=== PATIENT | female | born 1980 ===

== ENCOUNTER 2020-04-23 13:58 | Outpatient (REF) | payer OTHER, SELFPAY ==
--- NOTE | 2020-04-23 13:59 | XR_ITS ---
EXAMINATION: XR SHOULDER, LEFT CLINICAL INFORMATION: Pain in left shoulder COMPARISON: 01/04/2010 TECHNIQUE: Three views of the left shoulder. FINDINGS: There is no fracture or dislocation. The left glenohumeral joint is well aligned. There is mild narrowing of the joint space. The acromioclavicular joint is intact. The visualized ribs are intact. The visualized lung is clear. XR/XR shoulder LT min 2V IMPRESSION: Mild narrowing of the left glenohumeral joint space. Otherwise unremarkable radiographs.
== END 2020-04-23 13:59 | disposition home or self-care (01) ==
LOC: HO.HOSX 13:58
PROVIDERS: Visit Provider Orthopaedic Surgery
DX: M25.512 Pain in left shoulder (principal)
CPT/HCPCS: 20610; 73030; J1100

== ENCOUNTER 2020-05-18 14:22 | Outpatient (REF) | payer OTHER, SELFPAY | END 2020-05-18 14:23 | disposition home or self-care (01) | LOC: HO.LAB 14:22 | PROVIDERS: PCP Internal Medicine; Visit Provider Internal Medicine | DX: Z20.828 Contact with and (suspected) exposure to other viral communicable diseases (principal) | CPT/HCPCS: C9803; U0003 ==

== ENCOUNTER 2020-06-25 12:58 | Outpatient (REF) | payer OTHER, SELFPAY ==
[2020-06-25 13:37] LABS: MANUAL DIFF FLAG NO
[2020-06-25 13:48] LABS: Basophils Absolute Auto 0.1 X10*3/uL (0.0-0.2); Basophils Percent Auto 0.7 % (0-2); Eosinophils Absolute Auto 0.1 X10*3/uL (0.0-0.4); Eosinophils Percent Auto 1.8 % (0-4); Hematocrit 38.2 % (37-47); Imm Gran Abs Auto 0.01 X10*3/uL (0.00-0.03); Imm Gran Pct Auto 0.1 % (0.0-0.4); Lymphocytes Absolute Auto 2.4 X10*3/uL (1.2-4.9); Lymphocytes Percent Auto 31.8 % (20-40); Mean Corpuscular Hemoglobin 32.8 pg (27.0-33.0); Mean Corpuscular Volume 96.5 fL (80-98); Mean Platelet Volume 10.4 fL (9.4-12.3); Monocytes Absolute Auto 0.5 X10*3/uL (0.1-1.2); Monocytes Percent Auto 6.2 % (2-11); Neutrophils Absolute Auto 4.5 X10*3/uL (2.0-8.3); Neutrophils Percent Auto 59.4 % (45-73); Platelet Count 408 X10*3/uL (160-400); Red Blood Count 3.96 X10*6/uL (4.20-5.50); Red Cell Distribution Width 11.6 % (11.0-16.0); White Blood Count 7.6 X10*3/uL (4.8-10.8)
[2020-06-25 14:08] LABS: Alanine Aminotransferase 16 U/L (0-31); Albumin Level 4.1 g/dL (3.5-5.0); Alkaline Phosphatase 79 U/L (39-117); Anion Gap 12 (12-20); Aspartate Amino Transferase 15 U/L (5-31); Bilirubin Total 0.3 mg/dL (0.0-1.0); Blood Urea Nitrogen 24 mg/dL (9-16); Calcium 9.1 mg/dL (8.4-10.2); Carbon Dioxide 23 mmol/L (22-29); Chloride 103 mmol/L (96-108); Cholesterol 145 mg/dL; Estimated Glomerular Filt Rate > 60; Glucose Random 85 mg/dL (60-115); HDL Cholesterol 67 mg/dL; LDL Cholesterol Calculated 62 mg/dl; Potassium 4.7 mmol/l (3.3-5.1); Sodium 133 mmol/L (135-145); Total Protein 7.4 g/dL (6.5-8.0); Triglycerides 84 mg/dL
[2020-06-25 14:28] LABS: Ferritin 35 ng/mL (10-122)
[2020-06-25 14:47] LABS: Vitamin B12 480 pg/mL (200-900)
== END 2020-06-25 12:59 | disposition home or self-care (01) ==
LOC: HO.LAB 12:58
PROVIDERS: Visit Provider Internal Medicine
DX: Z00.00 Encounter for general adult medical examination without abnormal findings (principal); S43.422S Sprain of left rotator cuff capsule, sequela; Z98.84 Bariatric surgery status
CPT/HCPCS: 36415; 80053; 80061; 82607; 82728; 85025

== ENCOUNTER 2020-12-29 14:59 | Outpatient (REF) | payer OTHER, SELFPAY ==
--- NOTE | ~2020-12-29 | XR_ITS ---
EXAMINATION: XR LEFT SHOULDER XR LUMBAR SPINE CLINICAL INFORMATION: Left shoulder pain. Sciatica chronic left side. COMPARISON: 04/23/2020 TECHNIQUE: 4 view left shoulder and 3 view lumbar spine. FINDINGS: Left Shoulder: Views of the left shoulder do not demonstrate any evidence of acute fracture or dislocation. No calcific tendinitis. Acromial spur is present. No significant abnormality of the acromioclavicular joint is seen. Glenohumeral joint appears unremarkable. Lumbar Spine: 3 views of the lumbar spine demonstrate 5 [id number] lumbar vertebra. Pedicles are intact. There is some narrowing of the L5-S1 disc space with bilateral facet arthropathy. No significant abnormality of the sacroiliac joints identified. No acute fracture, spondylolisthesis, or spondylolysis. Patient is status post previous left upper quadrant surgery. XR/XR lumbar spine 2-3V IMPRESSION: No significant bony abnormality of the left shoulder. No evidence of acute fracture, spondylolisthesis, or spondylolysis of the lumbar spine. Degenerative disc disease with facet arthropathy L5-S1.
--- NOTE | ~2020-12-29 | XR_ITS ---
EXAMINATION: XR LEFT SHOULDER XR LUMBAR SPINE CLINICAL INFORMATION: Left shoulder pain. Sciatica chronic left side. COMPARISON: 04/23/2020 TECHNIQUE: 4 view left shoulder and 3 view lumbar spine. FINDINGS: Left Shoulder: Views of the left shoulder do not demonstrate any evidence of acute fracture or dislocation. No calcific tendinitis. Acromial spur is present. No significant abnormality of the acromioclavicular joint is seen. Glenohumeral joint appears unremarkable. Lumbar Spine: 3 views of the lumbar spine demonstrate 5 [id number] lumbar vertebra. Pedicles are intact. There is some narrowing of the L5-S1 disc space with bilateral facet arthropathy. No significant abnormality of the sacroiliac joints identified. No acute fracture, spondylolisthesis, or spondylolysis. Patient is status post previous left upper quadrant surgery. XR/XR shoulder LT min 2V IMPRESSION: No significant bony abnormality of the left shoulder. No evidence of acute fracture, spondylolisthesis, or spondylolysis of the lumbar spine. Degenerative disc disease with facet arthropathy L5-S1.
== END 2020-12-29 15:00 | disposition home or self-care (01) ==
LOC: HO.XRAY 14:59
PROVIDERS: PCP Physician Assistant; Visit Provider Physician Assistant
DX: M53.9 Dorsopathy, unspecified (principal); M54.5 Low back pain
CPT/HCPCS: 72100; 73030

== ENCOUNTER 2021-04-16 10:07 | Emergency (ER) | payer OTHER, SELFPAY ==
[2021-04-16 10:11] VITALS: BP 108/58; PULSE 79; RESP 16; TEMP 36.9; O2SAT 96; BMI 39.4
[2021-04-16] MEDS: Lidocaine HCl 1 % MPF 5 ML VIAL SUBCUT ×2 (11:04)
--- NOTE | 2021-04-16 11:28 | ED.SKABFB ---
HPI - Skin/Abscess/Foreign Bdy General Chief complaint: Skin/Abscess/Foreign Body Stated complaint: abscess Time Seen by Provider: 04/16/21 10:49 Source: patient Mode of arrival: ambulatory Limitations: no limitations History of Present Illness MD complaint: abscess/boil Onset (ago): day(s) (Since last ) Location: RUE (Axillary) Severity: severe Severity scale (1-10): >10 Quality: aching and constant Pain Consistency: constant Relieving factors: none Exacerbating factors: palpation and movement (Of the right arm) Context: none Associated symptoms: denies other symptoms Treatments prior to arrival: attempted to drain pus at home and other (Placed on Augmentin and Bactrim by PCP on Monday and had a I&D by PCP IN OFFICE) Related Data Home Medications Medication Instructions Recorded Confirmed cyclobenzaprine 10 mg tablet 10 mg PO BEDTIME 04/23/20 05/04/20 Previous Rx's Medication Instructions Recorded ibuprofen 600 mg tablet 600 mg PO Q8H PRN #90 tab 04/23/20 oxycodone 5 mg tablet 5 mg PO Q6H PRN #14 tab 04/16/21 Allergies Allergy/AdvReac Type Severity Reaction Status Date / Time SEASONAL ALLERGIES Allergy Intermediate RUNNY NOSE Uncoded 05/04/20 13:28 WATERY ITCHY EYES Review of Systems Review of Systems: Constitutional : No Fever, No Chills, Cardiovascular : No Chest Pain, No SOB Respiratory : No Dyspnea Gastrointestinal : No abdominal pain Musculoskeletal : No Joint Swelling Skin : positive skin abscess with surrounding erythema noted no skin laceration, No Foreign bodies, No rash Neuro : No Weakness, No Numbness/tingling Psych : No SI/HI/thoughts of self injury Yes all other systems are reviewed and are negative [facility] Past Medical History Attestation statement: The following information was validated with the patient. Medical History Asthma Surgical History History of tubal ligation (~2003) Hx of laparoscopic gastric banding (~2005) Family History Family History Mother No problems noted. Father No problems noted. 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 Blood pressure normal Heart rate normal. Respiration rate normal. Temperature normal. Oxygen saturation normal. Appearance: Alert. Oriented X3. No acute distress. Head: Normal external exam. Normocephalic. Atraumatic. Eyes: PERRLA. EOMI. Conjunctiva and sclera normal. Eyelids normal. ENT: Pharynx normal. Uvula midline. Moist mucous membranes. Neck: Normal inspection. Neck supple. FROM. CVS: Normal heart rate and rhythm. Respiratory: No respiratory distress. Painless inspiration. Skin: Skin warm and dry. Normal skin color. Normal skin turgor. To right axillary patient has a moderate-sized fluctuant abscess with mild surrounding erythema no streaking/induration or purulent drainage noted at this time. Otherwise no additional rashes/lesions/lacerations noted. Extremities: Extremities exhibit normal range of motion and nontender. Neuro: Oriented X 3. No motor deficit. No sensory deficit. Reflexes normal. Normal steady gait. No focal neuro deficits noted. Course Course Course Narrative: 40-year-old female presenting to the ED with complaints of worsening abscess to the right axillary since . She reports that she went to an urgent care and they prescribed her an antibiotic then her symptoms worsened therefore she called her PCP and she was seen by her PCP on Monday in the office and the PCP added another antibiotic therefore now she is on Bactrim and Augmentin at the same time and the PCP also performed an incision and drainage although patient reports that she has worsening swelling and came here for further evaluation treatment. On exam patient noted to have an abscess therefore she is now status post I&D of abscess. She tolerated procedure well. No complications. I instructed her to continue taking her antibiotics as previously prescribed and to return if any new or worsening symptoms and to follow up with primary care provider. Patient understands agrees with this plan. MDM - Skin/Abscess/Foreign Bdy Medical Records Attestation: I reviewed the patient's medical records. Procedures Abscess I/D Site: upper extremity (Axillary) Side (if applicable): right Local Anesthetic: lidocaine 1% Amount of anesthesia used (mL): 6 Technique: incised with blade Amount of fluid expressed (mL): 10 Sent for culture/gram staining?: No Irrigation: Yes Packing used?: none Complications: other (no complications ) Discharge Plan Discharge Clinical Impression: Cellulitis, Abscess of skin or subcutaneous tissue Patient Disposition: Home, Self-Care Instructions: Cellulitis (ED), Abscess Incision and Drainage (DC), Warm Compress or Soak (ED) Prescriptions: New oxycodone 5 mg tablet 5 mg PO Q6H PRN (Reason: pain) Qty: 14 RF: 0 No Action cyclobenzaprine 10 mg tablet 10 mg PO BEDTIME RF: 0 ibuprofen 600 mg tablet 600 mg PO Q8H PRN (Reason: pain shoulder) Qty: 90 RF: 0 Referrals: Janis Spears PA-C [Primary Care Provider] - 2 days Stand Alone Forms: Work/School Release Print Language: South African
== END 2021-04-16 11:38 | disposition home or self-care (01) ==
PROVIDERS: Emergency Provider Emergency Medicine; PCP Physician Assistant
DX: L02.411 Cutaneous abscess of right axilla (principal); L03.111 Cellulitis of right axilla
CPT/HCPCS: 10060; 99283; 99284

== ENCOUNTER 2023-03-20 09:47 | Outpatient (AMB) | payer OTHER, SELFPAY ==
[2023-03-20 09:55] VITALS: BP 128/72; PULSE 74; O2SAT 98; BMI 33.3
--- NOTE | 2023-03-20 09:55 | MHC.PC.OV ---
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 PMHx: Obesity SurgHx: Lap Band, Tubal Lig FHx: Mom: Asthma, Schizophrenia. Dad: Asthma SocHx: Smoked 7 years x 1/2 ppd. Quit cigs 2003. EtOH Occasional wine 1-2 drinks. No drugs. PFSH Medical History (Updated 03/20/23 @ 10:39 by Fredo Shelton) Acid reflux Sinusitis Lower back pain Asthma Surgical History (Updated 03/20/23 @ 10:37 by Fredo Shelton) Hx of laparoscopic gastric banding (~2005) History of tubal ligation (~2003) Family History (Updated 03/20/23 @ 10:13 by Chiquis Butler CMA) Mother Schizophrenia Mental health disorder Asthma Father Asthma Sister Substance abuse Social History (Updated 03/20/23 @ 10:12 by Chiquis Butler CMA) Household Members: Family Both parents involved: No Caregiver staying overnight: No Housing: House Are you a primary resident care provider to a significant other at home: No Do you presently have visiting nurse or other home services: No 75 years or older and lives alone: No Alcohol intake: current Patient Tobacco Use Status: Former Tobacco user e-Cigarette/Vaping Use: Never Used Use of substances other than those prescribed or required for medical reasons: No Have you been hit, kicked, punched, or otherwise hurt by someone within the past year? 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 1. Little interest or pleasure in doing things: several days 2. Feeling down, depressed, or hopeless: nearly every day 3. Trouble falling or staying asleep, or sleeping too much: nearly every day 4. Feeling tired or having little energy: more than half the days 5. Poor appetite or overeating: not at all 6. Feeling bad about yourself - or that you are a failure or have let yourself or your family down: more than half the days 7. Trouble concentrating on things, such as reading the newspaper or watching television: not at all 8. Moving or speaking so slowly that other people could have noticed. Or the opposite - being so fidgety or restless that you have been moving around a lot more than usual: nearly every day 9. Thoughts that you would be better off or of hurting yourself in some way: not at all Total score: 14 Source: Developed by Drs. Placido Dietrich, Ольга Galaviz, aKvon Mariee and colleagues, with an educational cristofer from [employer]. Thrive Questionnaire Date Thrive assessed: 03/20/23 I am a: Patient What is your living situation today?: I have a steady place to live Within the past 12 months, did the food you bought not last and you didn't have the money to get more?: Never true Within the past 12 months, did you worry whether your food would run out before you got money to buy more?: Never true Do you have trouble paying for medicines?: No Do you have trouble getting transportation to medical appointments?: No Do you have trouble paying your heating and electricity bill?: No Do you have trouble taking care of your child, family member or friend?: No Do you have trouble with day-to-day activities such as bathing, preparing meals, shopping, managing finances, etc.?: No Are you currently unemployed and looking for a job?: No Are you interested in more education?: No AUDIT C Alcohol Use Questionnaire (AUDIT-C) 1. How often do you have a drink containing alcohol?: 2-4 times a month 2. How many drinks containing alcohol do you have on a typical day when you are drinking?: 1 or 2 3. How often do you have six or more drinks on one occasion?: Never Total Score: 2 LATONYA-7 AMB Questionnaire LATONYA-7 Date LATONYA - 7 assessed: 03/20/23 Feeling nervous, anxious, or on edge: 0 = Not at all Not being able to stop or control worryin = Not at all Worrying too much about different things: 2 = More than half the days Trouble relaxin = Several days Being so restless that it is hard to sit still: 3 = Nearly every day Becoming easily annoyed or irritable: 2 = More than half the days Feeling afraid as if something awful might happen: 0 = Not at all Total LATONYA-7 score (0-4 normal; 5-9 mild; 10-14 moderate; 15-21 severe): 8 Source: Developed by Drs. Placido Dietrich, Ольга Galaviz, Kavon Mariee and colleagues, with an educational cristofer from [employer]. ACT Questionnaire In the past 4 weeks, how much of the time did your asthma keep you from getting as much done at work, school or at home?: Some of the time During the past 4 weeks, how often have you had shortness of breath?: 1-2 times a week During the past 4 weeks, how often did your asthma symptoms wake you up at night or earlier than usual in the morning?: Not at all During the past 4 weeks, how often have you had to use your rescue inhaler or nebulizer medication?: 1-2 times a week How would you rate your asthma control during the past 4 weeks?: Somewhat controlled Score: 17 Review of Systems Const Denies chills, Denies fatigue, Denies fever(s), Denies headache(s) and Denies weakness ENT Denies dizziness and Denies headache(s) Card Denies chest pain, Denies lightheadedness, Denies dyspnea and Denies other (Palpitations) Resp Denies cough, Denies dyspnea, Denies wheezing and Denies other ( shortness of breath) Musc Denies numbness and Denies tingling Neuro Denies dizziness, Denies headache(s), Denies numbness, Denies tingling, Denies paresthesias and Denies weakness Psych Denies anxiety and Denies depression Endo Denies fatigue Aller/Immun Denies wheezing Physical exam (Primary Care) Vital Signs: Last Vital Signs Pulse 74 03/20/23 09:55 BP 128/72 03/20/23 09:55 Pulse Ox 98 03/20/23 09:55 Oxygen Delivery Method Room Air 03/20/23 09:55 BMI result Body Mass Index 33.3 Tobacco/Smoking Status: Tobacco use Status Tobacco use date assessed 03/20/23 03/20/23 10:22 Patient Tobacco Use Status Former Tobacco user 03/20/23 10:22 e-Cigarette/Vaping Use Never Used 03/20/23 10:22 PHQ-9: PHQ-9 Score PHQ-9: Total score 14 03/20/23 10:28 Thrive Assessment: Date of Thrive Assessment Date Thrive assessed 03/20/23 03/20/23 10:22 Const General: no acute distress and well developed Nutritional Appearance: well nourished Orientation/consciousness: patient oriented [facility]3 [facility] Head: Yes normocephalic and Yes atraumatic Eyes General: appearance normal, both eyes and all related structures Pupils: Equal, round and reactive pupils present EOM: EOMs intact bilaterally Resp Effort & Inspection: normal respiratory effort Auscultation: clear to auscultation bilaterally Cardio Rate: regular rate Rhythm: regular rhythm Heart sounds: S1 normal heart sound present, S2 normal heart sound present, no gallops, no murmurs and no rubs Neuro General: patient oriented x3 and gait normal Cranial nerves: Yes Equal, round and reactive pupils present Psych Affect: normal affect Assessment and Plan Assessment & Plan (1) Obesity: Code(s): E66.9 - Obesity, unspecified Plan: S/p?lap?band Patient?wants?to?continue?weight?loss.??She?is?followed?by?Dr. Suh. Encouraged?her?to?follow-up?with?her?weight?management?specialist?as?recommended. She?also?notes?some?chafing?at?her?thighs?though?this?has?resolved?since?summer?has?ended. She?can?let?me?know?if?this?resumes?and?we?can?evaluate. (2) Hx of laparoscopic gastric banding: Onset Date: ~2005 Code(s): Z98.84 - Bariatric surgery status Plan: As?above,?follow-up?with?your?weight?management?specialist (3) History of tubal ligation: Onset Date: ~2003 Code(s): Z98.51 - Tubal ligation status Plan: Stable (4) Laboratory exam ordered as part of routine general medical examination: Code(s): Z00.00 - Encounter for general adult medical examination without abnormal findings Plan: Check?lab Orders: Orders Comprehensive Only. Panel Fast Today Z00.00 - Encounter for general adult medical examination without abnormal findings Complete Blood Count Auto Diff Today Z00.00 - Encounter for general adult medical examination without abnormal findings Microalbumin, Random (w Creat) Today I10 - Essential (primary) hypertension Lipid Panel Today Z00.00 - Encounter for general adult medical examination without abnormal findings Vitamin B12 and Folate Today E53.8 - Deficiency of other specified B group vitamins UA and rflx microscopic Today Z00.00 - Encounter for general adult medical examination without abnormal findings TSH reflex Free T4 Today Z00.00 - Encounter for general adult medical examination without abnormal findings Medications: Discontinued oxycodone Discontinued Reason: Patient Completed Course 5 mg PO Q6H PRN 14 tabs 0RF pain Coding Level of Care Code New Pt Level 3 (93918) Diagnoses Obesity E66.9 Hx of laparoscopic gastric banding Z98.84 History of tubal ligation Z98.51 Laboratory exam ordered as part of routine general medical examination Z00.00
== END 2023-03-20 10:49 | disposition home or self-care (01) ==
PROVIDERS: PCP Family Medicine; Visit Provider Family Medicine
DX: E66.9 Obesity, unspecified (principal); Z98.84 Bariatric surgery status; Z98.51 Tubal ligation status; Z68.33 Body mass index [BMI] 33.0-33.9, adult
CPT/HCPCS: 99203

== ENCOUNTER 2023-07-12 08:40 | Outpatient (AMB) | payer OTHER, SELFPAY ==
[2023-07-12 08:52] VITALS: BP 120/72; PULSE 64; O2SAT 96; BMI 33.9
--- NOTE | 2023-07-12 08:52 | A.OFFPC_ITS ---
Vital Signs 07/12/23 08:52 Height 5 ft 3 in Weight 191 lb 4 oz BMI 33.9 BP 120/72 Blood Pressure Location Lt brachial Position Sitting Pulse 64 Pulse Source Pulse Oximeter Pulse Oximetry (%) 96 Oxygen Delivery Method Room Air Intake Visit Reasons: CPE with f/u labs and health maint/ Pre OP Intake Note: Patient is here for her physical today. She is getting surgery on breasts and tummy tuck done, has a form to fill out. Allergies pineapple Allergy (Intermediate, Verified 07/12/23 08:59) Anaphylaxis SEASONAL ALLERGIES Allergy (Intermediate, Uncoded 07/12/23 08:59) RUNNY NOSE WATERY ITCHY EYES Medication List - Last Reconciled 07/12/23 by Tavares Canseco MD bupropion HCl 150 mg PO QAM diclofenac sodium 75 mg PO BID fluticasone propionate 50 mcg/actuation 1 spray intranasal BID ibuprofen 600 mg PO Q8H PRN omeprazole 20 mg PO DAILY 30 days Tobacco use date assessed: 03/20/23 Dental Screening Dental Screen Date: 07/12/23 HPI CPE with f/u labs and health maint/ Pre OP HPI Details 42 y/o female presents for an extended e xam with f/u labs and health maintenance. Also here for a pre-operative clearance No recent labs to review. Pt reports GERD and has been taking OTC omeprazole every 2 days for relief. Patient presents for preoperative clearance prior to breast reduction & abdominoplasty. Procedure: Breast Reduction & Abdominoplasty Date: 07/28/23 Surgeon: Yessenia Loyola Anesthesia: General Cardiac Hx: None Pulmonary Hx: None Prior Surgical complications: None Prior Anesthesia Complications: None Coag Issues: None Functional [place]: Good functional reserve. HPI Comments History of Present Illness Details Documentation assistance for Tavares Canseco MD, was provided by Fredo Shelton,? Credit Control Administrator on 07/12/2023 9:29 AM SUSAN. Lizett, Dr. Canseco, have read, observed, and verified documentation. [facility] Medical History Acid reflux Sinusitis Lower back pain Asthma Surgical History Hx of laparoscopic gastric banding (~2005) History of tubal ligation (~2003) Family History Mother Schizophrenia Mental health disorder Asthma Father Asthma Sister Substance abuse Social History Household Members: Family Both parents involved: No Caregiver staying overnight: No Housing: House Are you a primary care tech to a significant other at home: No Do you presently have visiting nurse or other home services: No 75 years or older and lives alone: No Alcohol intake: current Patient Tobacco Use Status: Former Tobacco user e-Cigarette/Vaping Use: Never Used service: No Current occupational status: employed 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 1. Little interest or pleasure in doing things: not at all 2. Feeling down, depressed, or hopeless: not at all 3. Trouble falling or staying asleep, or sleeping too much: not at all 4. Feeling tired or having little energy: not at all 5. Poor appetite or overeating: not at all 6. Feeling bad about yourself - or that you are a failure or have let yourself or your family down: not at all 7. Trouble concentrating on things, such as reading the newspaper or watching television: not at all 8. Moving or speaking so slowly that other people could have noticed. Or the opposite - being so fidgety or restless that you have been moving around a lot more than usual: not at all 9. Thoughts that you would be better off or of hurting yourself in some way: not at all Total score: 0 Source: Developed by Drs. Placido Dietrich, Ольга Galaviz, Kavon Mariee and colleagues, with an educational cristofer from [employer]. Thrive Questionnaire Date Thrive assessed: 07/12/23 I am a: Patient What is your living situation today?: I have a steady place to live Within the past 12 months, did the food you bought not last and you didn't have the money to get more?: Never true Within the past 12 months, did you worry whether your food would run out before you got money to buy more?: Never true Do you have trouble paying for medicines?: No Do you have trouble getting transportation to medical appointments?: No Do you have trouble paying your heating and electricity bill?: No Do you have trouble taking care of your child, family member or friend?: No Do you have trouble with day-to-day activities such as bathing, preparing meals, shopping, managing finances, etc.?: No Are you currently unemployed and looking for a job?: No Are you interested in more education?: No THRIVE Score: 0 AUDIT C Alcohol Use Questionnaire (AUDIT-C) 1. How often do you have a drink containing alcohol?: Monthly or less 2. How many drinks containing alcohol do you have on a typical day when you are drinking?: 1 or 2 3. How often do you have six or more drinks on one occasion?: Never Total Score: 1 LATONYA-7 AMB Questionnaire LATONYA-7 Date LATONYA - 7 assessed: 07/12/23 Feeling nervous, anxious, or on edge: 0 = Not at all Not being able to stop or control worryin = Not at all Worrying too much about different things: 0 = Not at all Trouble relaxin = Not at all Being so restless that it is hard to sit still: 0 = Not at all Becoming easily annoyed or irritable: 0 = Not at all Feeling afraid as if something awful might happen: 0 = Not at all Total LATONYA-7 score (0-4 normal; 5-9 mild; 10-14 moderate; 15-21 severe): 0 Source: Developed by Drs. Placido Dietrich, Ольга Galaviz, Kavon Mariee and colleagues, with an educational cristofer from [employer]. Review of Systems Const Denies chills, Denies fatigue, Denies fever(s), Denies headache(s) and Denies weakness Eyes Denies change in vision ENT Denies dizziness, Denies headache(s), Denies hearing loss, Denies nasal congestion, Denies sinus pain, Denies sinus pressure and Denies sore throat Card Denies chest pain, Denies lightheadedness, Denies dyspnea and Denies other (palpitations) Resp Denies cough, Denies dyspnea and Denies wheezing GI Denies abdominal pain, Denies melena, Denies hematochezia, Denies change in bowel habits, Denies dyspepsia and Denies nausea Denies hematuria and Denies dysuria Musc Denies abnormal gait, Denies myalgias, Denies arthralgias, Denies numbness and Denies tingling Skin/Breast Denies rash, Denies unusual bruising and Denies wounds Neuro Denies abnormal gait, Denies dizziness, Denies headache(s), Denies memory loss, Denies numbness, Denies Sensory deficit (Neuro), Denies tingling and Denies weakness Psych Denies anxiety, Denies depression and Denies memory loss Endo Denies cold intolerance, Denies fatigue, Denies heat intolerance, Denies polydip yang and Denies polyuria Joao/Lymph Denies easy bleeding and Denies easy bruising Aller/Immun Denies wheezing Physical exam (Primary Care) Vital Signs: Last Vital Signs Pulse 64 07/12/23 08:52 BP 120/72 07/12/23 08:52 Pulse Ox 96 07/12/23 08:52 Oxygen Delivery Method Room Air 07/12/23 08:52 BMI result Body Mass Index 33.9 Tobacco/Smoking Status: Tobacco use Status Tobacco use date assessed 03/20/23 07/12/23 08:53 Patient Tobacco Use Status Former Tobacco user 07/12/23 08:53 e-Cigarette/Vaping Use Never Used 07/12/23 08:53 PHQ-9: PHQ-9 Score PHQ-9: Total score 0 07/12/23 09:08 Thrive Assessment: Date of Thrive Assessment Date Thrive assessed 07/12/23 07/12/23 09:08 Const General: no acute distress, well developed, alert and awake Nutritional Appearance: well nourished Orientation/consciousness: patient oriented x3 HENMT Head: Yes normocephalic and Yes atraumatic Ears: hearing grossly normal bilaterally and TM's normal bilaterally General nose exam: Normal external nose present and Normal nares present Mouth: Normal oral and palatal mucosa present and moist mucous membranes Teeth and gingiva: dentition normal Throat: Yes posterior oropharynx normal Eyes General: appearance normal, both eyes and all related structures Pupils: Equal, round and reactive pupils present and Pupil accommodation reflex normal EOM: EOMs intact bilaterally Neck Neck: Yes normal visual inspection, Yes no lymphadenopathy and Yes trachea midline Thyroid: Thyroid normal Carotids: no bruits Lymphatic: no lymphadenopathy noted Chest Chest palpation & inspection: normal inspection of the chest Resp Effort & Inspection: normal respiratory effort Auscultation: clear to auscultation bilaterally Cardio Rate: regular rate Rhythm: regular rhythm Heart sounds: S1 normal heart sound present, S2 normal heart sound present, no gallops, no murmurs and no rubs Bruits: no abdominal aortic bruits and no carotid bruits GI Palpation (GI): No Abdominal aortic bruit present, Soft to palpation, nontender, No hepatosplenomegaly present and No Rebound tenderness present Auscultation: normal bowel sounds General: Yes no CVA tenderness Back/Spine/Pelvis Back: no CVA tenderness Cervical Spine: cervical ROM normal and No Cervical spine tenderness Thoracic/Lumbar Spine: thoraco-lumbar ROM normal, No pain with thoraco-lumbar ROM, No thoracic spinal tenderness and No lumbar spinal tenderness Skin Lesions: no lesions Rashes: no rashes Trauma: no lacerations or abrasions Wounds: no wounds Nails: normal Neuro General: patient oriented x3 Cranial nerves: Yes Equal, round and reactive pupils present Cognition (Neuro): normal cognition Gait exam (Neuro): Normal gait present Motor exam (neuro): 5/5 motor strength present throughout Sensory Exam: No Sensory deficit (Neuro) Deep tendon reflexes (DTR's): Right patellar reflex intensity grade: 2+ and Left patellar reflex intensity grade: 2+ Extrem General: Yes normal to inspection and No edema Psych Appearance: grossly normal Affect: normal affect Attitude: cooperative Thought process: Normal thought process present Assessment and Plan Assessment & Plan (1) Adult general medical exam: Code(s): Z00.00 - Encounter for general adult medical examination without abnormal findings Plan: 42-year-old?female?presents?for?co mplete?physical?exam?and?preoperative?clearance Encouraged?healthy?diet?with?active?lifestyle?and?plenty?of?exercise (2) Screening for cervical cancer: Code(s): Z12.4 - Encounter for screening for malignant neoplasm of cervix Plan: Patient?requests?referral?to?[facility]?OBGYN Refer (3) Breast cancer screening by mammogram: Code(s): Z12.31 - Encounter for screening mammogram for malignant neoplasm of breast Plan: Mammogram?in?June?2023?was?negative?for?malignancies?and?recommended?annual?s creening (4) Pre-operative clearance: Code(s): Z01.818 - Encounter for other preprocedural examination Plan: Patient?requires?clearance?prior?to?breast?reduction?surgery?and?abdominoplasty No?history?of?cardiac?or?pulmonary?disease?and?her?pulmonary?and?cardiac?exams?t michael?are?normal. No?history?of?prior?surgical?or?anesthesia?complications. No?bleeding?or?clotting?disorders. Good?functional?reserve Low?risk?patient?for intermediate?risk?procedure ?no?contraindications?to?proceeding?with?proposed?surgery Orders: Referrals IMPORT/EXPORT SPECIALIST Referral Z12.4 - Encounter for screening for malignant neoplasm of cervix Medications: New omeprazole 20 mg PO DAILY 30 days 30 caps 3RF Coding Level of Care Code Est Pt Level 4 (05555) Diagnoses Adult general medical exam Z00.00 Screening for cervical cancer Z12.4 Breast cancer screening by mammogram Z12.31 Pre-operative clearance Z01.818
== END 2023-07-12 10:02 | disposition home or self-care (01) ==
PROVIDERS: PCP Family Medicine; Visit Provider Family Medicine
DX: Z00.00 Encounter for general adult medical examination without abnormal findings (principal); Z12.31 Encounter for screening mammogram for malignant neoplasm of breast
CPT/HCPCS: 99396

== ENCOUNTER 2023-11-03 08:25 | Outpatient (AMB) | payer OTHER, SELFPAY ==
--- NOTE | 2023-11-03 08:32 | AM.OFFWIN_ITS ---
Intake Vital Signs 3 11/03/23 08:36 Height 5 ft 3 in Weight 183 lb 2 oz BMI 32.4 BP 108/64 Blood Pressure Location Lt brachial Position Sitting Pulse 83 Pulse Source Pulse Oximeter Temp 98.1 F Temp Source Oral Pulse Oximetry (%) 99 Oxygen Delivery Method Room Air Intake Visit Reasons: potential infection in stitches Intake Note: Patient had breast implants on 09/13/23 and wants to make sure the area where the stitches are, are not infected. Concern under left breast and left right nipple. Patient Tobacco Use Status: Former Tobacco user Is last menstrual period known: No Allergies pineapple Allergy (Intermediate, Verified 11/03/23 08:51) Anaphylaxis SEASONAL ALLERGIES Allergy (Intermediate, Uncoded 11/03/23 08:34) RUNNY NOSE WATERY ITCHY EYES Medication List - Last Reconciled 11/03/23 by Evelyn Buitrago, CERTIFIED ALCOHOL DRUG COUNSELOR-BC bupropion HCl XL 150 mg PO QAM diclofenac sodium 75 mg PO BID fluticasone propionate 50 mcg/actuation 1 spray intranasal BID ibuprofen 600 mg PO Q8H PRN omeprazole 20 mg PO DAILY 30 days Do you need a note to return to daycare/school/sports/work: No HPI HPI Comments 2 History of Present Illness0 Details Here today with concerns with infection of suture status post breast implants. Had breast implants placed in [place] 09/13/2023. Had follow up with the surgeon 10/17/2023. Has been wearing a sports bar and returned to the gym. She thinks that the friction as well as the sweating has caused this infection. Over the right anterior nipple is a red scabbed area, under the left breast surgical incision are 3 slightly red and scabbed areas where the sutures were. There is no streaking. No fever. Incidental noting of what looks to be an encapsulation in the right breast. [facility] Medical History Acid reflux Sinusitis Lower back pain Asthma Surgical History Hx of laparoscopic gastric banding (~2005) History of tubal ligation (~2003) Family History Mother Schizophrenia Mental health disorder Asthma Father Asthma Sister Substance abuse Social History Household Members: Family Both parents involved: No Caregiver staying overnight: No Housing: House Are you a primary child care worker to a significant other at home: No Do you presently have visiting nurse or other home services: No 75 years or older and lives alone: No Alcohol intake: current Patient Tobacco Use Status: Former Tobacco user e-Cigarette/Vaping Use: Never Used service: No Current occupational status: employed 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 Erythematous, scabbed area 2. Erythematous, scabbed area 3. Erythematous, scabbed area 4. Erythematous, scabbed area 5. Start of encapsulation Assessment & Plan Assessment & Plan (1) Skin infection: Code(s): L08.9 - Local infection of the skin and subcutaneous tissue, unspecified Plan: . Plan . This note is constructed using voice recognition software. While every effort has been made to ensure accuracy in light rail operator, still errors may have been included Sometimes, these errors may affect the content or meaning of the given sentence . Total time spent caring for the patient today was 30 minutes. This includes time spent before the visit reviewing the chart, time spent during the visit, and time spent after the visit on documentation Medications: New 2 cephalexin 500 mg PO QID 7 days 28 caps 0RF Patient Instructions: Call surgeon, mention concern for R breat encapsulation Take AB as prescribed and let surgeon know See if you can get in for an appt Ok to use PAPER tape over these areas to avoid friction Wash daily and keep clean and dry If you develop fever, increasing redness or drainage then you need to seek addl care Get your Td shot today at the pharmacy, you were due in 2020. Coding Level of Care Code Est Pt Level 4 (67404) Diagnoses Skin infection L08.9
[2023-11-03 08:36] VITALS: BP 108/64; PULSE 83; TEMP 36.7; O2SAT 99; BMI 32.4
== END 2023-11-03 09:01 | disposition home or self-care (01) ==
PROVIDERS: PCP Family Medicine; Visit Provider Nurse Practitioner Family
DX: L08.9 Local infection of the skin and subcutaneous tissue, unspecified (principal)
CPT/HCPCS: 99214

== ENCOUNTER 2024-01-24 15:09 | Outpatient (REF) | payer OTHER, SELFPAY ==
[2024-01-25 02:19] LABS: CT PCR NOT DETECTED (Not Detect.); NG PCR NOT DETECTED (Not Detect.)
[2024-01-25 10:52] LABS: Bacterial Vaginosis PCR NEGATIVE (Negative); Candida Group PCR NOT DETECTED (Not Detect); Candida glab krusei PCR NOT DETECTED (Not Detect); Trichomonas vaginalis PCR NOT DETECTED (Not Detect)
[2024-01-26 15:58] LABS: HPV mRNA E6/E7 Not Detected (Not Detected)
== END 2024-01-24 15:10 | disposition home or self-care (01) ==
LOC: HO.LAB 15:09
PROVIDERS: PCP Family Medicine; Visit Provider Advanced Practice Midwife
DX: Z01.419 Encounter for gynecological examination (general) (routine) without abnormal findings (principal); Z11.51 Encounter for screening for human papillomavirus (HPV); N89.8 Other specified noninflammatory disorders of vagina; Z98.51 Tubal ligation status; Z98.84 Bariatric surgery status
CPT/HCPCS: 0352U; 87491; 87591; 87624; 88175; 99386

== ENCOUNTER 2024-01-24 15:09 | Outpatient (AMB) | payer OTHER, SELFPAY ==
[2024-01-24 15:11] VITALS: BP 112/60; BMI 32.4
--- NOTE | 2024-01-24 15:11 | A.OFFVIS_ITS ---
Vital Signs 01/24/24 15:11 Height 5 ft 3 in Weight 183 lb BMI 32.4 BP 112/60 Intake Visit Reasons: New patient Annual Director Of Public Works Required: No Director Of Public Works Services: Director Of Public Works Present Information Interpreted: clinical only Laboratory Technical Specialist: Laboratory Technical Specialist Present Allergies pineapple Allergy (Intermediate, Verified 11/03/23 08:51) Anaphylaxis SEASONAL ALLERGIES Allergy (Intermediate, Uncoded 11/03/23 08:34) RUNNY NOSE WATERY ITCHY EYES Medication List - Last Reconciled 01/24/24 by Keira Huertas CNM bupropion HCl XL 150 mg PO QAM cephalexin 500 mg PO QID 7 days diclofenac sodium 75 mg PO BID fluticasone propionate 50 mcg/actuation 1 spray intranasal BID ibuprofen 600 mg PO Q8H PRN omeprazole 20 mg PO DAILY 30 days Is last menstrual period known: Yes Last menstrual period: 12/26/23 Do you need a note to return to daycare/school/sports/work: No HPI HPI New patient Annual: Details: Patient here is a exam but she was a patient of the midwifery practice in 2003 delivered both of her children at [facility] with or [employer]. She had her tubes tied. She is healthy she had gastric sleeve a few years back and lost weight and then 4 months ago she had abdominal plasty and breast implants and lift she had this cosmetic surgeries done in [place] she said the surgeon ordered a mammogram and has a time so she screened for breast cancer in [facility]. She is going to the gym working on losing her last 20 lb to get to her goal. 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 She has no worries about infection. [facility] Medical History Acid reflux Sinusitis Lower back pain Asthma Surgical History Hx of laparoscopic gastric banding (~2005) History of tubal ligation (~2003) Family History Mother Schizophrenia Mental health disorder Asthma Father Asthma Sister Substance abuse Social History Household Members: Family Both parents involved: No Caregiver staying overnight: No Housing: House Are you a primary managed care specialist to a significant other at home: No Do you presently have visiting nurse or other home services: No 75 years or older and lives alone: No Alcohol intake: current Patient Tobacco Use Status: Former Tobacco user e-Cigarette/Vaping Use: Never Used service: No Current occupational status: employed 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 Current occupational exposures/hazards: No Cognitive needs: No Hearing needs: No Vision needs: No Female Reproductive History Menstrual Age of Menarche: 14 Duration of menses: 3-5 days Date of last menstrual period: 12/26/23 control method: none Total pregnancies: 2 Full term: 2 History of abnormal pap smear: No (2019,negative per patient) Date of last Bone Density Screenin07/04/23 (negative) Physical Exam Vital Signs: Last Vital Signs BP 112/60 01/24/24 15:11 BMI result Body Mass Index 32.4 Const Other: Has scars from recent abdominal plasty and breast implant and lift surgery from September. Patient states she followed up with the breast surgeon after her visit with her primary for the initial antibiotic treatment when there was evidence of infection 1 postop. She had been then put stronger antibiotics and the infection cleared. General: healthy appearing, comfortable, no acute distress, well developed and alert Nutritional Appearance: average body habitus Orientation/consciousness: patient oriented x3 Limitations: no limitations HEENT Head: Yes normocephalic Neck Neck: Yes normal visual inspection Chest Other: Scars are healing from breast miss an implant implants are fairly firm bilaterally. Chest palpation & inspection: normal inspection of the chest Breast/axilla inspection: normal inspection of the breasts and normal inspection of the axillae Breast/axilla palpation: normal palpation of the breasts and normal palpation of the axillae Resp Effort & Inspection: normal respiratory effort GI Inspection: Yes normal to inspection, No Abdominal wall edema and No distended Palpation (GI): Soft to palpation and nontender Other: Normal external exam vagina pink and healthy appearing cervix multiparous pink smooth healthy appearing with clear healthy mucous with some white mucus cervix is long close thick mobile nontender uterus anteverted the challenging to feel completely secondary to firm abdominal muscle and scar tissue status post abdominal plasty. good tone w Kegel General: Yes bladder normal to palpation External Female Exam: normal external appearance and normal appearance of the urethra Speculum Exam - Vagina: normal appearance of the vagina, normal palpation and normal vaginal discharge Speculum Exam - Cervix: normal appearance of the cervix, normal palpation and nontender Bimanual exam- vagina & uterus: normal bimanual exam, normal palpation, uterine size normal, bladder normal to palpation, consistency normal, normal palpation, uterine mobility normal, uterine shape normal, No Cervical tenderness present, non-tender and no cervical motion tenderness Bimanual Exam- Adnexa, other: normal adnexae, no masses, normal and No adnexal tenderness Neuro General: patient oriented x3 Assessment & Plan Assessment & Plan (1) History of tubal ligation: Onset Date: ~2003 Code(s): Z98.51 - Tubal ligation status Category: Surgical (2) Hx of laparoscopic gastric banding: Onset Date: ~2005 Code(s): Z98.84 - Bariatric surgery status Category: Surgical (3) Breast cancer screening by mammogram: Code(s): Z12.31 - Encounter for screening mammogram for malignant neoplasm of breast Category: Medical (4) Well woman exam with routine gynecological exam: Code(s): Z01.419 - Encounter for gynecological examination (general) (routine) without abnormal findings Category: Medical Plan -----Discussed in this visit the following: healthy balanced diet, regular and consistent exercise, getting recommended health screens, doing the best she can for her particular health concerns, kegel exercises, pap smear screening and followup recommendations, mammography screening and SBE, normal changes in cycles in her life stage--- . Reviewed her mammogram screening it will probably be done annually now per the orders from last year from the breast surgeon She is working on eating well and losing last lb and getting in shape and getting tone she drives 12 hours a day 5 days a week so she goes to the gym morning to make up for the sitting. She is following up with her primary care provider Pap smear and testing for STIs with vaginal cultures done vaginal discharge appeared completely within normal limits. Very good tone with Kegel. RTC 1 year Orders: Orders PAP + HPV E6/E7 rfx 18/45 Today Z01.419 - Encounter for gynecological examination (general) (routine) without abnormal findings CT NG by PCR Today N89.8 - Other specified noninflammatory disorders of vagina Bacterial Vaginosis Panel Today N89.8 - Other specified noninflammatory disorders of vagina Coding Level of Care Code New Pt Prev Care 40-64y(51442) Diagnoses History of tubal ligation Z98.51 Hx of laparoscopic gastric banding Z98.84 Breast cancer screening by mammogram Z12.31 Well woman exam with routine gynecological exam Z01.419
== END 2024-01-24 15:53 | disposition home or self-care (01) ==
PROVIDERS: PCP Family Medicine; Visit Provider Advanced Practice Midwife
DX: Z01.419 Encounter for gynecological examination (general) (routine) without abnormal findings (principal)
CPT/HCPCS: 99386

== ENCOUNTER → 2024-02-07 15:12 | Outpatient (BNVA) | payer OTHER, SELFPAY | PROVIDERS: PCP Family Medicine; Visit Provider Physician Assistant Surgical ==

== ENCOUNTER 2024-02-08 09:52 | Outpatient (AMB) | payer OTHER, SELFPAY ==
--- NOTE | 2024-02-08 09:59 | MHC.PC.OV ---
Vital Signs 02/08/24 10:02 Height 5 ft 3 in Weight 182 lb 4 oz BMI 32.3 BP 112/66 Blood Pressure Location Rt brachial Position Sitting Respiration 14 Pulse 62 Pulse Source Pulse Oximeter Pulse Oximetry (%) 98 Oxygen Delivery Method Room Air Intake Visit Reasons: Health issues Intake Note: follow up Allergies pineapple Allergy (Intermediate, Verified 02/08/24 10:35) Anaphylaxis SEASONAL ALLERGIES Allergy (Intermediate, Uncoded 02/08/24 08:08) RUNNY NOSE WATERY ITCHY EYES Medication List - Last Reconciled 02/08/24 by Evelyn Buitrago, [facility]- bupropion HCl XL 150 mg PO QAM fluticasone propionate 50 mcg/actuation 1 inh inhalation Q12H ibuprofen 400 mg PO Q8H multivitamin (Multiple Vitamins tablet) 1 tab PO DAILY omeprazole 20 mg PO DAILY 30 days Tobacco use date assessed: 02/08/24 Dental Screening Dental Screen Date: 07/12/23 HPI HPI Comments History of Present Illness Details 43 y/o F here today w/ c/o anxiety and grief: Unfortunately her mother 1 week ago. Since this time she has not sleeping well. She reports that she is able fall asleep for about 2-3 hours however can not return to sleep. Then she feels sleepy all day like she wants to nap. She has been using melatonin without effect. Overall she feels stressed out. She is currently on Wellbutrin, has been on this for some time as tolerating this well. Has never been on the on medications to help her mood. She is active with a counselor in the past however this was via phone she did not think this was helpful. At this time she is willing to pursue a new referral to in person counselor to help her with anxiety and grief. In addition she also reports poor eating habits with the loss of her mother. Reports either not eating enough or eating too much and has had some weight gain. She denies SI HI. Exam Awake alert oriented, no acute distress Regular rate and rhythm Lung sounds clear to auscultation bilat Tearful when talking about her mom and stressors however appropriate Plan Increase Wellbutrin XL from 150 mg daily to 300 mg daily. Start hydroxyzine 25 mg take 1-2 tablets as needed at bedtime to help with anxiety and insomnia. Referred nurse navigator to help establish care with a counselor. Return to office in 6 weeks to follow up, sooner as needed. This note is constructed using voice recognition software. While every effort has been made to ensure accuracy in licensed occupational therapy assistant, still errors may have been included Sometimes, these errors may affect the content or meaning of the given sentence . Total time spent caring for the patient today was 30 minutes. This includes time spent before the visit reviewing the chart, time spent during the visit, and time spent after the visit on documentation [facility] Medical History (Updated 02/08/24 @ 10:[address] [facility]-) Acid reflux Sinusitis Lower back pain Asthma Surgical History (Updated 02/08/24 @ 08:12 by Ana Laura Gambino [facility]) Hx of abdominoplasty Hx of breast implant Hx of laparoscopic gastric banding (~2005) History of tubal ligation (~2003) Family History Mother Schizophrenia Mental health disorder Asthma Father Asthma Sister Substance abuse Social History Household Members: Family Both parents involved: No Caregiver staying overnight: No Housing: House Are you a primary career coordinator to a significant other at home: No Do you presently have visiting nurse or other home services: No 75 years or older and lives alone: No Alcohol intake: current Patient Tobacco Use Status: Former Tobacco user e-Cigarette/Vaping Use: Never Used service: No Current occupational status: employed 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 Placido Dietrich, Ольга Galaviz, Kavon Mariee and colleagues, with an educational cristofer from [employer]. Physical exam (Primary Care) Vital Signs: Last Vital Signs Pulse 62 02/08/24 10:02 Resp 14 02/08/24 10:02 BP 112/66 02/08/24 10:02 Pulse Ox 98 02/08/24 10:02 Oxygen Delivery Method Room Air 02/08/24 10:02 BMI result Body Mass Index 32.3 Tobacco/Smoking Status: Tobacco use Status Tobacco use date assessed 02/08/24 02/08/24 10:04 Patient Tobacco Use Status Former Tobacco user 02/08/24 10:04 e-Cigarette/Vaping Use Never Used 02/08/24 10:04 Thrive Assessment: Date of Thrive Assessment Date Thrive assessed 07/12/23 02/08/24 10:04 Assessment and Plan Assessment & Plan Orders: Referrals Nurse Navigator Referral F41.1 - Generalized anxiety disorder, F43.21 - Adjustment disorder with depressed mood Medications: New bupropion HCl XL 300 mg PO QAM 30 tabs 1RF hydroxyzine HCl 1-2 tabs as needed at bedtime to help with anxiety and insomnia 25 mg PO BEDTIME PRN 45 tabs 1RF anxiety and insomnia Patient Instructions: Crisis Hotlines Suicide prevention, domestic violence, and other crisis hotlines for youth, young adults, and their friends and families. [facility]: The [facility] helps youth who have run away, are thinking about running away, or who already ran away but are ready to come home. Parents and guardians can also contact the hotline if they are worried about their child running away or if their child has already left home. The hotline is available 24 hours a day, seven days a week. Youth, parents, and guardians can also use the online chat feature on the [facility]s website to ask for help and get support, or [place] [address]. [facility] National Suicide Prevention Lifeline: The National Suicide Prevention Lifeline is a network of local crisis centers that are available 26/12 to provide support for youth and adults who are in any kind of emotional crisis. In addition to the main hotline number listed above, there are several other numbers to call depending on your needs: Central African Language: Deaf and Hard of Hearin1-703.498.1680 Veterans: Disaster Distress: Anyone can also use their online chat feature on their website. National Suicide Prevention Lifeline [facility] Helpline: The [facility] Helpline is available to anyone in [place] who is need of emotional support. Anyone can call or text the helpline to receive help from specially trained volunteers. [place] high school and college students can also get online support through the [employer]_ program. For high school students, volunteers ages 15-18 are available Monday- from 6-9PM. For college students, [employer]_ is available Monday-Monday from 5-9PM. The [employer] - The [employer] Project is a 26/12 crisis intervention and suicide prevention hotline for LGBTQ youth. Youth can also text Jose Juan to for support, or use the online chat feature on the [employer]'s website. [employer] is available Monday-Monday between 3-10PM. [employer] is available seven days a week between 3-10PM. [employer]: SafeLink is for anyone who is being affected by domestic violence or dating violence. Volunteers at [employer] speak Z[place]ian and [place] African, and [employer] also has a service that can provide translation in more than 130 languages. TTY: Coding Level of Care Code Est Pt Level 4 (73812)
[2024-02-08 10:02] VITALS: BP 112/66; PULSE 62; RESP 14; O2SAT 98; BMI 32.3
== END 2024-02-08 10:51 | disposition home or self-care (01) ==
PROVIDERS: PCP Family Medicine; Visit Provider Nurse Practitioner Family
DX: F41.1 Generalized anxiety disorder (principal); F43.21 Adjustment disorder with depressed mood
CPT/HCPCS: 99214

== ENCOUNTER 2024-03-20 12:18 | Outpatient (AMB) | payer OTHER, SELFPAY ==
--- NOTE | 2024-03-20 12:20 | A.OFFPC_ITS ---
Vital Signs 03/20/24 12:25 Height 5 ft 3 in Weight 184 lb 6 oz BMI 32.7 BP 102/66 Blood Pressure Location Lt brachial Position Sitting Respiration 13 Pulse 63 Pulse Source Pulse Oximeter Pulse Oximetry (%) 99 Oxygen Delivery Method Room Air Intake Visit Reasons: fu LATONYA/Insomnia Wellbutrin ^ Hydroxy start Intake Note: follow up on insomnia and anxiety Allergies pineapple Allergy (Intermediate, Verified 03/20/24 12:23) Anaphylaxis SEASONAL ALLERGIES Allergy (Intermediate, Uncoded 02/08/24 08:08) RUNNY NOSE WATERY ITCHY EYES Medication List - Last Reconciled 03/20/24 by Evelyn Buitrago, LEATHER TACKER-BC bupropion HCl XL 300 mg PO QAM hydroxyzine HCl 25 mg PO BEDTIME PRN ibuprofen 400 mg PO Q8H mometasone 100 mcg/actuation (Asmanex HFA) 1 puff inhalation BID 30 days multivitamin (Multiple Vitamins tablet) 1 tab PO DAILY omeprazole 20 mg PO DAILY 30 days Tobacco use date assessed: 02/08/24 Dental Screening Dental Screen Date: 07/12/23 HPI HPI Comments History of Present Illness Details 43 y/o F with asthma, obesity here today to fu on anxiety, grief and insomnia At the last office visit her wellbutrin xl was increased from 150 to 300mg QAM Started on hydroxyzine 25 mg take 1-2 tablets as needed at bedtime to help with anxiety and insomnia Counselor referral placed Since this time, reports Sleeping good. Taking hydroxyzine 25mg at 1900 and sleeping through the night. Happy w/ this. [place] like she had hair loss after increasing the Wellbutrin, so went back to taking 150mg; reports hair loss is resolved. In regards to her anxiety sx, they remain. Hard time focusing mind else where . Seems to be worse at bedtime. Counseling first appt 05/2024 Now w/ marital issues; sleeping in separate beds. Has been exercising, going to the gym. Denies SI/HI. Asthma - Asmanex not available. Needs alternative. Due for flu shot OA/Left knee pain, was active w [facility] in the past; she called them to make appt but was told she needs a referral. Exam Awake alert oriented, no acute distress Regular rate and rhythm Lung sounds clear to auscultation bilat, occasional dry cough w/o distress noted Mood and affect appropriate Plan Flu shot today Start paxil 10 mg QAM start taking on 03/24 when you start the Wellbutrin taper. Taper off wellbutrin xl Take it every day for 1 week while starting the paxil 10mg Then next week take every other day Then Monday and Monday Then Stop Asmanex not available at pharmacy. Start Arnuity 100mcg 1 puff QD. Rinse mouth out after. Referred to [facility] per request Return to office in 6 weeks to follow up on LATONYA, insomnia and Asthma, sooner PRN This note is constructed using voice recognition software. While every effort has been made to ensure accuracy in intelligence officer, still errors may have been included Sometimes, these errors may affect the content or meaning of the given sentence . Total time spent caring for the patient today was 30 minutes. This includes time spent before the visit reviewing the chart, time spent during the visit, and time spent after the visit on documentation [facility] Medical History (Updated 03/20/24 @ 12:56 by NAUN KwonP-) Acid reflux Sinusitis Lower back pain Asthma Surgical History (Updated 02/08/24 @ 08:12 by Ana Laura Gambino [facility]) Hx of abdominoplasty Hx of breast implant Hx of laparoscopic gastric banding (~2005) History of tubal ligation (~2003) Family History Mother Schizophrenia Mental health disorder Asthma Father Asthma Sister Substance abuse Social History Household Members: Family Both parents involved: No Caregiver staying overnight: No Housing: House Are you a primary patient care specialist to a significant other at home: No Do you presently have visiting nurse or other home services: No 75 years or older and lives alone: No Alcohol intake: current Patient Tobacco Use Status: Former Tobacco user e-Cigarette/Vaping Use: Never Used service: No Current occupational status: employed 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 1. Little interest or pleasure in doing things: not at all 2. Feeling down, depressed, or hopeless: not at all 3. Trouble falling or staying asleep, or sleeping too much: not at all 4. Feeling tired or having little energy: not at all 5. Poor appetite or overeating: not at all 6. Feeling bad about yourself - or that you are a failure or have let yourself or your family down: not at all 7. Trouble concentrating on things, such as reading the newspaper or watching television: not at all 8. Moving or speaking so slowly that other people could have noticed. Or the opposite - being so fidgety or restless that you have been moving around a lot more than usual: not at all 9. Thoughts that you would be better off or of hurting yourself in some way: not at all Total score: 0 24913 - PHQ-9 Billing: Yes Source: Developed by Drs. Placido Dietrich, Ольга Galaviz, Kavon Mariee and colleagues, with an educational rcistofer from [employer]. Thrive Questionnaire Date Thrive assessed: 03/20/24 I am a: Patient What is your living situation today?: I choose not to answer this question Within the past 12 months, did the food you bought not last and you didn't have the money to get more?: I choose not to answer this question Within the past 12 months, did you worry whether your food would run out before you got money to buy more?: I choose not to answer this question Do you have trouble paying for medicines?: I choose not to answer this question Do you have trouble getting transportation to medical appointments?: I choose not to answer this question Do you have trouble paying your heating and electricity bill?: I choose not to answer this question Do you have trouble taking care of your child, family member or friend?: I choose not to answer this question Do you have trouble with day-to-day activities such as bathing, preparing meals, shopping, managing finances, etc.?: I choose not to answer this question Are you currently unemployed and looking for a job?: I choose not to answer this question Are you interested in more education?: I choose not to answer this question Please select the resources that you would like help with: None Currently or been in a relationship where the following occur: I choose not to answer THRIVE Score: 0 AUDIT C Alcohol Use Questionnaire (AUDIT-C) 1. How often do you have a drink containing alcohol?: Never Total Score: 0 LATONYA-7 AMB Questionnaire LATONYA-7 Date LATONYA - 7 assessed: 03/20/24 Feeling nervous, anxious, or on edge: 0 = Not at all Not being able to stop or control worryin = Not at all Worrying too much about different things: 0 = Not at all Trouble relaxin = Not at all Being so restless that it is hard to sit still: 0 = Not at all Becoming easily annoyed or irritable: 0 = Not at all Feeling afraid as if something awful might happen: 0 = Not at all Total LATONYA-7 score (0-4 normal; 5-9 mild; 10-14 moderate; 15-21 severe): 0 Source: Developed by Drs. Placido Dietrich, Ольга Galaviz, Kavon Mariee and colleagues, with an educational cristofer from [employer]. LATONYA-7 Assessment Billing LATONYA-7 Assessment Tool: LATONYA-7 Assessment 12731 Physical exam (Primary Care) Vital Signs: Last Vital Signs Pulse 63 03/20/24 12:25 Resp 13 03/20/24 12:25 BP 102/66 03/20/24 12:25 Pulse Ox 99 03/20/24 12:25 Oxygen Delivery Method Room Air 03/20/24 12:25 BMI result Body Mass Index 32.7 BMI Assessment/Plan discussion: High (active w/ bariatrics) Tobacco/Smoking Status: Tobacco use Status Tobacco use date assessed 02/08/24 03/20/24 12:22 Patient Tobacco Use Status Former Tobacco user 03/20/24 12:22 e-Cigarette/Vaping Use Never Used 03/20/24 12:22 PHQ-9: PHQ-9 Score PHQ-9: Total score 0 03/20/24 12:30 Thrive Assessment: Date of Thrive Assessment Date Thrive assessed 03/20/24 03/20/24 12:26 Currently or been in a relationship where the following occur: I choose not to answer Office Procedures Flu Questionnaire Does the patient have a severe egg allergy?: No Does the patient have severe life threatening allergies?: No Does the patient have a fever or illness today?: No Has the patient ever had Guillain-[place] Syndrome?: No Has the patient ever had any past reaction to a flu shot?: No Immunizations Fluarix Triv [id number] (PF) 45 mcg (15 mcg x 3)/0.5 mL IM syringe Performing Provider: GABRIEL Kwon Performing Location: [facility] Administered by: Keira Sultana RN on 03/20/24 12:38 Dose Route Admin Location Dispensed Lot Number Expiration Date [facility] [employer] Maintenance Mechan[employer] 0.5 mL IM Left Deltoid 0.5 mL [id number] 12/02/24 [id number] [employer] VIS Given Date VIS Provided VIS Publication Date 03/20/24 Single Vaccine 21 Eligibility Eligibility Date Funding Source Not [facility] Eligible 03/20/24 Private Coding Level of Care Code Est Pt Level 4 (96312) Complex EM visit Add On G2211 Diagnoses LATONYA (generalized anxiety disorder) F41.1 Grief F43.21 Chronic pain of left knee M25.562; G89.29 Chronicity: chronic Primary osteoarthritis involving multiple joints M15.0 Osteoarthritis location: multiple joints Osteoarthritis type: primary Mild intermittent asthma in adult without complication J45.20 BMI 32.0-32.9,adult Z68.32 Class 1 obesity due to excess calories with serious comorbidity and body mass index (BMI) of 32.0 to 32.9 in adult E66.811; E66.09; Z68.32 Obesity type: due to excess calories Serious obesity comorbidity presence: with serious comorbidity Additional Codes LATONYA-7 Assessment Billing - LATONYA-7 Assessment Tool: LATONYA-7 Assessment 54053 ([id number]) Assessment & Plan Assessment & Plan (1) LATONYA (generalized anxiety disorder): Code(s): F41.1 - Generalized anxiety disorder Category: Medical Plan: . (2) Grief: Code(s): F43.21 - Adjustment disorder with depressed mood Category: Medical Plan: . (3) Left knee pain: Code(s): M25.562 - Pain in left knee Category: Medical Qualifiers: Chronicity: chronic Qualified Code(s): M25.562 - Pain in left knee; G89.29 - Other chronic pain (4) Osteoarthritis: Code(s): M19.90 - Unspecified osteoarthritis, unspecified site Category: Medical Qualifiers: Osteoarthritis location: multiple joints Osteoarthritis type: primary Qualified Code(s): M15.0 - Primary generalized (osteo)arthritis Plan: . (5) Mild intermittent asthma in adult without complication: Code(s): J45.20 - Mild intermittent asthma, uncomplicated Category: Medical Plan: . (6) BMI 32.0-32.9,adult: Code(s): Z68.32 - Body mass index [BMI] 32.0-32.9, adult Category: Medical Plan: . (7) Class 1 obesity with body mass index (BMI) of 32.0 to 32.9 in adult: Code(s): E66.811 - Obesity, class 1; Z68.32 - Body mass index [BMI] 32.0-32.9, adult Category: Medical Qualifiers: Obesity type: due to excess calories Serious obesity comorbidity presence: with serious comorbidity Qualified Code(s): E66.811 - Obesity, class 1; E66.09 - Other obesity due to excess calories; Z68.32 - Body mass index [BMI] 32.0-32.9, adult Plan: . Plan . Orders: Orders Influenza [id number] Immunization Today Z23 - Encounter for immunization Referrals Rheumatology Referral M19.90 - Unspecified osteoarthritis, unspecified site, M25.562 - Pain in left knee Medications: New fluticasone furoate 100 mcg/actuation (Arnuity Ellipta) 1 inh inhalation DAILY 30 ea 11RF paroxetine HCl (Paxil) 10 mg PO DAILY 30 tabs 1RF Refilled hydroxyzine HCl 1-2 tabs as needed at bedtime to help with anxiety and insomnia 25 mg PO BEDTIME PRN 45 tabs 1RF anxiety and insomnia Discontinued bupropion HCl XL Discontinued Reason: Doctor's Order 300 mg PO QAM 30 tabs 1RF mometasone 100 mcg/actuation (Asmanex HFA) Discontinued Reason: Insurance Denied 1 puff inhalation BID 30 days 13 grams 4RF Patient Instructions: Start Paxil 10mg on 03/24/24 and take every morning Taper off wellbutrin xl Take it every day for 1 week while starting the paxil 10mg (start 03/24) Then next week take every other day (start 03/31) Then Monday and Monday (start Apr 07) Then Stop (by Apr 14 you should be OFF wellbtrin)
[2024-03-20 12:25] VITALS: BP 102/66; PULSE 63; RESP 13; O2SAT 99; BMI 32.7
== END 2024-03-20 12:53 | disposition home or self-care (01) ==
PROVIDERS: PCP Family Medicine; Visit Provider Nurse Practitioner Family
DX: F41.1 Generalized anxiety disorder (principal); F43.21 Adjustment disorder with depressed mood; M25.562 Pain in left knee; G89.29 Other chronic pain; M15.0 Primary generalized (osteo)arthritis; J45.20 Mild intermittent asthma, uncomplicated; Z68.32 Body mass index [BMI] 32.0-32.9, adult; E66.811 Obesity, class 1; E66.09 Other obesity due to excess calories; Z23 Encounter for immunization

== ENCOUNTER → 2024-03-20 12:18 | Outpatient (BNVA) | payer OTHER, SELFPAY | PROVIDERS: PCP Family Medicine; Visit Provider Nurse Practitioner Family | DX: Z23 Encounter for immunization (principal); F41.1 Generalized anxiety disorder; F43.21 Adjustment disorder with depressed mood; M25.562 Pain in left knee; G89.29 Other chronic pain; M15.0 Primary generalized (osteo)arthritis; J45.20 Mild intermittent asthma, uncomplicated; E66.811 Obesity, class 1; Z68.32 Body mass index [BMI] 32.0-32.9, adult; Z71.3 Dietary counseling and surveillance | CPT/HCPCS: 90471; 90656; 96127; 99212 ==

== ENCOUNTER 2024-05-06 12:33 | Outpatient (AMB) | payer OTHER, SELFPAY ==
--- NOTE | 2024-05-06 12:34 | A.OFFPC_ITS ---
Vital Signs 05/06/24 12:38 Height 5 ft 3 in Weight 180 lb BMI 31.9 BP 118/68 Blood Pressure Location Lt brachial Position Sitting Respiration 13 Pulse 67 Pulse Source Pulse Oximeter Pulse Oximetry (%) 97 Oxygen Delivery Method Room Air Intake Visit Reasons: 6 weeks 30 min fu LATONYA/insomnia/asthma Intake Note: routine follow up, patient also needs pain management referral Body Component Engineer Required: No Allergies pineapple Allergy (Intermediate, Verified 05/06/24 12:47) Anaphylaxis SEASONAL ALLERGIES Allergy (Intermediate, Uncoded 05/06/24 12:47) RUNNY NOSE WATERY ITCHY EYES Medication List - Last Reconciled 05/06/24 by Evelyn Buitrago, SENIOR ANDROID DEVELOPER- fluticasone furoate 100 mcg/actuation (Arnuity Ellipta) 1 inh inhalation DAILY hydroxyzine HCl 25 mg PO BEDTIME PRN ibuprofen 400 mg PO Q8H multivitamin (Multiple Vitamins tablet) 1 tab PO DAILY omeprazole 20 mg PO DAILY 30 days paroxetine HCl (Paxil) 10 mg PO DAILY Tobacco use date assessed: 02/08/24 Dental Screening Dental Screen Date: 07/12/23 HPI HPI Comments History of Present Illness Details 43 y/o F with asthma, obesity here today to fu on anxiety, grief and insomnia Here today for 6 weeks to follow up on LATONYA, insomnia and Asthma She was started on Arnuity 100 mcg 1 puff daily at the last office visit for her asthma. She was taking daily. Rinsing her mouth out after use. However she continues to report that she has a cough. She reports that any time that she laughs she goes into a bronchospasm. She has chronic GERD. Taking omeprazole 20 mg up to 3 tablet daily with no result. Dietary modifications do not seem to help. She complains of chronic low back pain; sciatica affecting bilat lower ext Presents today with x-rays of her lumbar spine and left knee performed 04/11/2024. The lumbar spine x-ray shows no fracture, no spondylosis, no spondylolysis thesis, no focal lesions, mild degenerative changes at L3-L4 and L4-L5 at L5 and S1 there is prominent disc space narrowing the x-ray of the left knee is normal She was referred to physical therapy at [facility]. She has had 1 appointment so far. She was interested in a referral to a pain management center Exam Awake alert oriented, no acute distress Regular rate and rhythm Lung sounds clear to auscultation bilat, occasional dry cough w/o distress noted Mood and affect appropriate Moves all extremities x4, normal tone & strength Plan Continue Paxil 10 mg along with p.r.n. hydroxyzine. Encouraged to engage in counseling as scheduled. Continue Arnuity, add Combivent 1 puff 4 times a day to help control asthma symptoms. Stop omeprazole as this is not working for GERD, start pantoprazole 20 mg p.o. b.i.d.. Continue with dietary modifications Refer to [facility] Return to office in July/August for complete physical exam, sooner as needed This note is constructed using voice recognition software. While every effort has been made to ensure accuracy in licensed investment sales assistant, still errors may have been included Sometimes, these errors may affect the content or meaning of the given sentence . Total time spent caring for the patient today was 30 minutes. This includes time spent before the visit reviewing the chart, time spent during the visit, and time spent after the visit on documentation [facility] Medical History (Updated 05/06/24 @ 13:05 by Evelyn Buitrago [facility]-) Acid reflux Sinusitis Lower back pain Asthma Surgical History (Updated 02/08/24 @ 08:12 by Ana Laura Gambino [facility]) Hx of abdominoplasty Hx of breast implant Hx of laparoscopic gastric banding (~2005) History of tubal ligation (~2003) Family History Mother Schizophrenia Mental health disorder Asthma Father Asthma Sister Substance abuse Social History Household Members: Family Both parents involved: No Caregiver staying overnight: No Housing: House Are you a primary medicare specialist to a significant other at home: No Do you presently have visiting nurse or other home services: No 75 years or older and lives alone: No Alcohol intake: current Patient Tobacco Use Status: Former Tobacco user e-Cigarette/Vaping Use: Never Used service: No Current occupational status: employed 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 09663 - PHQ-9 Billing: Patient declined-do not bill Source: Developed by Drs. Placido Dietrich, Ольга Galaviz, Kavon Mariee and colleagues, with an educational cristofer from [employer]. Thrive Questionnaire Date Thrive assessed: 05/06/24 I am a: Patient What is your living situation today?: I choose not to answer this question Within the past 12 months, did the food you bought not last and you didn't have the money to get more?: I choose not to answer this question Within the past 12 months, did you worry whether your food would run out before you got money to buy more?: I choose not to answer this question Do you have trouble paying for medicines?: I choose not to answer this question Do you have trouble getting transportation to medical appointments?: I choose not to answer this question Do you have trouble paying your heating and electricity bill?: I choose not to answer this question Do you have trouble taking care of your child, family member or friend?: I choose not to answer this question Do you have trouble with day-to-day activities such as bathing, preparing meals, shopping, managing finances, etc.?: I choose not to answer this question Are you currently unemployed and looking for a job?: I choose not to answer this question Are you interested in more education?: I choose not to answer this question Please select the resources that you would like help with: None Currently or been in a relationship where the following occur: I choose not to answer THRIVE Score: 0 LATONYA-7 AMB Questionnaire LATONYA-7 Date LATONYA - 7 assessed: 05/06/24 Source: Developed by Drs. Placido Dietrich, Ольга Galaviz, Kavon Mariee and colleagues, with an educational cristofer from [employer]. ACT Questionnaire In the past 4 weeks, how much of the time did your asthma keep you from getting as much done at work, school or at home?: A little of the time During the past 4 weeks, how often have you had shortness of breath?: 1-2 times a week During the past 4 weeks, how often did your asthma symptoms wake you up at night or earlier than usual in the morning?: Not at all During the past 4 weeks, how often have you had to use your rescue inhaler or nebulizer medication?: 2-3 times a week How would you rate your asthma control during the past 4 weeks?: Somewhat controlled ACT Interpretation: Positive ACT Branch: New medication Score: 19 Physical exam (Primary Care) Vital Signs: Last Vital Signs Pulse 67 05/06/24 12:38 Resp 13 05/06/24 12:38 BP 118/68 05/06/24 12:38 Pulse Ox 97 05/06/24 12:38 Oxygen Delivery Method Room Air 05/06/24 12:38 BMI result Body Mass Index 31.9 Tobacco/Smoking Status: Tobacco use Status Tobacco use date assessed 02/08/24 05/06/24 12:37 Patient Tobacco Use Status Former Tobacco user 05/06/24 12:37 e-Cigarette/Vaping Use Never Used 05/06/24 12:37 Thrive Assessment: Date of Thrive Assessment Date Thrive assessed 05/06/24 05/06/24 12:37 Currently or been in a relationship where the following occur: I choose not to answer Coding Level of Care Code Est Pt Level 4 (57560) Complex EM visit Add On G2211 Diagnoses Osteoarthritis of spine with radiculopathy, lumbar region M47.26 Spinal osteoarthritis complication: with radiculopathy Back pain with sciatica M54.9; M54.30 LATONYA (generalized anxiety disorder) F41.1 Chronic GERD K21.9 Mild intermittent asthma in adult without complication J45.20 Additional Codes Asthma Control Questionnaire - ACT Interpretation: Positive ([id number]) Assessment & Plan Assessment & Plan (1) Degenerative joint disease (DJD) of lumbar spine: Code(s): M47.816 - Spondylosis without myelopathy or radiculopathy, lumbar region Category: Medical Qualifiers: Spinal osteoarthritis complication: with radiculopathy Qualified C ode(s): M47.26 - Other spondylosis with radiculopathy, lumbar region (2) Back pain with sciatica: Code(s): M54.9 - Dorsalgia, unspecified; M54.30 - Sciatica, unspecified side Category: Medical (3) LATONYA (generalized anxiety disorder): Code(s): F41.1 - Generalized anxiety disorder Category: Medical (4) Chronic GERD: Code(s): K21.9 - Gastro-esophageal reflux disease without esophagitis Category: Medical (5) Mild intermittent asthma in adult without complication: Code(s): J45.20 - Mild intermittent asthma, uncomplicated Category: Medical Plan . Orders: Referrals Pain Management Referral M47.816 - Spondylosis without myelopathy or radiculopathy, lumbar region, M54.30 - Sciatica, unspecified side, M54.9 - Dorsalgia, unspecified Medications: New ipratropium-albuterol 20-100 mcg/actuation (Combivent Respimat) space evenly during waking hours 1 puff inhalation QID 30 days 4 grams 12RF pantoprazole 20 mg PO DAILY 60 tabs 3RF Refilled paroxetine HCl (Paxil) 10 mg PO DAILY 30 tabs 6RF Discontinued omeprazole Discontinued Reason: Doctor's Order 20 mg PO DAILY 30 days 30 caps 3RF
[2024-05-06 12:38] VITALS: BP 118/68; PULSE 67; RESP 13; O2SAT 97; BMI 31.9
== END 2024-05-06 13:01 | disposition home or self-care (01) ==
PROVIDERS: PCP Family Medicine; Visit Provider Nurse Practitioner Family
DX: M47.26 Other spondylosis with radiculopathy, lumbar region (principal); M54.9 Dorsalgia, unspecified; M54.30 Sciatica, unspecified side; F41.1 Generalized anxiety disorder; K21.9 Gastro-esophageal reflux disease without esophagitis; J45.20 Mild intermittent asthma, uncomplicated

== ENCOUNTER → 2024-05-06 12:33 | Outpatient (BNVA) | payer OTHER, SELFPAY | PROVIDERS: PCP Family Medicine; Visit Provider Nurse Practitioner Family | DX: M47.26 Other spondylosis with radiculopathy, lumbar region (principal); M54.9 Dorsalgia, unspecified; M54.30 Sciatica, unspecified side; F41.1 Generalized anxiety disorder; K21.9 Gastro-esophageal reflux disease without esophagitis; J45.20 Mild intermittent asthma, uncomplicated | CPT/HCPCS: 96160; 99212 ==

== ENCOUNTER 2024-05-14 14:09 | Outpatient (AMB) | payer OTHER, SELFPAY ==
--- NOTE | 2024-05-14 14:15 | A.OFFVIS_ITS ---
Vital Signs 05/14/24 14:20 Height 5 ft 3 in Weight 188 lb 4 oz BMI 33.3 BP 112/70 Blood Pressure Location Rt brachial Position Sitting Pulse 57 Pulse Source Pulse Oximeter Pulse Oximetry (%) 97 Oxygen Delivery Method Room Air Intake Visit Reasons: Spondylosis without myelopathy or radiculopathy Intake Note: Pain today 12/12 College Professor Required: No Accompanied by: Self / Same As Patient Allergies pineapple Allergy (Intermediate, Verified 05/14/24 14:18) Anaphylaxis SEASONAL ALLERGIES Allergy (Intermediate, Uncoded 05/06/24 12:47) RUNNY NOSE WATERY ITCHY EYES HPI HPI Spondylosis without myelopathy or radiculopathy: Details: Patient is a pleasant 43 years old female with history of lower back pain, left shoulder, bilateral breast reduction with implants and abdominoplasty (07/2023), lumbar degenerative disc disease with facet arthropathy at L5-S1, presents today for initial evaluation of lower back pain with radicular symptoms and left knee pain. Knee pain has been present for 6 months, back pain for over 10 years. Denies any recent trauma, injury or falls. Reports mechanical fall downstairs over 10 years which worsened back pain. She has been seen at [facility] and received injections in 2016 with good relief. Patient also went to [facility] in [place] few months ago and completed lumbar spine and knee xray but had no injections. She is currently in physical therapy at [facility]. Back pain is axial and also significantly increases with flexing or bending forward with reproduction of pain on right side. She also reports anterior left knee pain with walking, climbing stairs or cold weather. 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 Denies any fever or chills, abdominal or groin pain, weakness, bladder or bowel dysfunction or saddle anesthesia. Oswestry Low Back Disability Score=21 (moderate disability) Location: Lower back radiates down bilateral legs; left knee worse Duration: Chronic pain for >10 years ago, h/o mechanical fall downstairs Characteristics of symptom or complaint: Aching, numbness, sharp, shooting, radiating, tingling, burning, sore Aggravating or associated factors: Prolonged standing, ADLs, movements, walking, climbing stairs, cold weather Relieving factors: Ibuprofen, laying flat, heating pad, Tylenol, rest, activity modifications Treatment: PT at [facility], lumbar and knee xrays; h/o injections at [facility] Medical History (Updated 05/16/24 @ 09:42 by MARCELINO Da Silva) Acid reflux Sinusitis Lower back pain Asthma Surgical History (Updated 02/08/24 @ 08:12 by Ana Laura Gambino [facility]) Hx of abdominoplasty Hx of breast implant Hx of laparoscopic gastric banding (~2005) History of tubal ligation (~2003) Family History (Reviewed 01/24/24 @ 15:19 by Gena Courtney [facility]) Mother Schizophrenia Mental health disorder Asthma Father Asthma Sister Substance abuse Social History Household Members: Family Both parents involved: No Caregiver staying overnight: No Housing: House Are you a primary customer care voice consultant to a significant other at home: No Do you presently have visiting nurse or other home services: No 75 years or older and lives alone: No Alcohol intake: current Alcohol type: beer and other Comment: Fridays- 3 drinks or 5 beers Patient Tobacco Use Status: Former Tobacco user e-Cigarette/Vaping Use: Never Used service: No Current occupational status: employed 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 Alert and oriented. Mood and affect appropriate. Follows and participates in conversation appropriately. Respiratory effort is unlabored. No cough. Able to transition from sit to stand unassisted. Ambulates with bilaterally normal heel strike and toe off, increased pain on the left. General: Yes no CVA tenderness Back/Spine/Pelvis Other: Patient is able to walk and stand on heels and tip toes with mild difficulty on the left otherwise demonstrating good motor tone. No limping. Can flex forward to 70-75 degrees and extend to 5-10 degrees before experiencing lumbar pain, worse pain with bending and flexing forward. Demonstrates 5/5 strength of quadriceps bilaterally as well as flexion/dorsiflexion of bilateral feet against resistance. 2+ pedal pulses bilaterally. Straight leg rise with dorsiflexion negative bilaterally. +2 patellar and achilles reflexes bilaterally. Facet loading test positive bilaterally. Maris sign positive bilateraly. David?s, Pelvic compression and Stinchfield tests are negative bilaterally. No groin pain with I/E hip rotations. Valsalva maneuver negative. Back: no CVA tenderness Cervical Spine: cervical ROM normal, cervical muscular tenderness, No Cervical spine tenderness and No step off deformity Thoracic/Lumbar Spine: thoracic and lumbar spine normal to inspection, No Thoracic/lumbar spine scar(s), Lasegue's sign negative, straight leg raise negative bilaterally, pain with thoraco-lumbar ROM, paraspinal muscle tenderness, thoraco-lumbar ROM limited, No thoracic spinal tenderness and lumbar spinal tenderness (L4-S1) Pelvis: no buttock tenderness and no sciatic notch tenderness Sacroiliac joints: bilaterally tender to palpation Neuro General: moves all extremities, Normal light touch and pain sensation, no focal motor deficits and CN's II-XI intact bilaterally Motor exam (neuro): 5/5 motor strength present throughout, no tremor noted and Motor abnormalities not present Extrem General: Yes capillary refill normal, Yes no clubbing, cyanosis or edema and Yes no calf tenderness Results Reviewed Results Reviewed: XR LEFT SHOULDER XR LUMBAR SPINE 12/29/20 CLINICAL INFORMATION: Left shoulder pain. Sciatica chronic left side. COMPARISON: 04/23/2020 TECHNIQUE: 4 view left shoulder and 3 view lumbar spine. FINDINGS: Left Shoulder: Views of the left shoulder do not demonstrate any evidence of acute fracture or dislocation. No calcific tendinitis. Acromial spur is present. No significant abnormality of the acromioclavicular joint is seen. Glenohumeral joint appears unremarkable. Lumbar Spine: 3 views of the lumbar spine demonstrate 5 xyc-nyz-oitvowz lumbar vertebra. Pedicles are intact. There is some narrowing of the L5-S1 disc space with bilateral facet arthropathy. No significant abnormality of the sacroiliac joints identified. No acute fracture, spondylolisthesis, or spondylolysis. Patient is status post previous left upper quadrant surgery. IMPRESSION: No significant bony abnormality of the left shoulder. No evidence of acute fracture, spondylolisthesis, or spondylolysis of the lumbar spine. Degenerative disc disease with facet arthropathy L5-S1. Assessment & Plan Assessment & Plan (1) Degenerative joint disease (DJD) of lumbar spine: Code(s): M47.816 - Spondylosis without myelopathy or radiculopathy, lumbar region Category: Medical Qualifiers: Spinal osteoarthritis complication: with radiculopathy Qualified Code(s): M47.26 - Other spondylosis with radiculopathy, lumbar region (2) Back pain with sciatica: Code(s): M54.9 - Dorsalgia, unspecified; M54.30 - Sciatica, unspecified side Category: Medical (3) Lumbar radiculopathy: Code(s): M54.16 - Radiculopathy, lumbar region Category: Medical (4) Left knee pain: Code(s): M25.562 - Pain in left knee Category: Medical Qualifiers: Chronicity: chronic Qualified Code(s): M25.562 - Pain in left knee; G89.29 - Other chronic pain (5) Vertebrogenic low back pain: Code(s): M54.51 - Vertebrogenic low back pain Category: Medical Plan MRI of the lumbar spine to assess for neural integrity and compression to further evaluate discogenic and radicular symptoms. Back pain has been resistant to conservative treatments, including PT, NSAIDs, oral and topical medications, heat therapy and activity modifications. Medical release sent to [facility] for most recent lumbar and knee x-ray. Briefly discussed interventional treatments for arthritic knee and back pain including diagnostic injections for potential neuromodulation or RFA procedures. Informational pamphlet provided to patient. Scripts provided for lidocaine patch, gabapentin and diclofenac sodium. Patient will stop Ibuprofen. Discussed side effects and precautions with patient. Patient is aware that gabapentin can make her drowsy, she is aware not to drink alcohol or drive after taking it. All questions and concerns have been answered and patient agreed with the treatment plan. Patient will return to the clinic to discuss results of the MRI? findings when it is done and consider interventional therapy as indicated.? Orders: Orders MR lumbar spine wo con 05/14/24 M47.26 - Other spondylosis with radiculopathy, lumbar region, M54.16 - Radiculopathy, lumbar region, M54.30 - Sciatica, unspecified side, M54.51 - Vertebrogenic low back pain, M54.9 - Dorsalgia, unspecified Medications: New lidocaine 5% leave on most painful area for up to 12 hrs topical 30 days 30 ea 0RF pain M54.16 - Radiculopathy, lumbar region, M54.30 - Sciatica, unspecified side, M54.9 - Dorsalgia, unspecified diclofenac sodium 75 mg PO BID 30 days PRN 60 tabs 0RF pain M47.26 - Other spondylosis with radiculopathy, lumbar region, M54.16 - Radiculopathy, lumbar region, M54.30 - Sciatica, unspecified side, M54.9 - Dorsalgia, unspecified gabapentin 300 mg PO BEDTIME 30 days 30 caps 0RF pain M47.26 - Other spondylosis with radiculopathy, lumbar region, M54.16 - Radiculopathy, lumbar region, M54.30 - Sciatica, unspecified side, M54.9 - Dorsalgia, unspecified Coding Level of Care Code New Pt Level 4 (55966) Complex EM visit Add On G2211 Diagnoses Osteoarthritis of spine with radiculopathy, lumbar region M47.26 Spinal osteoarthritis complication: with radiculopathy Back pain with sciatica M54.9; M54.30 Lumbar radiculopathy M54.16 Chronic pain of left knee M25.562; G89.29 Chronicity: chronic Vertebrogenic low back pain M54.51
[2024-05-14 14:20] VITALS: BP 112/70; PULSE 57; O2SAT 97; BMI 33.3
--- OUTSIDE RECORDS SUMMARY | 2024-05-15 22:01 | XMS_ITS | Continuity of Care Document ---
Author Organization [facility] Address [address] [place] [address] Phone Care Team Providers Care Whiskey Filterer Name Role Phone Keon MIRZA, RVT, MARISSA, [...] E&M Established 10 Mins- CT & [place] [facility], [address] [place] [address] [address] [place] Hassan [place], [id number], [place] tel:[phone] CVR - [place] [facility] Pruritus, unspecifiedCh ronic venous hypertension (idiopathic) with other complications of bilateral lower extremityRest less legs syndrome 0 4 Keon MIRZA RVT, RPVI Robert. [address] [place] [address], [place], [id number], [place]. tel:[phone] [facility], [address] [place] [address] [address]ie [place], [id number], [place] tel:[phone] CVR - [place] [facility] Pain in right legPain in left leg 4 Keon MIRZA RVT, RPVI Robert. [address] [place] [address], [place], [id number], [place]. tel:[phone] Referring Provider: Placido Herbert MD, RVT, RPVI, [address] [place] [address], [place], [address] . tel:[phone] Divina [facility], [address] [place] [address] [address] [place] Hassan [place], [id number], [place] tel:[phone] CVR - [place] [facility] Encounter for follow-up examination after completed treatment for conditions other than malignant neoplasmChron ic venous hypertension (idiopathic) with other complications of left lower extremity 0 4 Keon MIRZA RVT, RPVI Robert. [address] [place] [address], [place], [id number], [place]. tel:[phone] Referring Provider: Placido Herbert MD, RVT, MARISSA, [address] [place] [address], [place], [address] . tel:[phone] Divina [facility], [address] [place] [address] [address] [place] Hassan [place], [id number], [place] tel:[phone] CVR - [place] [facility] Chronic venous hypertension (idiopathic) with inflammation of left lower extremity Apr-0 4 Keon MIRZA RVT, RPVI Robert. [address] [place] [address], Suite [facility] [place], [id number], [place]. tel:[phone] Divina [facility], [address] [place] [address] [address] Bennie Hassan MD, [id number], [place] tel:[phone] CVR - [place] [facility] Chronic venous hypertension (idiopathic) with inflammation of left lower extremity Apr-0 4 Keon MIRZA RVT, RPVI Robert. [address] [place] [address], Suite [facility], [place], [id number], [place]. tel:[phone] Referring Provider: Placido Herbert MD, RVT, MARISSA, [address] [place] [address] Suite [facility], [place], [address] . tel:[phone] Divina [facility], [address] [place] [address] [address] [facility] [place], [id number], [place] tel:[phone] CVR - [place] [facility] Encounter for follow-up examination after completed treatment for conditions other than malignant nePain in right leg 4 Keon MIRZA RVT, RPVI Robert. [address] [place] [address], [place], [id number], [place]. tel:[phone] Referring Provider: Placido Herbert MD, RVT, MARISSA, [address] [place] [address], [place], [address] . tel:[phone] Divina [facility], [address] [place] [address] [address] 1000[place]ennie [place], [id number], [place] tel:[phone] CVR - [facility] Varicose veins of right lower extremity with other complications 4 Keon MIRZA RVT, RPVI Robert. [address] [place] [address], [place] [address], [facility], [id number], [place]. tel:[phone] Divina [facility], [address] [place] [address] [address] [place]ie Hassan [place], [id number], [place] tel:[phone] CVR - [facility] Chronic venous hypertension (idiopathic) with inflammation of right lower extremity 4 Keon MIRZA, RVT, VI Placido. [address] [place] [address], [place], [id number], [place]. tel:[phone] Referring Provider: Placido Herbert MD, RVT, [facility], [address] [place] [address], [place], [address] . tel:[phone] Offic/outpt E&m Estab 5 Min Trial - [facility], [address] [place] [address] [address] 1000[place]ie [place], [id number], [place] tel:[phone] CVR - [place] [facility] Localized edemaCramp and spasmRestless legs syndromeVenou s insufficiency (chronic) (peripheral)P ruritus, unspecified 4 Kyaw Dos Santos. [address] [place] [address], [place], [id number], [place]. tel:[phone] Referring Provider: Margie Paz MD [facility], [address] [place] [address], [facility] [address] - [facility] Physician [facility], [place], [address]. tel:[phone] [facility], [address] [place] [address] [address] 1000[place]ennie [place], [id number], [place] tel:[phone] CVR - [facility] Chronic venous hypertension (idiopathic) with other complications of bilateral lower extremity 3 Del MIRZA FACS RVT [facility] Parisi. [address] [place] [address], [place], [id number], [place]. tel:[phone] Referring Provider: Hanny Mathis MD FACS RVT [facility], [address] [place] [address], [place], [address]. tel:[phone] Office/Oupt E&M New Pt 45 Mins [facility], [address] [place] [address] [address] 1000[place]ennie [place], [id number], [place] tel:[phone] CVR - [place] [facility] Localized edemaCramp and spasmRestless legs syndromeChron ic venous hypertension (idiopathic) with other complications of bilateral lower extremityPrur itus, unspecified Del MIRZA FACS T MARISSA Parisi. [address], [address], [place], [address], . tel:[phone] Referring Provider: Hanny ANN, [address], [place], [address]. tel:[phone] Family History Family Member Type Diagnosis Age At Onset No Information Payers Payer name Insurance type Covered libertarian ID Authornovamora keirydalton(s) Medical Assistance [facility] [id number] [facility] [id number] Social History Type Description Quantity Date [...]
== END 2024-05-14 14:51 | disposition home or self-care (01) ==
PROVIDERS: PCP Family Medicine; Visit Provider Nurse Practitioner Family
DX: M47.26 Other spondylosis with radiculopathy, lumbar region (principal); M54.9 Dorsalgia, unspecified; M54.30 Sciatica, unspecified side; M25.562 Pain in left knee; G89.29 Other chronic pain; M54.51 Vertebrogenic low back pain
CPT/HCPCS: 99204; G2211

== ENCOUNTER → 2024-05-14 14:09 | Outpatient (BNVA) | payer OTHER, SELFPAY | PROVIDERS: PCP Family Medicine; Visit Provider Nurse Practitioner Family | DX: M47.26 Other spondylosis with radiculopathy, lumbar region (principal); M54.9 Dorsalgia, unspecified; M54.30 Sciatica, unspecified side; M54.16 Radiculopathy, lumbar region; M25.562 Pain in left knee; M54.51 Vertebrogenic low back pain; G89.29 Other chronic pain | CPT/HCPCS: 99202 ==

== ENCOUNTER → 2024-06-18 16:22 | Outpatient (BNV) | payer OTHER, SELFPAY | PROVIDERS: PCP Family Medicine; Visit Provider Radiology Diagnostic Radiology | DX: M47.26 Other spondylosis with radiculopathy, lumbar region (principal) | CPT/HCPCS: 72148 ==

== ENCOUNTER 2024-06-18 16:29 | Outpatient (REF) | payer OTHER, SELFPAY ==
--- NOTE | ~2024-06-18 | MR_ITS ---
EXAMINATION: MR LUMBAR SPINE WITHOUT CONTRAST CLINICAL INFORMATION: Spondylosis with radiculopathy. COMPARISON: Lumbar spine x-ray 01/02/2016 TECHNIQUE: MRI of the lumbar spine was obtained using routine sequences without contrast. FINDINGS: There is normal lumbar lordosis. The vertebral heights and alignment is normal. The T12-L1, L1-2, L2-3 disc levels are unremarkable. At L3-4 disc level there is minimal disc bulge flattening slightly eccentric to the right with mild flattening of ventral thecal sac without spinal canal stenosis. There is mild narrowing of right lateral recess and proximal neural foramina. The left neural foramina appear patent. At L4-5 disc level there is no significant disc bulge, herniation or spinal canal stenosis. The neural foramina are patent in spite of mild facet joint arthropathy and minimal hypertrophy. At L5-S1 disc level there is no significant disc bulge, herniation or spinal canal stenosis. The neural foramina are patent bilaterally. Incidentally noted is a central disc herniation at T11-T12 disc level with minimal AP canal narrowing. Conus medullaris terminates at T12-L1 disc level and appears normal in morphology. MR/MR lumbar spine wo con IMPRESSION: Mild disc bulge eccentric to the right resulting in moderate right inferolateral recess and neural foraminal narrowing at the L3-4 disc level. Incidental finding of central disc herniation at T11-12 disc level without spinal canal stenosis. Electronically signed by: Abner Driscoll MD 06/19/2024 08:05 AM [facility]
--- OUTSIDE RECORDS SUMMARY | 2024-06-18 18:12 | XMS_ITS | Continuity of Care Document ---
Author Organization [facility] Address [address] [place] [address] Phone Care Team Providers Care Truck Greaser Name Role Phone Keon MIRZA, RVT, MARISSA, [...] Laser, 1st Vein Endovenous Laser, 1st Vein Ultrason Guidan Needle Bx-rad 4 Inj Scleros Solut; Mx Veins 1 4 Offic/outpt E&m Estab 5 Min Trial - Tele medicine Duplex Scan-extrem Veins; Comp 23 Office/Oupt E&M New Pt 45 Mins Advance Directives Directive Yes / No Effective Date File Name No Information Encounters Encounter Description Practice Location Reason(s) For Visit Diagnoses Date Provider Providers Copied on Encounter Office/Outpt E&M Established 10 Mins- CT & [place] [facility], [address] [place] [address] Dr Porter [address] Bennie Hassan [place], [id number], [place] tel:[phone] [place] Pruritus, unspecifiedCh ronic venous hypertension (idiopathic) with other complications of bilateral lower extremityRest less legs syndrome 0 4 Keon MIRZA RVT, RPVI Robert. [address] [place] [address], [place], [id number], [place]. tel:[phone] [place] [facility], [address] [place] [address] Dr [address]ie [place], [id number], [place] tel:[phone] [place] Pain in right legPain in left leg 4 Keon MIRZA RVT, RPVI Robert. [address] [place] [address], [place], [id number], [place]. tel:[phone] Referring Provider: Placido Herbert MD, RVT, RPVI, [address] [place] [address], [place], [address] . tel:[phone] [facility], [address] [place] [address] [address] Bennie Hassan [place], [id number], [place] tel:[phone] [place] Encounter for follow-up examination after completed treatment for conditions other than malignant neoplasmChron ic venous hypertension (idiopathic) with other complications of left lower extremity 0 4 Keon MIRZA RVT, RPVI Robert. [address] [place] [address], [place], [id number], [place]. tel:[phone] Referring Provider: Placido Herbert MD, RVT, MARISSA, [address] [place] [address], [place], [address] . tel:[phone] [facility], [address] [place] [address] Dr [address] Bennie Hassan [place], [id number], [place] tel:[phone] [place] Chronic venous hypertension (idiopathic) with inflammation of left lower extremity Apr-0 4 Keon MIRZA RVT, RPVI Robert. [address] [place] [address], Suite [facility] [place], [id number], [place]. tel:[phone] [facility], [address] [place] [address] Dr [address] Bennie Hassan MD, [id number], [place] tel:[phone] [place] - [place] Chronic venous hypertension (idiopathic) with inflammation of left lower extremity Apr-0 4 Keon MIRZA RVT, RPVI Robert. [address] [place] [address], Suite [facility] [place], [id number], [place]. tel:[phone] Referring Provider: Placido Herbert MD, RVT, MARISSA, [address] [place] [address] Suite [facility], [place], [address] . tel:[phone] [facility], [address] [place] [address] Dr [address] Bennie Hassan [place], [id number], [place] tel:[phone] [place] - [place] Encounter for follow-up examination after completed treatment for conditions other than malignant nePain in right leg 4 Keon MIRZA RVT, RPVI Robert. [address] [place] [address], [facility] [place], [id number], [place]. tel:[phone] Referring Provider: Placido Herbert MD, RVT, MARISSA, [address] [place] [address], [place], [address] . tel:[phone] [facility], [address] [place] [address] Dr [address] 1000[place]ennie [place], [id number], [place] tel:[phone] CVR - [facility] Varicose veins of right lower extremity with other complications 4 Keon MIRZA RVT, RPVI Robert. [address] [place] [address], [place] [address], [facility] [place], [id number], [place]. tel:[phone] [facility], [address] [place] [address] Dr [address] Bennie Hassan [place], [id number], [place] tel:[phone] [place] Chronic venous hypertension (idiopathic) with inflammation of right lower extremity 4 Keon MIRZA, RVT, VI Placido. [address] [place] [address], [place], [id number], [place]. tel:[phone] Referring Provider: Placido Herbert MD, RVT, [facility], [address] [place] [address], [place], [address] . tel:[phone] Offic/outpt E&m Estab 5 Min Trial - Tele[facility]icine [facility], [address] [place] [address] Dr [address] 1000[place]ennie [place], [id number], [place] tel:[phone] [place] Localized edemaCramp and spasmRestless legs syndromeVenou s insufficiency (chronic) (peripheral)P ruritus, unspecified 4 Kyaw Dos Santos. [address] [place] [address], [place], [id number], [place]. tel:[phone] Referring Provider: Margie Paz MD [facility] [address] [place] [address], [facility] [address] - [facility] Physician [facility], [place], [address]. tel:[phone] [facility], [address] [place] [address] [address] 1000[place]ennie [place], [id number], [place] tel:[phone] CVR - [facility] Chronic venous hypertension (idiopathic) with other complications of bilateral lower extremity 3 Dle MIRZA FACS RVT [facility] Parisi. [address] [place] [address], [place], [address], [place]. tel:[phone] Referring Provider: Hanny Mathis MD FACS RVT [facility], [address] [place] [address], [place], [address]. tel:[phone] Office/Oupt E&M New Pt 45 Mins [facility], [address] [place] [address] [address] 1000[place]ennie [place], [id number], [place] tel:[phone] [place] - [place] Localized edemaCramp and spasmRestless legs syndromeChron ic venous hypertension (idiopathic) with other complications of bilateral lower extremityPrur itus, unspecified Del MIRZA FACS T MARISSA Parisi. [address], [address], [place], [address], . tel:[phone] Referring Provider: Hanny ANN, [address], [place], [address]. tel:[phone] Family History Family Member Type Diagnosis Age At Onset No Information Payers Payer name Insurance type Covered green party ID Authornovamora keirydalton(s) Medical Assistance [facility] [id number] [facility] [id number] Social History Type Description Quantity Date [...] Localized edema Assessments Type Assessment Date assessment Restless legs syndrome assessment Chronic venous hyper tension (idiopathic) with other complications of bilateral lower extremity assessment Pruritus, unspecified Patient Care Teams Name Effective Dates (start - stop) Status Members No Information
== END 2024-06-18 16:30 | disposition home or self-care (01) ==
LOC: HO.MRI 16:29
PROVIDERS: PCP Family Medicine; Visit Provider Nurse Practitioner Family
DX: M47.26 Other spondylosis with radiculopathy, lumbar region (principal); M54.9 Dorsalgia, unspecified; M54.30 Sciatica, unspecified side; M54.51 Vertebrogenic low back pain
CPT/HCPCS: 72148

== ENCOUNTER 2024-07-04 08:31 | Outpatient (AMB) | payer OTHER, SELFPAY ==
--- NOTE | 2024-07-04 08:32 | A.OFFVIS_ITS ---
Vital Signs 3 07/04/24 08:34 BP 112/74 Blood Pressure Location Lt brachial Position Sitting Pulse 84 Pulse Oximetry (%) 97 Oxygen Delivery Method Room Air Intake Visit Reasons: MRI Results Geospatial Image Analyst Required: No Allergies pineapple Allergy (Intermediate, Verified 07/04/24 08:36) Anaphylaxis SEASONAL ALLERGIES Allergy (Intermediate, Uncoded 07/04/24 08:36) RUNNY NOSE WATERY ITCHY EYES Medication List - Last Reconciled 07/04/24 by Guerda Hernandez LPN diclofenac sodium 75 mg PO BID PRN fluticasone furoate 100 mcg/actuation (Arnuity Ellipta) 1 inh inhalation DAILY gabapentin 300 mg PO BEDTIME 30 days hydroxyzine HCl 25 mg PO BEDTIME PRN ipratropium-albuterol 20-100 mcg/actuation (Combivent Respimat) 1 puff inhalation QID 30 days lidocaine 5% leave on most painful area for up to 12 hrs topical 30 days multivitamin (Multiple Vitamins tablet) 1 tab PO DAILY pantoprazole 20 mg PO DAILY paroxetine HCl (Paxil) 10 mg PO DAILY HPI Comments Details: Patient presents today for follow up to discuss recent lumbar spine MRI results. She continues to endorse lower back pain with bilateral radiculopathy and numbness and tingling in her toes, worse in big toes bilaterally. Patient also reports she lost her balance last week and fell. Reports increased back and left knee pain and occasional right knee pain. She reports axial low back pain has been worse than radicular pain. She is interested to proceed with diagnostic lumbar medial branch blocks to confirm axial low back pain. Denies any recent cough, cold, infection, fever, foot drop, bladder or bowel dysfunction, saddle anesthesia or any other significant changes in medical history since last office visit. [facility] old records were reviewed and noted for Caudal JAMES injections on 04/08/2015 and 06/17/[address] Foss for CLBP and LE pain with good pain relief. PRIOR: Patient is a pleasant 43 years old female with history of lower back pain, left shoulder, bilateral breast reduction with implants and abdominoplasty (07/2023), lumbar degenerative disc disease with facet arthropathy at L5-S1, presents today for initial evaluation of lower back pain with radicular symptoms and left knee pain. Knee pain has been present for 6 months, back pain for over 10 years. Denies any recent trauma, injury or falls. Reports mechanical fall downstairs over 10 years which worsened back pain. She has been seen at [facility] and received injections in 2016 with good relief. Patient also went to [facility] in [place] few months ago and completed lumbar spine and knee xray but had no injections. She is currently in physical therapy at [facility]. Back pain is axial and also significantly increases with flexing or bending forward with reproduction of pain on right side. She also reports anterior left knee pain with walking, climbing stairs or cold weather. 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 Denies any fever or chills, abdominal or groin pain, weakness, bladder or bowel dysfunction or saddle anesthesia. Oswestry Low Back Disability Score=21 (moderate disability) Location: Lower back radiates down bilateral legs; left knee worse Duration: Chronic pain for >10 years ago, h/o mechanical fall downstairs Characteristics of symptom or complaint: Aching, numbness, sharp, shooting, radiating, tingling, burning, sore Aggravating or associated factors: Prolonged standing, ADLs, movements, walking, climbing stairs, cold weather Relieving factors: Ibuprofen, laying flat, heating pad, Tylenol, rest, activity modifications Treatment: PT at [facility], lumbar and knee xrays; h/o injections at [facility] Medical History Acid reflux Sinusitis Lower back pain Asthma Surgical History Hx of abdominoplasty Hx of breast implant Hx of laparoscopic gastric banding (~2005) History of tubal ligation (~2003) Family History Mother Schizophrenia Mental health disorder Asthma Father Asthma Sister Substance abuse Social History Household Members: Family Both parents involved: No Caregiver staying overnight: No Housing: House Are you a primary care coordination manager to a significant other at home: No Do you presently have visiting nurse or other home services: No 75 years or older and lives alone: No Alcohol intake: current Alcohol type: beer and other Comment: Fridays- 3 drinks or 5 beers Patient Tobacco Use Status: Former Tobacco user e-Cigarette/Vaping Use: Never Used service: No Current occupational status: employed 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 Alert and oriented. Mood and affect appropriate. Follows and participates in conversation appropriately. Respiratory effort is unlabored. No cough. Able to transition from sit to stand unassisted. Ambulates with bilaterally normal heel strike and toe off, increased pain on the left. General: Yes no CVA tenderness Back/Spine/Pelvis Other: Patient is able to walk and stand on heels and tip toes with mild difficulty on the left otherwise demonstrating good motor tone. No limping. Lumbar flexion reproduces moderate-severe pain, flexion reproduces mild to moderate pain. Demonstrates 5/5 strength of quadriceps bilaterally as well as flexion/dorsiflexion of bilateral feet against resistance. 2+ pedal pulses bilaterally. Straight leg rise with dorsiflexion negative bilaterally. +2 patellar and achilles reflexes bilaterally. Facet loading test positive bilaterally. Maris sign positive bilateraly. David?s, Pelvic compression and Stinchfield tests are negative bilaterally. No groin pain with I/E hip rotations. Valsalva maneuver negative. Back: no CVA tenderness Cervical Spine: cervical ROM normal, cervical muscular tenderness, No Cervical spine tenderness and No step off deformity Thoracic/Lumbar Spine: thoracic and lumbar spine normal to inspection, No Thoracic/lumbar spine scar(s), Lasegue's sign negative, straight leg raise negative bilaterally, pain with thoraco-lumbar ROM, paraspinal muscle tenderness, thoraco-lumbar ROM limited, No thoracic spinal tenderness and lumbar spinal tenderness (L4-S1) Pelvis: no buttock tenderness and no sciatic notch tenderness Sacroiliac joints: bilaterally tender to palpation Extrem General: Yes capillary refill normal, Yes no clubbing, cyanosis or edema and Yes no calf tenderness Left lower extremity: knee (Limited ROM due to pain) Details: tenderness Location: of the patella, of the medial joint line and of the lateral joint line and crepitus; no swelling, no abrasions and no unusual warmth Results Reviewed Results Reviewed: MR LUMBAR SPINE WITHOUT CONTRAST 06/18/24 CLINICAL INFORMATION: Spondylosis with radiculopathy. COMPARISON: Lumbar spine x-ray 01/02/2016 FINDINGS: There is normal lumbar lordosis. The vertebral heights and alignment is normal. The T12-L1, L1-2, L2-3 disc levels are unremarkable. At L3-4 disc level there is minimal disc bulge flattening slightly eccentric to the right with mild flattening of ventral thecal sac without spinal canal stenosis. There is mild narrowing of right lateral recess and proximal neural foramina. The left neural foramina appear patent. At L4-5 disc level there is no significant disc bulge, herniation or spinal canal stenosis. The neural foramina are patent in spite of mild facet joint arthropathy and minimal hypertrophy. At L5-S1 disc level there is no significant disc bulge, herniation or spinal canal stenosis. The neural foramina are patent bilaterally. Incidentally noted is a central disc herniation at T11-T12 disc level with minimal AP canal narrowing. Conus medullaris terminates at T12-L1 disc level and appears normal in morphology. IMPRESSION: Mild disc bulge eccentric to the right resulting in moderate right inferolateral recess and neural foraminal narrowing at the L3-4 disc level. Incidental finding of central disc herniation at T11-12 disc level without spinal canal stenosis. Assessment & Plan Assessment & Plan (1) Degenerative joint disease (DJD) of lumbar spine: Code(s): M47.816 - Spondylosis without myelopathy or radiculopathy, lumbar region Category: Medical Qualifiers: Spinal osteoarthritis complication: with radiculopathy Qualified Code(s): M47.26 - Other spondylosis with radiculopathy, lumbar region (2) Back pain with sciatica: Code(s): M54.9 - Dorsalgia, unspecified; M54.30 - Sciatica, unspecified side Category: Medical (3) Lumbar radiculopathy: Code(s): M54.16 - Radiculopathy, lumbar region Category: Medical (4) Left knee pain: Code(s): M25.562 - Pain in left knee Category: Medical Qualifiers: Chronicity: chronic Qualified Code(s): M25.562 - Pain in left knee; G89.29 - Other chronic pain (5) Lumbar spondylosis: Code(s): M47.816 - Spondylosis without myelopathy or radiculopathy, lumbar region Category: Medical Plan MRI of the lumbar spine and old records from [facility] were reviewed with patient today. Back pain has been resistant to conservative treatments, including PT, NSAIDs, oral and topical medications, heat therapy and activity modifications. Schedule Bilateral Diagnostic L3-L4-DR L5 MBB with local and fluoroscopy for axial low back pain. Expectations, risks and benefits were reviewed. Patient is aware she will be contacted to schedule this procedure. If she has significant relief from the diagnostic blocks for his axial low back pain, will consider either therapeutic injections, Sprint PNS or RFA depending on her preference. For ongoing left knee pain, will proceed with MRI. Most recent left knee xray in April 2024 is noted above. All questions and concerns have been answered and patient agreed with the treatment plan. Follow up after injections/MRI review and sooner as needed. Orders: Orders 2 XR knee LT 3V Today G89.29 - Other chronic pain, M25.562 - Pain in left knee, Z91.81 - History of falling Coding Level of Care Code Est Pt Level 4 (81090) Complex EM visit Add On G2211 Diagnoses Osteoarthritis of spine with radiculopathy, lumbar region M47.26 Spinal osteoarthritis complication: with radiculopathy Back pain with sciatica M54.9; M54.30 Lumbar radiculopathy M54.16 Chronic pain of left knee M25.562; G89.29 Chronicity: chronic Lumbar spondylosis M47.816
[2024-07-04 08:34] VITALS: BP 112/74; PULSE 84; O2SAT 97
== END 2024-07-04 09:07 | disposition home or self-care (01) ==
PROVIDERS: PCP Family Medicine; Visit Provider Nurse Practitioner Family
DX: M47.26 Other spondylosis with radiculopathy, lumbar region (principal); M54.9 Dorsalgia, unspecified; M54.30 Sciatica, unspecified side; M25.562 Pain in left knee; G89.29 Other chronic pain; M47.816 Spondylosis without myelopathy or radiculopathy, lumbar region
CPT/HCPCS: 99214; G2211

== ENCOUNTER → 2024-07-04 08:31 | Outpatient (BNVA) | payer OTHER, SELFPAY | PROVIDERS: PCP Family Medicine; Visit Provider Nurse Practitioner Family | DX: M47.26 Other spondylosis with radiculopathy, lumbar region (principal); M54.30 Sciatica, unspecified side; M25.562 Pain in left knee; G89.29 Other chronic pain; Z71.2 Person consulting for explanation of examination or test findings | CPT/HCPCS: 99212 ==

== ENCOUNTER → 2024-07-09 18:17 | Outpatient (BNV) | payer OTHER, SELFPAY | PROVIDERS: PCP Family Medicine; Visit Provider Radiology Diagnostic Radiology | DX: M23.92 Unspecified internal derangement of left knee (principal); M17.12 Unilateral primary osteoarthritis, left knee | CPT/HCPCS: 73721 ==

== ENCOUNTER 2024-08-22 13:03 | Outpatient (AMB) | payer OTHER, SELFPAY ==
--- NOTE | 2024-08-22 13:12 | MHC.PC.OV ---
Vital Signs 08/22/24 13:15 Height 5 ft 3 in Weight 179 lb 2 oz BMI 31.7 BP 102/66 Blood Pressure Location Rt brachial Position Sitting Respiration 12 Pulse 69 Pulse Source Pulse Oximeter Temp 98.2 F Temp Source Oral Pulse Oximetry (%) 97 Oxygen Delivery Method Room Air Intake Visit Reasons: Back pain Intake Note: follow up on meds Inside Outside Sales Representative Required: No Allergies pineapple Allergy (Intermediate, Verified 08/22/24 13:31) Anaphylaxis diclofenac Adverse Reaction (Mild, Verified 08/22/24 13:33) Swelling SEASONAL ALLERGIES Allergy (Intermediate, Uncoded 08/22/24 13:31) RUNNY NOSE WATERY ITCHY EYES Medication List - Last Reconciled 08/22/24 by MARCELINO Kwon- diclofenac sodium 75 mg PO BID PRN fluticasone furoate 100 mcg/actuation (Arnuity Ellipta) 1 inh inhalation DAILY gabapentin 300 mg PO BEDTIME 30 days hydroxyzine HCl 25 mg PO BEDTIME PRN ipratropium-albuterol 20-100 mcg/actuation (Combivent Respimat) 1 puff inhalation QID 30 days lidocaine 5% leave on most painful area for up to 12 hrs topical 30 days multivitamin (Multiple Vitamins tablet) 1 tab PO DAILY pantoprazole 20 mg PO DAILY paroxetine HCl (Paxil) 10 mg PO DAILY Tobacco use date assessed: 08/22/24 Dental Screening Dental Screen Date: 08/22/24 Did you have a dental visit in the last 12 months?: Yes Did you have a dental problem in the last 6 months where you did not have access to dental care?: No Was dental information given to patient?: Patient has dentist HPI HPI Comments History of Present Illness Details History of Present Illness - The patient is a 43-year-old female presenting with complaints of chronic low back pain and associated symptoms. - The back pain follows a severe pattern, becoming debilitating during colder weather and the premenstrual period. - Initial onset and progression have witnessed significant interference in her daily routine, exacerbating symptoms of fatigue and irritability. - Self-managed with ibuprofen 800mg for relief in both back and knee pain, having tried diclofenac previously, which led to edema and was subsequently discontinued. - There is fatigue attributed gabapentin, limiting functional capacity during daytime. Stopped taking. This was RX by [facility] Pain mgmt. Consult note and denial reviewed. - The patient had undergone physical therapy, which did not help; Injections were recommended but denied by insurance. She has knee pain and was referred to orthopedics. Ibu helps w/ this pain. - Continued functional limitations due to numbness in legs, pain, and irritation affecting quality of life and daily activities. Physical Exam General: Well developed, well nourished, in no acute distress. Appears stated age. Head: Normocephalic, atraumatic. Eyes: Pupils are equal, round and reactive to light and accommodation. Neck: FROM Pain over lumbar spine, + lordosis, no parapsinal tenderness, SLR + bilat L>R, neurovasc intact Extremities: No clubbing, cyanosis noted. Discussion Notes I discussed with the patient the challenges surrounding her chronic low back pain and reviewed her current medication strategy. We talked about the adverse effects she experienced with diclofenac, leading to a categorization of it as an allergy due to edema. The use of gabapentin was also reviewed, acknowledging her sedation concerns, and we explored a reduction in dosage - declined, would not like to restart it.. We addressed the insurance complications influencing treatment decisions, emphasizing the importance of filing an appeal within the designated timeframe of 60 days post-denial. I provided her with the necessary documentation and contact information for appealing the decision. I encouraged lifestyle measures to maintain her health and prevent aggravation of her symptoms. Follow-up is scheduled to review progress and adjust treatment plans accordingly. Assessment and Plan 1. Chronic Low Back Pain: Managed with ibuprofen, noting allergic reaction to diclofenac and reduced gabapentin dosage to manage fatigue. Encouraged appeal for denied injection and adherence to physical therapy. Ibu 800mg new RX today 2. Knee Pain: Symptomatic relief is ongoing with ibuprofen, and orthopedic follow-up planned to address continuing issues. 3. Adverse Reaction to Diclofenac: Documented as an allergy and discontinued use due to associated edema. 4. Fatigue: d/t gabapentin - d/c 5. Peripheral Edema: Resolved on cessation of diclofenac with no further treatment indicated. Patient Instructions - start ibuprofen 800mg as needed for pain relief. - Avoid use of diclofenac; treat as an allergy. - Contact insurance to file an appeal regarding the denied injection; note the 60-day limit. - Utilize the provided contact details for the appeal process. - Follow up with orthopedics as scheduled for further knee assessment. - Monitor for symptoms of excessive fatigue and adjust medication intake as discussed.. - Be aware of symptom changes and report any concerning developments. Consent Patient was informed and verbally consented to the use of an ambient scribe for clinic note documentation during this visit. Total time spent caring for the patient today was 30 minutes. This includes time spent before the visit reviewing the chart, time spent during the visit, and time spent after the visit on documentation, reviewing laboratory results, diagnostic imaging, medications, performing a medically necessary evaluation, counseling on diagnoses, care coordination, ordering appropriate tests, ordering appropriate medications, review of tests performed by other providers, reporting test results with the patient, communication with other healthcare providers. [facility] Medical History (Updated 08/22/24 @ 07:47 by MARCELINO Kwon-NICKIE) Acid reflux Asthma Lower back pain Sinusitis Surgical History (Updated 08/22/24 @ 07:47 by GABRIEL Kwon) History of Papanicolaou smear of cervix (~2023) History of tubal ligation (~2003) Hx of abdominoplasty Hx of breast implant Hx of laparoscopic gastric banding (~2005) Family History Mother Schizophrenia Mental health disorder Asthma Father Asthma Sister Substance abuse Social History Household Members: Family Both parents involved: No Caregiver staying overnight: No Housing: House Are you a primary career technical education teacher to a significant other at home: No Do you presently have visiting nurse or other home services: No 75 years or older and lives alone: No Alcohol intake: current Alcohol type: beer and other Comment: Fridays- 3 drinks or 5 beers Patient Tobacco Use Status: Former Tobacco user e-Cigarette/Vaping Use: Never Used service: No Current occupational status: employed 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 1. Little interest or pleasure in doing things: not at all 2. Feeling down, depressed, or hopeless: not at all 3. Trouble falling or staying asleep, or sleeping too much: not at all 4. Feeling tired or having little energy: not at all 5. Poor appetite or overeating: not at all 6. Feeling bad about yourself - or that you are a failure or have let yourself or your family down: not at all 7. Trouble concentrating on things, such as reading the newspaper or watching television: not at all 8. Moving or speaking so slowly that other people could have noticed. Or the opposite - being so fidgety or restless that you have been moving around a lot more than usual: not at all 9. Thoughts that you would be better off or of hurting yourself in some way: not at all Total score: 0 78685 - PHQ-9 Billing: Yes Source: Developed by Drs. Placido Dietrich, Ольга Galaviz, Kavon Mariee and colleagues, with an educational cristofer from [employer]. Thrive Questionnaire Date Thrive assessed: 08/22/24 I am a: Patient What is your living situation today?: I have a steady place to live Within the past 12 months, did the food you bought not last and you didn't have the money to get more?: Never true Within the past 12 months, did you worry whether your food would run out before you got money to buy more?: Never true Do you have trouble paying for medicines?: No Do you have trouble getting transportation to medical appointments?: No Do you have trouble paying your heating and electricity bill?: No Do you have trouble taking care of your child, family member or friend?: No Do you have trouble with day-to-day activities such as bathing, preparing meals, shopping, managing finances, etc.?: No Are you currently unemployed and looking for a job?: Yes Are you interested in more education?: No Please select the resources that you would like help with: None Currently or been in a relationship where the following occur: No concerns reported THRIVE Score: 0 LATONYA-7 AMB Questionnaire LATONYA-7 Date LATONYA - 7 assessed: 08/22/24 Feeling nervous, anxious, or on edge: 0 = Not at all Not being able to stop or control worryin = Not at all Worrying too much about different things: 0 = Not at all Trouble relaxin = Not at all Being so restless that it is hard to sit still: 0 = Not at all Becoming easily annoyed or irritable: 0 = Not at all Feeling afraid as if something awful might happen: 0 = Not at all Total LATONYA-7 score (0-4 normal; 5-9 mild; 10-14 moderate; 15-21 severe): 0 Source: Developed by Drs. Placido Dietrich, Ольга Galaviz, Kavon Mariee and colleagues, with an educational cristofer from [employer]. LATONYA-7 Assessment Billing LATONYA-7 Assessment Tool: LATONYA-7 Assessment 96099 Physical exam (Primary Care) Vital Signs: Last Vital Signs Temp 98.2 F 08/22/24 13:15 Pulse 69 08/22/24 13:15 Resp 12 08/22/24 13:15 BP 102/66 08/22/24 13:15 Pulse Ox 97 08/22/24 13:15 Oxygen Delivery Method Room Air 08/22/24 13:15 BMI result Body Mass Index 31.7 Tobacco/Smoking Status: Tobacco use Status Tobacco use date assessed 08/22/24 08/22/24 13:16 Patient Tobacco Use Status Former Tobacco user 08/22/24 13:16 e-Cigarette/Vaping Use Never Used 08/22/24 13:16 PHQ-9: PHQ-9 Score PHQ-9: Total score 0 08/22/24 15:05 Thrive Assessment: Date of Thrive Assessment Date Thrive assessed 08/22/24 08/22/24 13:16 Currently or been in a relationship where the following occur: No concerns reported Coding Level of Care Code Est Pt Level 4 (17994) Complex EM visit Add On G2211 Diagnoses Back pain with sciatica M54.9; M54.30 Chondromalacia of left knee M94.262 Osteoarthritis of spine with radiculopathy, lumbar region M47.26 Spinal osteoarthritis complication: with radiculopathy Lumbar radiculopathy M54.16 Lumbar spondylosis M47.816 Additional Codes LATONYA-7 Assessment Billing - LATONYA-7 Assessment Tool: LATONYA-7 Assessment 13604 ([id number]) PHQ-9 - 83303 - PHQ-9 Billing: Yes ([id number]) Assessment & Plan Assessment & Plan (1) Back pain with sciatica: Code(s): M54.9 - Dorsalgia, unspecified; M54.30 - Sciatica, unspecified side Category: Medical (2) Chondromalacia of left knee: Code(s): M94.262 - Chondromalacia, left knee Category: Medical (3) Degenerative joint disease (DJD) of lumbar spine: Code(s): M47.816 - Spondylosis without myelopathy or radiculopathy, lumbar region Category: Medical Qualifiers: Spinal osteoarthritis complication: with radiculopathy Qualified Code(s): M47.26 - Other spondylosis with radiculopathy, lumbar region (4) Lumbar radiculopathy: Code(s): M54.16 - Radiculopathy, lumbar region Category: Medical (5) Lumbar spondylosis: Code(s): M47.816 - Spondylosis without myelopathy or radiculopathy, lumbar region Category: Medical Plan . Medications: New ibuprofen 800 mg PO Q8H PRN 90 tabs 2RF pain Discontinued gabapentin Discontinued Reason: Patient no longer taking 300 mg PO BEDTIME 30 days 30 caps 0RF pain M47.26 - Other spondylosis with radiculopathy, lumbar region, M54.16 - Radiculopathy, lumbar region, M54.30 - Sciatica, unspecified side, M54.9 - Dorsalgia, unspecified diclofenac sodium Discontinued Reason: Patient Completed Course 75 mg PO BID PRN 60 tabs 0RF for pain M47.26 - Other spondylosis with radiculopathy, lumbar region, M54.16 - Radiculopathy, lumbar region, M54.30 - Sciatica, unspecified side, M54.9 - Dorsalgia, unspecified
[2024-08-22 13:15] VITALS: BP 102/66; PULSE 69; RESP 12; TEMP 36.8; O2SAT 97; BMI 31.7
== END 2024-08-22 13:44 | disposition home or self-care (01) ==
LOC: HO.HMCFM 13:04
PROVIDERS: PCP Nurse Practitioner Family; Visit Provider Nurse Practitioner Family
DX: M54.9 Dorsalgia, unspecified (principal); M54.30 Sciatica, unspecified side; M94.262 Chondromalacia, left knee; M47.26 Other spondylosis with radiculopathy, lumbar region; M54.16 Radiculopathy, lumbar region

== ENCOUNTER → 2024-08-22 13:03 | Outpatient (BNVA) | payer OTHER, SELFPAY | PROVIDERS: PCP Nurse Practitioner Family; Visit Provider Nurse Practitioner Family | DX: M54.9 Dorsalgia, unspecified (principal); M54.30 Sciatica, unspecified side; M94.262 Chondromalacia, left knee; M47.26 Other spondylosis with radiculopathy, lumbar region; M47.816 Spondylosis without myelopathy or radiculopathy, lumbar region | CPT/HCPCS: 96127; 99212 ==

== ENCOUNTER 2024-09-25 08:11 | Outpatient (REF) | payer OTHER, SELFPAY ==
--- NOTE | ~2024-09-25 | XR_ITS ---
EXAMINATION: XR KNEE, LEFT CLINICAL INFORMATION: M25.569 - Pain in unspecified knee COMPARISON: MRI left knee 07/09/2024. TECHNIQUE: AP view bilateral knees standing, lateral and patellofemoral views left knee. FINDINGS: Right Knee: No fracture or dislocation. Minimal medial compartment joint space narrowing. Normal soft tissues. Left Knee: No fracture, dislocation, or suspicious bone lesion. Minimal medial greater than lateral compartment joint space narrowing. Normal knee and patellar alignment. No definite joint effusion. Normal soft tissues. XR/XR knee LT 3V IMPRESSION: 1. Minimal osteoarthritis left knee. Electronically signed by: Levon Galeas MD 09/27/2024 10:19 AM EDT
--- OUTSIDE RECORDS SUMMARY | 2024-09-26 08:25 | XMS_ITS | Clinical Summary ---
Author Organization [facility] Address [address] [place] [address] Care Team Providers Care Flooring Professional Name Role Phone Eimly Syed MD Primary Care Provider Social History Tobacco Use Types Packs/Day Years [...] age to complete this topic Care Teams Flooring Professional Relationship Specialty Start Date End Date Emily Syed MD [address] [address] PCP - General Internal Medicine 05/09/19
--- OUTSIDE RECORDS SUMMARY | 2024-09-26 08:25 | XMS_ITS | Continuity of Care Document ---
Author Organization [facility] Address [address] MD [place] [address] Phone Care Team Providers Care Clinical Support Nurse Name Role Phone Keon MIRZA, RVT, MARISSA, [...] E&M Established 10 Mins- CT & [place] [facility], [address] [place] [address] Dr [address] Bennie Hassan MD, [id number], [place] tel:[phone] CVR - [place] Pruritus, unspecifiedCh ronic venous hypertension (idiopathic) with other complications of bilateral lower extremityRest less legs syndrome 0 4 Keon MIRZA RVT, RPVI Robert. [address] [place] [address], [place], [id number], [place]. tel:[phone] [place] [facility], [address] [place] [address] Dr [address] 1000Bennie [place], [id number], [place] tel:[phone] CVR - [place] Pain in right legPain in left leg 4 Keon MIRZA RVT, RPVI Robert. [address] [place] [address], [place], [id number], [place]. tel:[phone] Referring Provider: Placido Herbert MD, RVT, RPVI, [address] [place] [address], [place], [address] . tel:[phone] [facility], [address] [place] [address] Dr [address] Bennie Hassan MD, [id number], [place] tel:[phone] [place] - [place] Encounter for follow-up examination after completed treatment for conditions other than malignant neoplasmChron ic venous hypertension (idiopathic) with other complications of left lower extremity 0 4 Keon MIRZA RVT, RPVI Robert. [address] [place] [address], [place], [id number], [place]. tel:[phone] Referring Provider: Placido Herbert MD, RVT, MARISSA, [address] [place] [address], [place], [address] . tel:[phone] [facility], [address] [place] [address] Dr [address] Bennie Hassan MD, [id number], [place] tel:[phone] CVR - [place] Chronic venous hypertension (idiopathic) with inflammation of left lower extremity Apr-0 4 Keon MIRZA RVT, RPVI Robert. [address] [place] [address], Suite [facility] [place], [id number], [place]. tel:[phone] [facility], [address] [place] [address] Dr [address] Bennie Hassan MD, [id number], [place] tel:[phone] CVR - [place] Chronic venous hypertension (idiopathic) with inflammation of left lower extremity Apr-0 4 Keon MIRZA RVT, RPVI Robert. [address] [place] [address], Suite [facility] [place], [id number], [place]. tel:[phone] Referring Provider: Placido Herbert MD, RVT, MARISSA, [address] [place] [address] Suite [facility] [place], [address] . tel:[phone] [facility], [address] [place] [address] Dr Porter [address] Bennie Hassan MD, [id number], [place] tel:[phone] CVR - [place] Encounter for follow-up examination after completed treatment for conditions other than malignant nePain in right leg 4 Keon MIRZA RVT, RPVI Robert. [address] [place] [address], [facility] [place], [id number], [place]. tel:[phone] Referring Provider: Placido Herbert MD, RVT, MARISSA, [address] [place] [address], [place], [address] . tel:[phone] [facility], [address] [place] [address] Dr [address] 1000Bennie [place], [id number], [place] tel:[phone] CVR - [facility] Varicose veins of right lower extremity with other complications 4 Keon MIRZA RVT, RPVI Robert. [address] [place] [address], [place] [address], [facility] [place], [id number], [place]. tel:[phone] [facility], [address] [place] [address] Dr [address]Suite Bennie Hassan MD, [id number], [place] tel:[phone] CVR - [place] Chronic venous hypertension (idiopathic) with inflammation of right lower extremity 4 Keon MIRZA, RVT, VI Placido. [address] [place] [address], [place], [id number], [place]. tel:[phone] Referring Provider: Placido Herbert MD, RVT, [facility], [address] [place] [address], [place], [address] . tel:[phone] Offic/outpt E&m Estab 5 Min Trial - [facility]icine [facility], [address] [place] [address] Dr [address] 1000Bennie MD, [id number], [place] tel:[phone] CVR - [place] Localized edemaCramp and spasmRestless legs syndromeVenou s insufficiency (chronic) (peripheral)P ruritus, unspecified 4 Kyaw Dos Santos. [address] [place] [address], [place], [id number], [place]. tel:[phone] Referring Provider: Margie Paz MD [facility], [address] [place] [address], [facility] 202 - [facility] Physician [facility] [place], [place], [address]. tel:[phone] [facility], [address] [place] [address] Dr [address] 1000Bennie MD, [id number], [place] tel:[phone] CVR - [facility] Chronic venous hypertension (idiopathic) with other complications of bilateral lower extremity 3 Del MIRZA FACS RVT [facility] Parisi. [address] [place] [address], [place], [address], [place]. tel:[phone] Referring Provider: Hnany Mathis MD FACS RVT [facility], [address] [place] [address], [place], [address]. tel:[phone] Office/Oupt E&M New Pt 45 Mins [facility], [address] [place] [address] Dr [address] 1000Bennie [place], [id number], [place] tel:[phone] CVR - [place] Localized edemaCramp and spasmRestless legs syndromeChron ic venous hypertension (idiopathic) with other complications of bilateral lower extremityPrur itus, unspecified Del MIRZA FACS T MARISSA Parisi. [address] [facility], [address], [place], [address], . tel:[phone] Referring Provider: Hanny ANN, [address] [facility] [address], [place], [address]. tel:[phone] Family History Family Member Type Diagnosis Age At Onset No Information Payers Payer name Insurance type Covered constitution party ID Authornovamora keirydalton(s) Medical Assistance [facility] [id number] [facility] [id number] Social History Type Description Quantity Date [...]
== END 2024-09-25 08:12 | disposition home or self-care (01) ==
LOC: HO.HOSX 08:11
PROVIDERS: Visit Provider Physician Assistant
DX: M17.12 Unilateral primary osteoarthritis, left knee (principal); M25.562 Pain in left knee
CPT/HCPCS: 20610; 73562; 99202; J1010; J2003

== ENCOUNTER 2024-09-25 13:53 | Outpatient (AMB) | payer OTHER, SELFPAY ==
--- NOTE | 2024-09-25 14:14 | A.OFFVIS_ITS ---
Vital Signs 09/25/24 14:30 Height 5 ft 3 in Weight 179 lb BMI 31.7 Intake Visit Reasons: New Pt - left knee pain Intake Note: Minnie is a 43 year old female who presents today as a new patient for evaluation of left knee pain. States pain stated about 1 year after falling down. States her knee was fine until recently. She is having pain, knee gives out when walking and swelling. 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 She has tried P.T in July with no improvement. Hx of O.A in lower back. referred by Pain Management. MRI ordered by them, done 07/09/24. Allergies pineapple Allergy (Intermediate, Verified 09/25/24 14:35) Anaphylaxis diclofenac Adverse Reaction (Mild, Verified 09/25/24 14:35) Swelling SEASONAL ALLERGIES Allergy (Intermediate, Uncoded 09/25/24 14:35) RUNNY NOSE WATERY ITCHY EYES HPI HPI New Pt - left knee pain: Details: Ms. Quintero is a 43-year-old female who presents to the office today for evaluation of chronic left knee pain. She reports that she fell roughly 1 year ago and at that time did not seek treatment. Over the course of the year her pain has gradually increased. 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 She has noticed that with using the clutch this has caused an increase in pain. She is a patient with pain management where they had ordered an MRI of the left knee. MRI imaging was consistent with arthritis. Therefore she was recommended orthopedic follow-up. [facility] Medical History (Updated 09/25/24 @ 14:47 by Jenny Vyas PA-C) Acid reflux Sinusitis Lower back pain Asthma Surgical History History of Papanicolaou smear of cervix (~2023) Hx of abdominoplasty Hx of breast implant Hx of laparoscopic gastric banding (~2005) History of tubal ligation (~2003) Family History Mother Schizophrenia Mental health disorder Asthma Father Asthma Sister Substance abuse Social History Household Members: Family Both parents involved: No Caregiver staying overnight: No Housing: House Are you a primary care transition manager to a significant other at home: No Do you presently have visiting nurse or other home services: No 75 years or older and lives alone: No Alcohol intake: current Alcohol type: beer and other Comment: Fridays- 3 drinks or 5 beers Patient Tobacco Use Status: Former Tobacco user e-Cigarette/Vaping Use: Never Used service: No Current occupational status: employed 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 Range of motion 0-120. Crepitus with range of motion. NVI. Office Procedures AMB Joint Injection/Aspiration Joint Injection/Aspiration Primary Site: right knee Prep: site was prepped using aseptic technique, ethochloride spray was applied and injection warnings given Injected: 80 mg of, DepoMedrol, with 8 mL of (2% plain lidocaine) and in the joint Approach Used: anterolateral Procedure: The patient tolerated the procedure well, but had some pain with the injection and there was some relief with the local anesthesia Coding 26323 - Large joint Procedure code (CPT) selection complete Assessment & Plan Assessment & Plan (1) Osteoarthritis of left knee: Code(s): M17.12 - Unilateral primary osteoarthritis, left knee Category: Medical Plan Ms. Quintero is a 43-year-old female who presents to the office today for evaluation of chronic left knee pain. She reports that she fell roughly 1 year ago and at that time did not seek treatment. Over the course of the year her pain has gradually increased. 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 She has noticed that with using the clutch this has caused an increase in pain. She is a patient with pain management where they had ordered an MRI of the left knee. MRI imaging was consistent with arthritis. Therefore she was recommended orthopedic follow-up. The patient was offered a cortisone injection in the left knee with 80 mg of DepoMedrol. The patient was explained the risks, benefits, and alternatives to receiving this injection. After receiving consent for the injection, the patient had the procedure done while in the office today. The patient tolerated the procedure well with no complications. MRI obtained on 07/09/2024: IMPRESSION: 1. Minimal/early degenerative arthritis medial and lateral compartments with subtle chondrocalcinosis. 2. Mild osteoarthrosis in the patellofemoral joint with patellar cartilaginous abnormalities as described. 3. No meniscal tear or ligamentous injury identified. X-rays of the left knee which were obtained while in the office today and were reviewed by me, Jenny Vyas PA-C, revealed arthritic changes. Follow-up will be p.r.n., or sooner if needed Orders: Orders XR knee LT 3V Today M25.569 - Pain in unspecified knee Coding Level of Care Code New Pt Level 3 (06610) Diagnoses Osteoarthritis of left knee M17.12 CPT Codes Coding - 15841 Large joint: 42762 - Large joint ([id number])
[2024-09-25 14:30] VITALS: BMI 31.7
--- OUTSIDE RECORDS SUMMARY | 2024-09-25 16:40 | XMS_ITS | Continuity of Care Document ---
Author Organization [facility] Address [address] [place] [address] Phone Care Team Providers Care Monomer Purification Operator Name Role Phone Keon MIRZA, RVT, MARISSA, [...] & [place] A Duplex Scan-extrem Veins; Uni/ Endovenous Laser, 1st Vein Endovenous Laser, 1st [...] E&M Established 10 Mins- CT & [place] [facility], [address] [place] [address] Dr Porter [address] Bennie Hassan MD, [id number], [place] tel:[phone] CVR - [place] Pruritus, unspecifiedCh ronic venous hypertension (idiopathic) with other complications of bilateral lower extremityRest less legs syndrome 0 4 Keon MIRZA RVT, RPVI Robert. [address] [place] [address], [place], [id number], [place]. tel:[phone] [place] [facility], [address] [place] [address] Dr [address] 1000Bennie [place], [id number], [place] tel:[phone] CVR - [place] Pain in right legPain in left leg 4 Keon MIRZA RVT, RPVI Robert. [address] [place] [address], [place], [id number], [place]. tel:[phone] Referring Provider: Placido Herbert MD, RVT, RPVI, [address] [place] [address], [place], [address] . tel:[phone] [facility], [address] [place] [address] Dr [address] Bennie Hassan MD, [id number], [place] tel:[phone] CVR - [place] Encounter for follow-up examination after completed treatment for conditions other than malignant neoplasmChron ic venous hypertension (idiopathic) with other complications of left lower extremity 0 4 Keon MIRZA RVT, RPVI Robert. [address] [place] [address], [place], [id number], [place]. tel:[phone] Referring Provider: Placido Herbert MD, RVT, MARISSA, [address] [place] [address], [place], [address] . tel:[phone] [facility], [address] [place] [address] Dr [address] Bennie Hassan MD, [id number], [place] tel:[phone] CVR [place] Chronic venous hypertension (idiopathic) with inflammation of left lower extremity Apr-0 4 Keon MIRZA RVT, RPVI Robert. [address] [place] [address], Suite [facility] [place], [id number], [place]. tel:[phone] Div[facility], [address] [place] [address] Dr [address] Bennie Hassan MD, [id number], [place] tel:[phone] CVR - [place] Chronic venous hypertension (idiopathic) with inflammation of left lower extremity Apr-0 4 Keon MIRZA RVT, RPVI Robert. [address] [place] [address], Suite [facility] [place], [id number], [place]. tel:[phone] Referring Provider: Placido Herbert MD, RVT, MARISSA, [address] [place] [address] Suite [facility] [place], [address] . tel:[phone] Divina [facility], [address] [place] [address] Dr Porter [facility] [place] Hassan MD, [id number], [place] tel:[phone] CVR - [place] Encounter for follow-up examination after completed treatment for conditions other than malignant nePain in right leg 4 Keon MIRZA RVT, RPVI Robert. [address] [place] [address], [facility] [place], [id number], [place]. tel:[phone] Referring Provider: Placido Herbert MD, RVT, MARISSA, [address] [place] [address], [facility], [address] . tel:[phone] Divina [facility], [address] [place] [address] Dr [address] 1000Bennie [place], [id number], [place] tel:[phone] CVR - [facility] Varicose veins of right lower extremity with other complications 4 Keon MIRZA RVT, RPVI Robert. [address] [place] [address], [place] [address], [facility] [place], [id number], [place]. tel:[phone] Div[facility], [address] [place] [address] Dr [address] Bennie Hassan MD, [id number], [place] tel:[phone] CV[place] - [place] Chronic venous hypertension (idiopathic) with inflammation of right lower extremity 4 Keon MIRZA, RVT, VI Placido. [address] [place] [address], [place], [id number], [place]. tel:[phone] Referring Provider: Placido Herbert MD, RVT, [facility], [address] [place] [address], [place], [address] . tel:[phone] Offic/outpt E&m Estab 5 Min Trial - [facility]medicine [facility], [address] [place] [address] Dr [address] 1000Bennie [place], [id number], [place] tel:[phone] [place] - [place] Localized edemaCramp and spasmRestless legs syndromeVenou s insufficiency (chronic) (peripheral)P ruritus, unspecified 4 Kyaw Dos Santos. [address] [place] [address], [place], [id number], [place]. tel:[phone] Referring Provider: Margie Paz MD [facility], [address] [place] [address], [facility] 202 - [facility] Physician [facility] [place], [place], [address]. tel:[phone] [facility], [address] [place] [address] Dr [address] 1000Bennie [place], [id number], [place] tel:[phone] CVR - [facility] Chronic venous hypertension (idiopathic) with other complications of bilateral lower extremity 3 Del MIRZA FACS RVT EH Parisi. [address] [place] [address], [place], [address], [place]. tel:[phone] Referring Provider: Hanny Mathis MD FACS RVT [facility], [address] [place] [address], [place], [address]. tel:[phone] Office/Oupt E&M New Pt 45 Mins [facility], [address] [place] [address] Dr [address] 1000Bennie [place], [id number], [place] tel:[phone] [place] - [place] Localized edemaCramp and spasmRestless legs syndromeChron ic venous hypertension (idiopathic) with other complications of bilateral lower extremityPrur itus, unspecified Del MIRZA FACS T MARISSA Parisi. [address] [facility], [address], [place], [address], . tel:[phone] Referring Provider: Hanny ANN, [address] [facility] [address], [place], [address]. tel:[phone] Family History Family Member Type Diagnosis Age At Onset No Information Payers Payer name Insurance type Covered libertarian ID Authornovamora keirydalton(s) Medical Assistance [facility] [id number] [facility] [id number] Social History Type Description Quantity Date [...]
--- OUTSIDE RECORDS SUMMARY | 2024-09-25 16:40 | XMS_ITS | Clinical Summary ---
Author Organization [facility] Address [address] [place] [address] Care Team Providers Care It Application Support Analyst Name Role Phone Emily Syed MD Primary Care Provider [phone] Social History Tobacco Use Types Packs/Day Years Used Date Smoking Tobacco: Never Assessed Sex and Gender Information Value Date Recorded Sex Assigned at Not on file Gender Identity Not on file Sexual Orientation Not on file Plan of Treatment Health Maintenance Due Date Last Done Comments Hepatitis B Vaccines (1 of 3 - 3-dose series) 1982 Hepatitis C Screening 1982 COVID-19 Vaccine (#1) 04/24/1983 Depression Screening 1994 Preventative Health Evaluation 2000 DTap / Tdap / Td (1 - Tdap) 2001 Cervical Cancer Screening (P ap Smear) 10/23/2003 Influenza Vaccine (#1) 2024 Pneumococcal Vaccine Aged Out No long er eligible based on patient's age to complete this topic RSV Ped < 20 months Aged Out No longe r eligible based on patient's age to complete this topic Care Teams It Application Support Analyst Relationship Specialty Start Date End Date Emily Syed MD [address] [address] PCP - General Internal Medicine 05/09/19
== END 2024-09-25 14:54 | disposition home or self-care (01) ==
LOC: HO.HOS 13:54
PROVIDERS: PCP Nurse Practitioner Family; Visit Provider Physician Assistant
DX: M17.12 Unilateral primary osteoarthritis, left knee (principal)
CPT/HCPCS: 20610; 99203

== ENCOUNTER → 2024-09-25 14:11 | Outpatient (BNV) | payer OTHER, SELFPAY | PROVIDERS: Visit Provider Radiology Diagnostic Radiology | DX: M25.562 Pain in left knee (principal) | CPT/HCPCS: 73562 ==

== ENCOUNTER 2024-10-01 10:21 | Outpatient (REF) | payer OTHER, SELFPAY ==
--- OUTSIDE RECORDS SUMMARY | 2024-10-02 11:41 | XMS_ITS | Clinical Summary ---
Author Organization [facility] Address [address] [place] [address] Care Team Providers Care Earth Sciences Professor Name Role Phone Eimly Syed MD Primary Care Provider [phone] Social History Tobacco Use Types Packs/Day Years [...] age to complete this topic Care Teams Earth Sciences Professor Relationship Specialty Start Date End Date Emily Syed MD [address] [address] PCP - General Internal Medicine 05/09/19
== END 2024-10-01 10:22 | disposition home or self-care (01) ==
LOC: HO.HOSX 10:21
PROVIDERS: Visit Provider Physician Assistant
DX: Z13.89 Encounter for screening for other disorder (principal)

== ENCOUNTER 2024-10-03 07:06 | Outpatient (REF) | payer OTHER, SELFPAY ==
--- NOTE | ~2024-10-03 | FL_ITS ---
EXAMINATION: FL GUIDANCE ONLY HISTORY: M47.816 - Spondylosis without myelopathy or radiculopathy, lumbar region COMPARISON: None available. TECHNIQUE: Fluoroscopy time: 0.1 minutes. Cumulative Dose: 2.80 mGy. DAP: 0.0371 mGym2 Images: 2. FINDINGS: Images demonstrate needles and contrast material in the regions of the bilateral L3-4, L4-5, and L5-S1 facet joints. FL/FL guidance in treatment room IMPRESSION: Fluoroscopy during procedure. Please see procedure report for additional information. Electronically signed by: Placido Diego MD 10/03/2024 02:49 PM EDT
--- OUTSIDE RECORDS SUMMARY | 2024-10-03 07:10 | XMS_ITS | Clinical Summary ---
Author Organization [facility] Address [address] [place] [address] Care Team Providers Care Recyclable Materials Distributor Name Role Phone Emily Syed MD Primary Care Provider Social History [...] age to complete this topic Care Teams Recyclable Materials Distributor Relationship Specialty Start Date End Date Emily Syed MD [address] [address] PCP - General Internal Medicine 05/09/19
== END 2024-10-03 07:07 | disposition home or self-care (01) ==
LOC: CF 07:06
PROVIDERS: Visit Provider Internal Medicine
DX: M47.816 Spondylosis without myelopathy or radiculopathy, lumbar region (principal)
CPT/HCPCS: 64494; 64493; J2003; J2795; Q9967

== ENCOUNTER 2024-10-03 11:12 | Outpatient (AMB) | payer OTHER, SELFPAY ==
--- NOTE | 2024-10-03 11:17 | A.OFFVIS_ITS ---
Vital Signs 10/03/24 11:18 BP 102/66 Blood Pressure Location Lt brachial Position Sitting Respiration 16 Pulse 57 Pulse Source Pulse Oximeter Pulse Oximetry (%) 98 Oxygen Delivery Method Room Air Intake Visit Reasons: Hector Dx L3-L4-DR-L5 MBB Presales Engineer Required: No Allergies pineapple Allergy (Intermediate, Verified 10/03/24 11:18) Anaphylaxis diclofenac Adverse Reaction (Mild, Verified 10/03/24 11:18) Swelling SEASONAL ALLERGIES Allergy (Intermediate, Uncoded 10/03/24 11:18) RUNNY NOSE WATERY ITCHY EYES Medication List - Last Reconciled 10/03/24 by Milvia Michele LPN fluticasone furoate 100 mcg/actuation (Arnuity Ellipta) 1 inh inhalation DAILY hydroxyzine HCl 25 mg PO BEDTIME PRN ibuprofen 800 mg PO Q8H PRN ipratropium-albuterol 20-100 mcg/actuation (Combivent Respimat) 1 puff inhalation QID 30 days lidocaine 5% leave on most painful area for up to 12 hrs topical 30 days multivitamin (Multiple Vitamins tablet) 1 tab PO DAILY pantoprazole 20 mg PO DAILY paroxetine HCl (Paxil) 10 mg PO DAILY HPI HPI Hector Dx L3-L4-DR-L5 MBB: Details: Patient presents for scheduled procedure. Denies any recent cough, cold, infection, fever or other significant changes in medical history since last office visit. [facility] Medical History (Updated 09/25/24 @ 14:47 by Jenny Vyas PA-C) Acid reflux Sinusitis Lower back pain Asthma Surgical History History of Papanicolaou smear of cervix (~2023) Hx of abdominoplasty Hx of breast implant Hx of laparoscopic gastric banding (~2005) History of tubal ligation (~2003) Family History Mother Schizophrenia Mental health disorder Asthma Father Asthma Sister Substance abuse Social History Household Members: Family Both parents involved: No Caregiver staying overnight: No Housing: House Are you a primary career consultant to a significant other at home: No Do you presently have visiting nurse or other home services: No 75 years or older and lives alone: No Alcohol intake: current Alcohol type: beer and other Comment: Fridays- 3 drinks or 5 beers Patient Tobacco Use Status: Former Tobacco user e-Cigarette/Vaping Use: Never Used service: No Current occupational status: employed 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 Current occupational exposures/hazards: No Cognitive needs: No Hearing needs: No Vision needs: No Female Reproductive History Menstrual Age of Menarche: 14 Physical Exam Vital Signs: Last Vital Signs Pulse 57 10/03/24 11:18 Resp 16 10/03/24 11:18 BP 102/66 10/03/24 11:18 Pulse Ox 98 10/03/24 11:18 Oxygen Delivery Method Room Air 10/03/24 11:18 Office Procedures Details: Lumbar Medial Branch Block, Bilateral L3, L4 medial branches and L5 Dorsal Ramus (2 levels, 3 nerves) After obtaining written consent, pre-procedure blood pressure and pulse were recorded and are in the nursing record for review. The patient was placed in a prone position. The respective lumbosacral area was prepped with chloraprep and draped in sterile fashion. The skin over the target medial branch nerves was anesthetized with 0.5% lidocaine. A 22 gauge 3.5 inch needle was inserted into the target medial branch nerve under fluoroscopic guidance. No paresthesias were elicited with needle placement and aspiration was negative for blood and CSF. Next, 0.2cc of omnipaque 180 was injected to verify positioning. Next 0.5 ml 0.5% ropivicaine was injected (0.5cc total per level). The identical procedure was performed at the remaining levels. The skin was cleansed and a sterile bandage was applied. Following the procedure the patient's vital signs were stable. The patient tolerated the procedure well and no complications were encountered. Following the procedure the patient's vital signs were stable. The patient was discharged home in good condition with post-procedural instructions. Time Out: Immediately prior to the procedure, the following was verbally confirmed that there is a signed consent form and that the correct patient, planned procedure, site and side are consistent with documentation and that necessary equipment and/or blood products are available prior to the start of the case. Complications: none EBL: <5 cc 88756 - with Fluoroscopy (L3-L4) (bilateral) 73311 - second level with Fluoroscopy (L3-L4-L5) Procedure code (CPT) selection complete Assessment & Plan Assessment & Plan (1) Lumbar spondylosis: Code(s): M47.816 - Spondylosis without myelopathy or radiculopathy, lumbar region Category: Medical Plan Patient is status post bilateral diagnostic L3, L4, L5 medial branch blocks. Patient tolerated procedure well and was discharged home in stable condition with discharge instructions. All questions were answered. We will follow-up via telephone or in clinic to assess response to therapy. A follow-up appointment was made during today's visit. Orders: Orders FL guidance in treatment room Today Kavita Madrigal APRN, MANAGER [employer] M47.816 - Spondylosis without myelopathy or radiculopathy, lumbar region AMB Medial Branch Block - Lumbar/Sacral Today Gustavo Nguyen MD M47.816 - Spondylosis without myelopathy or radiculopathy, lumbar region Coding Level of Care Code Procedure Only Diagnoses Lumbar spondylosis M47.816 CPT Codes Medial Branch Block Lumbar/Sacral1 - Branch Block Lumb/Sac 1: 96512 - with Fluoroscopy (L3-L4) ([id number]) Medial Branch Block Lumbar/Sacral1 - Branch Block Lumb/Sac 2: 75203 - second level with Fluoroscopy (L3-L4-L5) ([id number])
[2024-10-03 11:18] VITALS: BP 102/66; PULSE 57; RESP 16; O2SAT 98
--- OUTSIDE RECORDS SUMMARY | 2024-10-03 13:03 | XMS_ITS | Clinical Summary ---
Author Organization [facility] Address [address] [place] [address] Care Team Providers Care Diesel Plant Operator Name Role Phone Emily Syed MD Primary [...] age to complete this topic Care Teams Diesel Plant Operator Relationship Specialty Start Date End Date Emily Syed MD [address] [address] PCP - General Internal Medicine 05/09/19
== END 2024-10-03 11:50 | disposition home or self-care (01) ==
LOC: HO.PMCPRC 11:12
PROVIDERS: PCP Family Medicine; Visit Provider Internal Medicine
DX: M47.816 Spondylosis without myelopathy or radiculopathy, lumbar region (principal)
CPT/HCPCS: 64493; 64494

== ENCOUNTER 2024-10-31 09:33 | Outpatient (AMB) | payer OTHER, SELFPAY ==
--- NOTE | 2024-10-31 09:34 | A.OFFVIS_ITS ---
Vital Signs 3 10/31/24 09:37 Height 5 ft 3 in Weight 175 lb BMI 31.0 BP 110/57 L Blood Pressure Location Rt brachial Position Sitting Pulse 57 Pulse Source Pulse Oximeter Pulse Oximetry (%) 99 Oxygen Delivery Method Room Air Intake Visit Reasons: s/p mateus Dx L3-L4-DR-L5 MBB Intake Note: Pain today 2/10 Security Project Manager Required: No Accompanied by: Self / Same As Patient Allergies pineapple Allergy (Intermediate, Verified 10/31/24 09:37) Anaphylaxis diclofenac Adverse Reaction (Mild, Verified 10/31/24 09:37) Swelling SEASONAL ALLERGIES Allergy (Intermediate, Uncoded 10/03/24 11:18) RUNNY NOSE WATERY ITCHY EYES HPI Comments Details: The patient is a 44-year-old female presenting with chronic low back pain. The pain was initially severe at 9/10 and has persisted over time. Following bilateral diagnostic L3-L4-L5 medial branch blocks conducted on 10/03/[address] Nguyen, the pain intensity decreased to 2/10 with sustained 80% relief since procedure. The intervention has also reduced the burning sensation previously associated with the low back pain. The patient's ability to stand, perform daily chores and activities, and sleep has improved, indicating enhanced functionality. No specific exacerbating factors were noted, and the pain occasionally radiates to the mid-back. The patient has experienced a positive impact on mood and daily activities following the procedure. Past Procedures: 10/03/24: Bilateral Diagnostic L3-L4 DR L5 MBB-80% pain relief for >3 weeks PRIOR: Patient presents today for follow up to discuss recent lumbar spine MRI results. She continues to endorse lower back pain with bilateral radiculopathy and numbness and tingling in her toes, worse in big toes bilaterally. Patient also reports she lost her balance last week and fell. Reports increased back and left knee pain and occasional right knee pain. She reports axial low back pain has been worse than radicular pain. She is interested to proceed with diagnostic lumbar medial branch blocks to confirm axial low back pain. Denies any recent cough, cold, infection, fever, foot drop, bladder or bowel dysfunction, saddle anesthesia or any other significant changes in medical history since last office visit. [facility] old records were reviewed and noted for Caudal JAMES injections on 04/08/2015 and 06/17/[address] Foss for CLBP and LE pain with good pain relief. PRIOR: Patient is a pleasant 43 years old female with history of lower back pain, left shoulder, bilateral breast reduction with implants and abdominoplasty (07/2023), lumbar degenerative disc disease with facet arthropathy at L5-S1, presents today for initial evaluation of lower back pain with radicular symptoms and left knee pain. Knee pain has been present for 6 months, back pain for over 10 years. Denies any recent trauma, injury or falls. Reports mechanical fall downstairs over 10 years which worsened back pain. She has been seen at [facility] and received injections in 2016 with good relief. Patient also went to [facility] [place] few months ago and completed lumbar spine and knee xray but had no injections. She is currently in physical therapy at [facility]. Back pain is axial and also significantly increases with flexing or bending forward with reproduction of pain on right side. She also reports anterior left knee pain with walking, climbing stairs or cold weather. 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 Denies any fever or chills, abdominal or groin pain, weakness, bladder or bowel dysfunction or saddle anesthesia. Oswestry Low Back Disability Score=21 (moderate disability) Location: Lower back radiates down bilateral legs; left knee worse Duration: Chronic pain for >10 years ago, h/o mechanical fall downstairs Characteristics of symptom or complaint: Aching, numbness, sharp, shooting, radiating, tingling, burning, sore Aggravating or associated factors: Prolonged standing, ADLs, movements, walking, climbing stairs, cold weather Relieving factors: Ibuprofen, laying flat, heating pad, Tylenol, rest, activity modifications Treatment: PT at [facility], lumbar and knee xrays; h/o injections at [facility] Medical History Acid reflux Sinusitis Lower back pain Asthma Surgical History History of Papanicolaou smear of cervix (~2023) Hx of abdominoplasty Hx of breast implant Hx of laparoscopic gastric banding (~2005) History of tubal ligation (~2003) Family History Mother Schizophrenia Mental health disorder Asthma Father Asthma Sister Substance abuse Social History Household Members: Family Both parents involved: No Caregiver staying overnight: No Housing: House Are you a primary lawn care technician to a significant other at home: No Do you presently have visiting nurse or other home services: No 75 years or older and lives alone: No Alcohol intake: current Alcohol type: beer and other Comment: Fridays- 3 drinks or 5 beers Patient Tobacco Use Status: Former Tobacco user e-Cigarette/Vaping Use: Never Used service: No Current occupational status: employed 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 Alert and oriented. Mood and affect appropriate. Follows and participates in conversation appropriately. Respiratory effort is unlabored. No cough. Able to transition from sit to stand unassisted. Ambulates with bilaterally normal heel strike and toe off. Back/Spine/Pelvis Other: Patient is able to walk and stand on heels and tip toes demonstrating good motor tone. No limping. Lumbar flexion reproduces mild pain, extension is intact and reproduces minimal pain since recent diagnostic lumbar MBBs. Demonstrates 5/5 strength of quadriceps bilaterally as well as flexion/dorsiflexion of bilateral feet against resistance. 2+ pedal pulses bilaterally. Straight leg rise with dorsiflexion negative bilaterally. +2 patellar and achilles reflexes bilaterally. Facet loading test positive bilaterally. Maris sign positive bilateraly. David?s and Stinchfield tests are negative bilaterally. No groin pain with I/E hip rotations. Valsalva maneuver negative. Cervical Spine: cervical ROM normal and No Cervical spine tenderness Thoracic/Lumbar Spine: thoracic and lumbar spine normal to inspection, No Thoracic/lumbar spine scar(s), Lasegue's sign negative, straight leg raise negative bilaterally, pain with thoraco-lumbar ROM, paraspinal muscle tenderness, thoraco-lumbar ROM limited, No thoracic spinal tenderness and No lumbar spinal tenderness Sacroiliac joints: bilaterally tender to palpation (minimal) Results Reviewed Results Reviewed: MR LUMBAR SPINE WITHOUT CONTRAST 06/18/24 CLINICAL INFORMATION: Spondylosis with radiculopathy. COMPARISON: Lumbar spine x-ray 01/02/2016 FINDINGS: There is normal lumbar lordosis. The vertebral heights and alignment is normal. The T12-L1, L1-2, L2-3 disc levels are unremarkable. At L3-4 disc level there is minimal disc bulge flattening slightly eccentric to the right with mild flattening of ventral thecal sac without spinal canal stenosis. There is mild narrowing of right lateral recess and proximal neural foramina. The left neural foramina appear patent. At L4-5 disc level there is no significant disc bulge, herniation or spinal canal stenosis. The neural foramina are patent in spite of mild facet joint arthropathy and minimal hypertrophy. At L5-S1 disc level there is no significant disc bulge, herniation or spinal canal stenosis. The neural foramina are patent bilaterally. Incidentally noted is a central disc herniation at T11-T12 disc level with minimal AP canal narrowing. Conus medullaris terminates at T12-L1 disc level and appears normal in morphology. IMPRESSION: Mild disc bulge eccentric to the right resulting in moderate right inferolateral recess and neural foraminal narrowing at the L3-4 disc level. Incidental finding of central disc herniation at T11-12 disc level without spinal canal stenosis. Assessment & Plan Assessment & Plan (1) Lumbar spondylosis: Code(s): M47.816 - Spondylosis without myelopathy or radiculopathy, lumbar region Category: Medical (2) Chronic low back pain: Code(s): M54.50 - Low back pain, unspecified; G89.29 - Other chronic pain Category: Medical (3) Lumbar degenerative disc disease: Code(s): M51.369 - Other intervertebral disc degeneration, lumbar region without mention of lumbar back pain or lower extremity pain Category: Medical Plan Patient is over 3 weeks status post successful bilateral diagnostic lumbar medial branch blocks with ongoing 80% pain relief, with significant improvement in her daily functioning, movements and sleep. We discussed therapeutic injections, RFA and SPRINT peripheral nerve stimulator for the patient's chronic low back pain. Patient is interested to proceed with therapeutic injections as next steps and consider Sprint PNS trial in the fall as she plans swimming during summer months. Schedule Bilateral Therapeutic L3-L4-DR L5 MBB with local and fluoroscopy for axial low back pain. Expectations, risks and benefits were reviewed. Patient is aware she will be contacted to schedule this procedure. All questions and concerns have been answered and patient agreed with the treatment plan. Follow up after injections/MRI review and sooner as needed. Patient was informed and verbally consented to the use of an ambient scribe for clinic note documentation during this visit. Coding Level of Care Code Est Pt Level 3 (25337) Complex EM visit Add On G2211 Diagnoses Lumbar spondylosis M47.816 Chronic low back pain M54.50; G89.29 Lumbar degenerative disc disease M51.369
[2024-10-31 09:37] VITALS: BP 110/57; PULSE 57; O2SAT 99; BMI 31.0
--- OUTSIDE RECORDS SUMMARY | 2024-10-31 09:51 | XMS_ITS | Continuity of Care Document ---
Author Organization [facility] Address [address] [place] [address] Phone Care Team Providers Care Local Company Flatbed Truck Driver Name Role Phone Keon MIRZA, RVT, MARISSA, [...] E&M Established 10 Mins- CT & [place] [facility], [address] [place] [address] Dr [address] [place] Hassan [place], [id number], [place] tel:[phone] CVR - [place] Pruritus, unspecifiedCh ronic venous hypertension (idiopathic) with other complications of bilateral lower extremityRest less legs syndrome 0 4 Keon MIRZA RVT, RPVI Robert. [address] [place] [address], [place], [id number], [place]. tel:[phone] [place] [facility], [address] [place] [address] Dr [address]ennie [place], [id number], [place] tel:[phone] CVR - [place] Pain in right legPain in left leg 4 Keon MIRZA RVT, RPVI Robert. [address] [place] [address], [place], [id number], [place]. tel:[phone] Referring Provider: Placido Herbert MD, RVT, RPVI, [address] [place] [address], [place], [address] . tel:[phone] [facility], [address] [place] [address] [address] Bennie Hassan [place], [id number], [place] tel:[phone] CVR - [place] Encounter for follow-up examination after completed treatment for conditions other than malignant neoplasmChron ic venous hypertension (idiopathic) with other complications of left lower extremity 0 4 Keon MIRZA RVT, RPVI Robert. [address] [place] [address], [place], [id number], [place]. tel:[phone] Referring Provider: Placido Herbert MD, RVT, MARISSA, [address] [place] [address], [place], [address] . tel:[phone] [facility], [address] [place] [address] [address] Bennie Hassan MD, [id number], [place] tel:[phone] CVR - [place] Chronic venous hypertension (idiopathic) with inflammation of left lower extremity Apr-0 4 Keon MIRZA RVT, RPVI Robert. [address] [place] [address], Suite [facility] [place] [facility] [facility], [id number], [place]. tel:[phone] [facility], [address] [place] [address] [address] Bennie Hassan [place], [id number], [place] tel:[phone] CVR - [place] Chronic venous hypertension (idiopathic) with inflammation of left lower extremity Apr-0 4 Keon MIRZA RVT, RPVI Robert. [address] [place] [address], Suite [facility], [place] [facility], [id number], [place]. tel:[phone] Referring Provider: Placido Herbert MD, RVT, MARISSA, [address] [place] [address] Suite [facility], [place], [address] . tel:[phone] [facility], [address] [place] [address] Dr [address] [place], [id number], [place] tel:[phone] CVR - [place] Encounter for follow-up examination after completed treatment for conditions other than malignant nePain in right leg 4 Keon MIRZA RVT, RPVI Robert. [address] [place] [address], [facility] [place], [id number], [place]. tel:[phone] Referring Provider: Placido Herbert MD, RVT, MARISSA, [address] [place] [address], [place], [address] . tel:[phone] [facility], [address] [place] [address] [address] 1000[place]ennie [place], [id number], [place] tel:[phone] CVR - [facility] Varicose veins of right lower extremity with other complications 4 Keon MIRZA RVT, RPVI Robert. [address] [place] [address], [place] [address], [facility] [place], [id number], [place]. tel:[phone] [facility], [address] [place] [address] [address] Bennie Hassan MD, [id number], [place] tel:[phone] CVR - [place] Chronic venous hypertension (idiopathic) with inflammation of right lower extremity 4 Keon MIRZA, RVT, VI Placido. [address] [place] [address], [place], [id number], [place]. tel:[phone] Referring Provider: Placido Herbert MD, RVT, [facility], [address] [place] [address], [place], [address] . tel:[phone] Offic/outpt E&m Estab 5 Min Trial - [facility], [address] [place] [address] [address] 1000[place]ennie [place], [id number], [place] tel:[phone] CV[place] - [place] Localized edemaCramp and spasmRestless legs syndromeVenou s insufficiency (chronic) (peripheral)P ruritus, unspecified 4 Kyaw Dos Santos. [address] [place] [address], [place], [id number], [place]. tel:[phone] Referring Provider: Margie Paz MD [facility], [address] [place] [address], [facility] 202 - [facility] Physician [facility] [place], [address]. tel:[phone] [facility], [address] [place] [address] [address] 1000[place]ennie [place], [id number], [place] tel:[phone] CVR - [facility] Chronic venous hypertension (idiopathic) with other complications of bilateral lower extremity 3 Del MIRZA FACS RVT [facility] Parisi. [address] [place] [address], [place], [address], [place]. tel:[phone] Referring Provider: Hanny Mathis MD FACS RVT [facility], [address] [place] [address], [place], [address]. tel:[phone] Office/Oupt E&M New Pt 45 Mins [facility], [address] [place] [address] [address] 1000[place]ie [place], [id number], [place] tel:[phone] CVR - [place] Localized edemaCramp and spasmRestless legs syndromeChron ic venous hypertension (idiopathic) with other complications of bilateral lower extremityPrur itus, unspecified Del MIRZA FACS T MARISSA Parisi. [address], [address], [place], [address], . tel:[phone] Referring Provider: Hanny ANN, [address], [place], [address]. tel:[phone] Family History Family Member Type Diagnosis Age At Onset No Information Payers Payer name Insurance type Covered alliance party ID Authornovamora keirydalton(s) Medical Assistance [facility] [id number] [facility] [id number] Social History Type Description Quantity Date [...]
== END 2024-10-31 10:16 | disposition home or self-care (01) ==
LOC: HO.PMC 09:33
PROVIDERS: PCP Nurse Practitioner Family; Visit Provider Nurse Practitioner Family
DX: M47.816 Spondylosis without myelopathy or radiculopathy, lumbar region (principal); M54.50 Low back pain, unspecified; G89.29 Other chronic pain; M51.369 Other intervertebral disc degeneration, lumbar region without mention of lumbar back pain or lower extremity pain
CPT/HCPCS: 99213; G2211

== ENCOUNTER → 2024-10-31 09:33 | Outpatient (BNVA) | payer OTHER, SELFPAY | PROVIDERS: PCP Nurse Practitioner Family; Visit Provider Nurse Practitioner Family | DX: M47.816 Spondylosis without myelopathy or radiculopathy, lumbar region (principal); M54.50 Low back pain, unspecified; M51.369 Other intervertebral disc degeneration, lumbar region without mention of lumbar back pain or lower extremity pain; G89.29 Other chronic pain | CPT/HCPCS: 99212 ==

== ENCOUNTER 2024-11-28 06:20 | Outpatient (REF) | payer OTHER, SELFPAY ==
--- NOTE | ~2024-11-28 | FL_ITS ---
EXAMINATION: FL GUIDANCE ONLY HISTORY: M47.816 - Spondylosis without myelopathy or radiculopathy, lumbar region COMPARISON: None available. TECHNIQUE: Fluoroscopy time: 0.2 minutes. Cumulative Dose: 2.03 mGy. DAP: 0.0195 mGym2 Images: 3. FINDINGS: Fluoroscopic spot films of the lumbar spine demonstrate needles and contrast material in the regions of the bilateral L3-4, L4-5, and L5-S1 facet joints. FL/FL guidance in treatment room IMPRESSION: Fluoroscopy during procedure. Please see procedure report for additional information. Electronically signed by: Placido Diego MD 11/28/2024 01:42 PM EDT
--- OUTSIDE RECORDS SUMMARY | 2024-11-28 06:21 | XMS_ITS | Clinical Summary ---
Author Organization [facility] Address [address] [place] [address] Care Team Providers Care Under Presser Name Role Phone Emily Syed MD Primary [...] Screening (P ap Smear) 10/23/2003 Influenza Vaccine (Season Ended) 2025 Pneumococcal Vaccine Aged Out No long er eligible based on patient's age to complete this topic RSV Ped < 20 months Aged Out No longe r eligible based on patient's age to complete this topic Care Teams Under Presser Relationship Specialty Start Date End Date Emily Syed MD [address] [address] PCP - General Internal Medicine 05/09/19
== END 2024-11-28 06:21 | disposition home or self-care (01) ==
LOC: CF 06:20
PROVIDERS: Visit Provider Internal Medicine
DX: M47.816 Spondylosis without myelopathy or radiculopathy, lumbar region (principal)
CPT/HCPCS: 64493; 64494; J2003; J2795; J3301; Q9967

== ENCOUNTER 2024-11-28 10:54 | Outpatient (AMB) | payer OTHER, SELFPAY ==
[2024-11-28 11:14] VITALS: BP 101/67; PULSE 57; RESP 16; O2SAT 98; BMI 31.0
--- NOTE | 2024-11-28 11:14 | A.OFFVIS_ITS ---
Vital Signs 11/28/24 11:14 11/28/24 11:18 Height 5 ft 3 in 5 ft 3 in Weight 175 lb 175 lb BMI 31.0 31.0 BP 101/67 118/81 Blood Pressure Location Lt brachial Lt brachial Position Sitting Sitting Respiration 16 16 Pulse 57 70 Pulse Source Pulse Oximeter Pulse Oximeter Pulse Oximetry (%) 98 100 Oxygen Delivery Method Room Air Room Air Intake Visit Reasons: Hector theraputic L3-L4-DR-L5 MBB Allergies pineapple Allergy (Intermediate, Verified 10/31/24 09:37) Anaphylaxis diclofenac Adverse Reaction (Mild, Verified 10/31/24 09:37) Swelling SEASONAL ALLERGIES Allergy (Intermediate, Uncoded 10/03/24 11:18) RUNNY NOSE WATERY ITCHY EYES HPI HPI Hector theraputic L3-L4-DR-L5 MBB: Details: Patient presents for scheduled procedure. Denies any recent cough, cold, infection, fever or other significant changes in medical history since last office visit. [facility] Medical History Acid reflux Sinusitis Lower back pain Asthma Surgical History History of Papanicolaou smear of cervix (~2023) Hx of abdominoplasty Hx of breast implant Hx of laparoscopic gastric banding (~2005) History of tubal ligation (~2003) Family History Mother Schizophrenia Mental health disorder Asthma Father Asthma Sister Substance abuse Social History Household Members: Family Both parents involved: No Caregiver staying overnight: No Housing: House Are you a primary transitional care manager to a significant other at home: No Do you presently have visiting nurse or other home services: No 75 years or older and lives alone: No Alcohol intake: current Alcohol type: beer and other Comment: Fridays- 3 drinks or 5 beers Patient Tobacco Use Status: Former Tobacco user e-Cigarette/Vaping Use: Never Used service: No Current occupational status: employed 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 Current occupational exposures/hazards: No Cognitive needs: No Hearing needs: No Vision needs: No Female Reproductive History Menstrual Age of Menarche: 14 Physical Exam Vital Signs: Last Vital Signs Pulse 70 11/28/24 11:18 Resp 16 11/28/24 11:18 BP 118/81 11/28/24 11:18 Pulse Ox 100 11/28/24 11:18 Oxygen Delivery Method Room Air 11/28/24 11:18 BMI result Body Mass Index 31.0 Office Procedures Lumbar/Sacral Facet Inj Details: Lumbar Medial Branch Block, bilateral L3, L4 medial branches and L5 Dorsal Ramus (2 levels, 3 nerves) After obtaining written consent, pre-procedure blood pressure and pulse were recorded and are in the nursing record for review. The patient was placed in a prone position. The respective lumbosacral area was prepped with chloraprep and draped in sterile fashion. The skin over the target medial branch nerves was anesthetized with 0.5% lidocaine. A 22 gauge 3.5 inch needle was inserted into the target medial branch nerve under fluoroscopic guidance. No paresthesias were elicited with needle placement and aspiration was negative for blood and CSF. Next, 0.2cc of omnipaque 180 was injected to verify positioning. Next 0.5 ml 0.5% ropivicaine was injected (0.5cc total per level). The identical procedure was performed at the remaining levels. The skin was cleansed and a sterile bandage was applied. Following the procedure the patient's vital signs were stable. The patient tolerated the procedure well and no complications were encountered. Following the procedure the patient's vital signs were stable. The patient was discharged home in good condition with post-procedural instructions. Time Out: Immediately prior to the procedure, the following was verbally confirmed that there is a signed consent form and that the correct patient, planned procedure, site and side are consistent with documentation and that necessary equipment and/or blood products are available prior to the start of the case. Complications: none EBL: <5 cc 61330 - with Fluoroscopy 10394 - second level, with Fluoroscopy Procedure code (CPT) selection complete Assessment & Plan Assessment & Plan (1) Lumbar spondylosis: Code(s): M47.816 - Spondylosis without myelopathy or radiculopathy, lumbar region Category: Medical Plan Patient is status post bilateral L3, L4, L5 medial branch diagnostic nerve blocks. Patient tolerated procedure well and was discharged home in stable condition with discharge instructions. All questions were answered. We will follow-up via telephone or in clinic to assess response to therapy. A follow-up appointment was made during today's visit. Orders: Orders FL guidance in treatment room 11/28/24 M47.816 - Spondylosis without myelopathy or radiculopathy, lumbar region Coding Level of Care Code Procedure Only Diagnoses Lumbar spondylosis M47.816 CPT Codes Facet Injection-Lumbar/Sacral - CPT: 76333 - with Fluoroscopy ([id number]) Facet Injection-Lumbar/Sacral - CPT: 93778 - second level, with Fluoroscopy ([id number])
[2024-11-28 11:18] VITALS: BP 118/81; PULSE 70; RESP 16; O2SAT 100; BMI 31.0
== END 2024-11-28 12:16 | disposition home or self-care (01) ==
LOC: HO.PMCPRC 10:54
PROVIDERS: PCP Nurse Practitioner Family; Visit Provider Internal Medicine
DX: M47.816 Spondylosis without myelopathy or radiculopathy, lumbar region (principal)
CPT/HCPCS: 64493; 64494

== ENCOUNTER 2024-12-24 15:32 | Outpatient (AMB) | payer OTHER, SELFPAY ==
--- OUTSIDE RECORDS SUMMARY | 2023-10-10 09:30 | XMS_ITS | Continuity of Care Document ---
Author Organization [facility] Address [address] [place] [address] Phone Care Team Providers Care Processing Lead Name Role Phone Keon MIRZA, RVT, MARISSA, [...] - Tele medicine Duplex Scan-extrem Veins; Comp 23 Office/Oupt E&M New Pt 45 Mins Advance Directives Directive Yes / No Effective Date File Name No Information Encounters Encounter Description Practice Location Reason(s) For Visit Diagnoses Date Provider Providers Copied on Encounter Office/Outpt E&M Established 10 Mins- CT & [place] [facility], [address] [place] [address] Dr Porter 1000Suite Bennie Hassan MD, [id number], [place] tel:[phone] [place] Pruritus, unspecifiedCh ronic venous hypertension (idiopathic) with other complications of bilateral lower extremityRest less legs syndrome 0 4 Keon MIRZA RVT, RPVI Robert. [address] [place] [address], [place], [id number], [place]. tel:[phone] [place] [facility], [address] [place] [address] Dr Porter 1000Suite 1000Bennie [place], [id number], [place] tel:[phone] [place] Pain in right legPain in left leg 4 Keon MIRZA RVT, RPVI Robert. [address] [place] [address], [place], [id number], [place]. tel:[phone] Referring Provider: Placido Herbert MD, RVT, RPVI, [address] [place] [address], [place], [address] . tel:[phone] [facility], [address] [place] [address] Dr Porter [address]Suite Bennie Hassan MD, [id number], [place] tel:[phone] [place] Encounter for follow-up examination after completed treatment for conditions other than malignant neoplasmChron ic venous hypertension (idiopathic) with other complications of left lower extremity 0 4 Keon MIRZA RVT, RPVI Robert. [address] [place] [address], [place], [id number], [place]. tel:[phone] Referring Provider: Placido Herbert MD, RVT, MARISSA, [address] [place] [address], [place], [address] . tel:[phone] [facility], [address] [place] [address] Dr Porter [address]Suite Bennie Hassan MD, [id number], [place] tel:[phone] [place] Chronic venous hypertension (idiopathic) with inflammation of left lower extremity Apr-0 4 Keon MIRZA RVT, RPVI Robert. [address] [place] [address], Suite [facility], [facility] [place], [id number], [place]. tel:[phone] [facility], [address] [place] [address] Dr Porter [address]Suite Bennie Hassan MD, [id number], [place] tel:[phone] [place] Chronic venous hypertension (idiopathic) with inflammation of left lower extremity Apr-0 4 Keon MIRZA RVT, RPVI Robert. [address] [place] [address], Suite [facility], [facility] [place], [id number], [place]. tel:[phone] Referring Provider: Placido Herbert MD, RVT, MARISSA, [address] [place] [address] Suite [facility], [facility] [place], [address] . tel:[phone] [facility], [address] [place] [address] Dr [address] [facility] Bennie Hassan MD, [id number], [place] tel:[phone] [place] Encounter for follow-up examination after completed treatment for conditions other than malignant nePain in right leg 4 Keon MIRZA RVT, RPVI Robert. [address] [place] [address], [facility] [place], [id number], [place]. tel:[phone] Referring Provider: Placido Herbert MD, RVT, MARISSA, [address] [place] [address], [facility] [place], [address] . tel:[phone] [facility], [address] [place] [address] Dr Porter 1000[address] 1000Bennie MD, [id number], [place] tel:[phone] CVR - [facility] Varicose veins of right lower extremity with other complications 4 Keon MIRZA RVT, RPVI Robert. [address] [place] [address], [place] [address], [facility] [place], [id number], [place]. tel:[phone] [facility], [address] [place] [address] Dr Porter [address]Suite Bennie Hassan MD, [id number], [place] tel:[phone] [place] Chronic venous hypertension (idiopathic) with inflammation of right lower extremity 4 Keon MIRZA, RVT, VI Placido. [address] [place] [address], [place], [id number], [place]. tel:[phone] Referring Provider: Placido Herbert MD, RVT, [facility], [address] [place] [address], [place], [address] . tel:[phone] Offic/outpt E&m Estab 5 Min Trial - [facility], [address] [place] [address] Dr Porter [address] 1000Bennie MD, [id number], [place] tel:[phone] [place] Localized edemaCramp and spasmRestless legs syndromeVenou s insufficiency (chronic) (peripheral)P ruritus, unspecified 4 Kyaw Dos Santos. [address] [place] [address], [place], [id number], [place]. tel:[phone] Referring Provider: Margie Paz MD [facility], [address] [place] [address], [facility] 202 - [facility] Physician [facility], [place], [address]. tel:[phone] [facility], [address] [place] [address] Dr [address] 1000Bennie MD, [id number], [place] tel:[phone] CVR - [facility] Chronic venous hypertension (idiopathic) with other complications of bilateral lower extremity 3 Del MIRZA FACS RVT [facility]. [address] [place] [address], [place], [address], [place]. tel:[phone] Referring Provider: Hanny Mathis MD FACS RVT [facility], [address] [place] [address], [facility] [place], [address]. tel:[phone] Office/Oupt E&M New Pt 45 Mins [facility], [address] [place] [address] Dr Porter 1000Suite 1000Bennie MD, [id number], [place] tel:[phone] [place] Localized edemaCramp and spasmRestless legs syndromeChron ic venous hypertension (idiopathic) with other complications of bilateral lower extremityPrur itus, unspecified Del MIRZA FACS T MARISSA Parisi. [address], [address], [place], [address], . tel:[phone] Referring Provider: Hanny ANN, [address], [place], [address]. tel:[phone] Family History Family Member Type Diagnosis Age At Onset No Information Payers Payer name Insurance type Covered republican ID Authornovamora keirydalton(s) Medical Assistance [facility] [id number] [facility] [id number] Social History Type Description Quantity Date [...]
[2024-12-24 15:34] VITALS: BP 102/60; BMI 29.0
--- NOTE | 2024-12-24 15:34 | A.OFFVIS_ITS ---
Vital Signs 12/24/24 15:34 12/24/24 15:40 Height 5 ft 3 in 5 ft 3 in Weight 164 lb 164 lb BMI 29.0 29.0 BP 102/60 110/60 Blood Pressure Location Lt brachial Position Sitting Intake Visit Reasons: AUB Intake Note: 11 day cycle. Allergies pineapple Allergy (Intermediate, Verified 10/31/24 09:37) Anaphylaxis diclofenac Adverse Reaction (Mild, Verified 10/31/24 09:37) Swelling SEASONAL ALLERGIES Allergy (Intermediate, Uncoded 10/03/24 11:18) RUNNY NOSE WATERY ITCHY EYES HPI Comments Details: Patient is here today with abnormal uterine bleeding she reports a recent menstrual cycle lasting up to 11 days. Normally x 3d, now reports it's becoming heavier. She reports cramping at times. History of tubal ligation. UPT is negative. PFS Medical History Acid reflux Sinusitis Lower back pain Asthma Surgical History History of Papanicolaou smear of cervix (~2023) Hx of abdominoplasty Hx of breast implant Hx of laparoscopic gastric banding (~2005) History of tubal ligation (~2003) Family History Mother Schizophrenia Mental health disorder Asthma Father Asthma Sister Substance abuse Social History Household Members: Family Both parents involved: No Caregiver staying overnight: No Housing: House Are you a primary healthcare administrator to a significant other at home: No Do you presently have visiting nurse or other home services: No 75 years or older and lives alone: No Alcohol intake: current Alcohol type: beer and other Comment: Fridays- 3 drinks or 5 beers Patient Tobacco Use Status: Former Tobacco user e-Cigarette/Vaping Use: Never Used service: No Current occupational status: employed 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 Current occupational exposures/hazards: No Cognitive needs: No Hearing needs: No Vision needs: No Female Reproductive History Menstrual Age of Menarche: 14 Duration of menses: >10 days Date of last menstrual period: 12/08/24 control method: permanent sterilization Total pregnancies: 3 Full term: 2 Number of Living Children: 2 Ab spontaneous: 1 History of abnormal pap smear: No History of STI: Yes Date of Mammogram: 07/05/23 History of abnormal mammogram: Yes Review of Systems Const All systems reviewed & are unremarkable except as noted in HPI and below Physical Exam Vital Signs: Last Vital Signs BP 110/60 12/24/24 15:40 BMI result Body Mass Index 29.0 Const General: cooperative, healthy appearing and no acute distress Orientation/consciousness: patient oriented x3 GI Inspection: Yes normal to inspection Palpation (GI): Soft to palpation and Other GI palpation findings present (Nontender) Rectal Exam - Female: visual inspection normal General: Yes bladder normal to palpation External Female Exam: normal appearance of the urethra Speculum Exam - Vagina: normal appearance of the vagina, normal palpation and normal vaginal discharge Speculum Exam - Cervix: normal appearance of the cervix and normal palpation Bimanual exam- vagina & uterus: normal bimanual exam, normal palpation, uterine size normal, bladder normal to palpation, normal palpation, uterine shape normal and non-tender Bimanual Exam- Adnexa, other: normal adnexae and Adnexal mass present (Fullness on the right,? Loop of bowel) on the right Neuro General: patient oriented x3 Results AMB Test Urine AMB Test Urine Negative Last Edit by Nathaly Adams LPN on 12/24/24 15:49 Assessment & Plan Assessment & Plan (1) Pelvic fullness: Code(s): R19.00 - Intra-abdominal and pelvic swelling, mass and lump, unspecified site Category: Medical Plan: Discuss possibilities of pelvic fullness including loop of bowel, ovarian cysts, hydrosalpinx, other. Reviewed pelvic warnings and when to call for any increase in pain or sudden severe pain to report to the emergency room immediately. [id number] medications per manufacture's recommendation if indicated. Follow up pending pelvic ultrasound. The patient expressed understanding and agreement with the plan of care. All of her questions and concerns were addressed to the best of my ability. (2) Abnormal uterine bleeding (AUB): Code(s): N93.9 - Abnormal uterine and vaginal bleeding, unspecified Category: Medical Plan Discussed: Workup for abnormal uterine bleeding to include pelvic ultrasound, GC chlamydia, BV panel, TSH, CBC. Follow up pending test results. Monitor menstrual cycles, report any unscheduled bleeding, bleeding episodes <24 days apart or heavy/prolonged menstrual bleeding. Call the office for a follow up for any concerns. The patient expressed understanding and agreement with the plan of care. All of her questions and concerns were addressed to the best of my ability. This note is constructed using voice recognition software. While every effort has been made to ensure accuracy, stocking and box shop supervisor errors may have been included. Orders: Orders US pelvic and transvaginal Today N93.9 - Abnormal uterine and vaginal bleeding, unspecified, R19.00 - Intra-abdominal and pelvic swelling, mass and lump, unspecified site CT NG by PCR Vag/Cerv Today N93.9 - Abnormal uterine and vaginal bleeding, unspecified Bacterial Vaginosis Panel Today N93.9 - Abnormal uterine and vaginal bleeding, unspecified Complete Blood Count Auto Diff Today N93.9 - Abnormal uterine and vaginal bleeding, unspecified Thyroid Stimulating Hormone Today N92.1 - Excessive and frequent menstruation with irregular cycle, N93.9 - Abnormal uterine and vaginal bleeding, unspecified Coding Level of Care Code Est Pt Level 3 (11654) Diagnoses Pelvic fullness R19.00 Abnormal uterine bleeding (AUB) N93.9
[2024-12-24 15:40] VITALS: BP 110/60; BMI 29.0
--- OUTSIDE RECORDS SUMMARY | 2024-12-24 16:21 | XMS_ITS | Clinical Summary ---
Author Organization [facility] Address [address] [place] [address] Care Team Providers Care Director Of Casework Name Role Phone Emily Syed MD Primary Care Provider [phone] Social History Tobacco Use Types Packs/Day Years [...] (P ap Smear) 10/23/2003 Influenza Vaccine (#1) 2025 Pneumococcal Vaccine Aged Out No long er eligible based on patient's age to complete this topic RSV Ped < 20 months Aged Out No longe r eligible based on patient's age to complete this topic Care Teams Director Of Casework Relationship Specialty Start Date End Date Emily Syed MD [address] [phone] PCP - General Internal Medicine 05/09/19
== END 2024-12-24 17:47 | disposition home or self-care (01) ==
LOC: HO.HWS 15:32
PROVIDERS: PCP Nurse Practitioner Family; Visit Provider Advanced Practice Midwife
DX: R19.00 Intra-abdominal and pelvic swelling, mass and lump, unspecified site (principal); N93.9 Abnormal uterine and vaginal bleeding, unspecified
CPT/HCPCS: 99213

== ENCOUNTER 2024-12-24 15:32 | Outpatient (REF) | payer OTHER, SELFPAY ==
[2024-12-24 16:14] LABS: MANUAL DIFF FLAG NO
[2024-12-24 17:11] LABS: Hematocrit 36.1 % (37.0-47.0); Hemoglobin 11.8 g/dl (12.0-16.0); Imm Gran Abs Auto 0.02 X10*3/uL (0.00-0.03); Imm Gran Pct Auto 0.3 % (0.0-0.4); Lymphocytes Absolute Auto 2.1 X10*3/uL (1.2-4.9); Mean Corpuscular HGB Conc 32.7 g/dl (31.0-35.0); Mean Corpuscular Hemoglobin 30.9 pg (27.0-33.0); Mean Corpuscular Volume 94.5 fL (80.0-98.0); NRBC Abs Auto 0.000 X10*3/uL (0.0-0.012); NRBC Pct Auto 0.0 /100WBC (0.0-0.2); Platelet Count 412 X10*3/uL (160-400); Red Blood Count 3.82 X10*6/uL (4.20-5.50); White Blood Count 6.6 X10*3/uL (4.8-10.8)
[2024-12-24 17:54] LABS: Thyroid Stimulating Hormone 2.93 uIU/mL (0.32-4.0)
[2024-12-24 18:31] LABS: Bacterial Vaginosis PCR NEGATIVE (Negative); Candida Group PCR NOT DETECTED (Not Detect); Candida glab krusei PCR NOT DETECTED (Not Detect); Trichomonas vaginalis PCR NOT DETECTED (Not Detect)
[2024-12-24 19:02] LABS: CT PCR NOT DETECTED (Not Detect.); NG PCR NOT DETECTED (Not Detect.)
== END 2024-12-24 15:33 | disposition home or self-care (01) ==
LOC: HO.LAB 15:32
PROVIDERS: PCP Nurse Practitioner Family; Visit Provider Advanced Practice Midwife
DX: N93.9 Abnormal uterine and vaginal bleeding, unspecified (principal); N92.1 Excessive and frequent menstruation with irregular cycle; R19.00 Intra-abdominal and pelvic swelling, mass and lump, unspecified site
CPT/HCPCS: 36415; 81515; 84443; 85025; 87491; 87591; 99212

== ENCOUNTER 2024-12-26 10:40 | Outpatient (AMB) | payer OTHER, SELFPAY ==
--- OUTSIDE RECORDS SUMMARY | 2023-10-10 09:30 | XMS_ITS | Continuity of Care Document ---
Author Organization [facility] Address [address] [place] [address] Phone Care Team Providers Care Student Finance Advisor Name Role Phone Keon MIRZA, RVT, MARISSA, Placido Unavailable U navailable Procedures Procedure Date Office/Outpt E&M Established 10 Mins- CT & [place] Duplex Scan-extrem Veins; Comp- CT & [place] Duplex Scan-extrem Veins; Uni/ CT & [place] A Endovenous Laser, 1st Vein- CT & [place] Endovenous Laser, 1st Vein- CT & [place] Inj Scleros Solut; Mx Veins 1- CT & [place] A Ultrason Guidan Needle Bx-rad- CT & MA A Duplex Scan-extrem Veins; Uni/ 24 Endovenous Laser, 1st Vein Endovenous Laser, 1st Vein Inj Scleros Solut; Mx Veins 1 4 Ultrason Guidan Needle Bx-rad 4 Offic/outpt E&m Estab 5 Min Trial - Tele medicine Duplex Scan-extrem Veins; Comp Office/Oupt E&M New Pt 45 Mins Advance Directives Directive Yes / No Effective Date File Name No Information Encounters Encounter Description Practice Location Reason(s) For Visit Diagnoses Date Provider Providers Copied on Encounter Office/Outpt E&M Established 10 Mins- CT & [place] [facility] [facility], [address] [place] [address] Dr Porter [address] [place]ie Hassan [place], [id number], [place] tel:[phone] CV[place] Pruritus, unspecifiedCh ronic venous hypertension (idiopathic) with other complications of bilateral lower extremityRest less legs syndrome 0 4 Keon MIRZA RVT, RPVI Robert. [address] [place] [address], [place], [id number], [place]. tel:[phone] [place] [facility], [address] [place] [address] Dr Porter [address]ie [place], [id number], [place] tel:[phone] CV[place] Pain in right legPain in left leg 4 Keon MIRZA RVT, RPVI Robert. [address] [place] [address], [place], [id number], [place]. tel:[phone] Referring Provider: Placido Herbert MD, RVT, RPVI, [address] [place] [address], [place], [address] . tel:[phone] [facility], [address] [place] [address] Dr [address] Bennie Hassan [place], [id number], [place] tel:[phone] [place] Encounter for follow-up examination after completed treatment for conditions other than malignant neoplasmChron ic venous hypertension (idiopathic) with other complications of left lower extremity 0 4 Keon MIRZA RVT, RPVI Robert. [address] [place] [address], [place], [id number], [place]. tel:[phone] Referring Provider: Placido Herbert MD, RVT, MARISSA, [address] [place] [address], [place], [address] . tel:[phone] [facility], [address] [place] [address] Dr [address] Bennie Hassan [place], [id number], [place] tel:[phone] [place] Chronic venous hypertension (idiopathic) with inflammation of left lower extremity Apr-0 4 Keon MIRZA RVT, RPVI Robert. [address] [place] [address], Suite [facility] [place], [id number], [place]. tel:[phone] [facility], [address] [place] [address] Dr [address] Bennie Hassan [place], [id number], [place] tel:[phone] [place] Chronic venous hypertension (idiopathic) with inflammation of left lower extremity Apr-0 4 Keon MIRZA RVT, RPVI Robert. [address] [place] [address], Suite [facility], [facility] [place], [id number], [place]. tel:[phone] Referring Provider: Placido Herbert MD, RVT, MARISSA, [address] [place] [address] Suite [facility], [facility] [place], [address] . tel:[phone] [facility], [address] [place] [address] Dr [address] [facility] [place], [id number], [place] tel:[phone] [place] Encounter for follow-up examination after completed treatment for conditions other than malignant nePain in right leg 4 Keon MIRZA RVT, RPVI Robert. [address] [place] [address], [facility] [place], [id number], [place]. tel:[phone] Referring Provider: Placido Herbert MD, RVT, MARISSA, [address] [place] [address], [facility] [place], [address] . tel:[phone] [facility], [address] [place] [address] Dr [address] 1000[place]ie [place], [id number], [place] tel:[phone] CVR - [facility] Varicose veins of right lower extremity with other complications 4 Keon MIRZA RVT, RPVI Robert. [address] [place] [address], [place] [address], [facility] [place], [id number], [place]. tel:[phone] [facility], [address] [place] [address] Dr [address] Bennie Hassan [place], [id number], [place] tel:[phone] [place] Chronic venous hypertension (idiopathic) with inflammation of right lower extremity 4 Keon MIRZA, RVT, VI Placido. [address] [place] [address], [place], [id number], [place]. tel:[phone] Referring Provider: Placido Herbert MD, RVT, [facility], [address] [place] [address], [place], [address] . tel:[phone] Offic/outpt E&m Estab 5 Min Trial - [facility]icine [facility], [address] [place] [address] Dr [address]ie [place], [id number], [place] tel:[phone] [place] Localized edemaCramp and spasmRestless legs syndromeVenou s insufficiency (chronic) (peripheral)P ruritus, unspecified 4 Kyaw Dos Santos. [address] [place] [address], [place], [id number], [place]. tel:[phone] Referring Provider: Margie Paz MD [facility], [address] [place] [address], [facility] 202 - [facility] Physician [facility] [place], [place], [address]. tel:[phone] [facility], [address] [place] [address] Dr [address] 1000[place]ie [place], [id number], [place] tel:[phone] CVR - [facility] Chronic venous hypertension (idiopathic) with other complications of bilateral lower extremity 3 Del MIRZA FACS RVT [facility] Parisi. [address] [place] [address], [place], [address], [place]. tel:[phone] Referring Provider: Hanny Mathis MD FACS RVT [facility], [address] [place] [address], [facility] [place], [address]. tel:[phone] Office/Oupt E&M New Pt 45 Mins [facility], [address] [place] [address] Dr [address] 1000[place]ie [place], [id number], [place] tel:[phone] [place] Localized edemaCramp and spasmRestless legs syndromeChron ic venous hypertension (idiopathic) with other complications of bilateral lower extremityPrur itus, unspecified Del MIRZA FACS T MARISSA Parisi. [address], [address], [place], [address], . tel:[phone] Referring Provider: Hanny ANN, [address], [place], [address]. tel:[phone] Family History Family Member Type Diagnosis Age At Onset No Information Payers Payer name Insurance type Covered libertarian ID Authornovamora keirydalton(s) Medical Assistance [facility] [id number] [facility] [id number] Social History Type Description Quantity Date Captured Comments Alcohol Use Details Unknown Caffeine Use Details Unknown Tobacco Use Status Current non-smoker Smoking Status Never Smoker Non-Smoking Tobacco Use Details : No Details Available : No Details Available Sex Female Vital Signs Date / Time: Height Weight BMI Pulse Rate Blood Pressure Temperature Respiratory Rate Body Surface Area Head Circumference Head Circ. Percentile Wt./Edson. Percentile BMI percentile Pulse Ox Inhaled Ox 81.650 kg (180.00 lbs) 31.9 3 kg/m eter (2) 110/70 mm[Hg] Chief Complaint And Reason For Visit No Information Reason For Referral Reason For Referral No Information Plan Of Treatment Date Type Action Status Goal Diet education completed Goal Diet education completed Referral Ordered: Weight management: Referral to physician timeframe: 3 Months (related to Body mass index (BMI) 31.0-31.9, adult) ordered Referral Ordered: Weight management: Referral to physician timeframe: 3 Months (related to Body mass index (BMI) 31.0-31.9, adult) ordered History Of Present Illness Encounter Date Complaint History Of Prese nt Illness No Information Functional Status Date Functional Assessmen t No Information Instructions Date Instruction Additional Infor mation Diet education Related to Body mass index (BMI) 31.0-31.9, adult Giving Encouragement to exercise Related to Body mass index (BMI) 31.0-31.9, adult Lifestyle education Related to B debra mass index (BMI) 31.0-31.9, adult Patient education booklet given Related to Chronic venous hypertension (idiopathic) with other complications of bilateral lower extremity Patient education booklet given Related to Localized edema Diet education Related to Body mass index (BMI) 31.0-31.9, adult Giving Encouragement to exercise Related to Body mass index (BMI) 31.0-31.9, adult Lifestyle education Related to B debra mass index (BMI) 31.0-31.9, adult Patient education booklet given Related to Localized edema Pre and post instruc tions reviewed and provided Related to Localized edema Assessments Type Assessment Date assessment Pruritus, unspecified assessment Chronic venous hyper tension (idiopathic) with other complications of bilateral lower extremity assessment Restless legs syndrome Patient Care Teams Name Effective Dates (start - stop) Status Members No Information
--- NOTE | 2024-12-26 10:44 | A.OFFVIS_ITS ---
Vital Signs 3 12/26/24 10:47 Height 5 ft 3 in Weight 173 lb BMI 30.6 BP 111/64 Blood Pressure Location Rt brachial Position Sitting Pulse 68 Pulse Source Pulse Oximeter Pulse Oximetry (%) 100 Oxygen Delivery Method Room Air Intake Visit Reasons: s/p mateus Theraputic L3-L4-DR-L5 MBB Intake Note: Pain today 5/10 Salesperson Used Cars Required: No Accompanied by: Self / Same As Patient Allergies pineapple Allergy (Intermediate, Verified 12/26/24 10:48) Anaphylaxis diclofenac Adverse Reaction (Mild, Verified 12/26/24 10:48) Swelling SEASONAL ALLERGIES Allergy (Intermediate, Uncoded 10/03/24 11:18) RUNNY NOSE WATERY ITCHY EYES HPI Comments Details: The patient is a 44-year-old female presenting for evaluation of response to therapeutic bilateral L3-L4-L5 medial branch blocks. She reports chronic low back pain with a baseline pain level of 9 out of 10 prior to the procedure. Following the procedure, her pain level decreased to 5 out of 10, indicating approximately 40-50% pain relief. She denies significant radiation of pain to her legs. 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 Due to pain, she finds it difficult to engage in regular home exercise program and finds no improvement with recent PT at [facility]. Denies any fever, chills, abdominal or groin pain, weakness, bladder or bowel dysfunction or saddle anesthesia. The patient has been using Ibuprofen daily to manage her symptoms. She has not noticed any improvement in sleep, walking, or range of motion since the procedure. Patient is interested to proceed with Sprint PNS trial for axial low back pain. Past Procedures: 11/28/24: Bilateral Therapeutic L3-L4 DR L5 MBB- 40-50% ongoing pain relief 10/03/24: Bilateral Diagnostic L3-L4 DR L5 MBB- 80% pain relief for >3 weeks PRIOR: Patient presents today for follow up to discuss recent lumbar spine MRI results. She continues to endorse lower back pain with bilateral radiculopathy and numbness and tingling in her toes, worse in big toes bilaterally. Patient also reports she lost her balance last week and fell. Reports increased back and left knee pain and occasional right knee pain. She reports axial low back pain has been worse than radicular pain. She is interested to proceed with diagnostic lumbar medial branch blocks to confirm axial low back pain. Denies any recent cough, cold, infection, fever, foot drop, bladder or bowel dysfunction, saddle anesthesia or any other significant changes in medical history since last office visit. [facility] old records were reviewed and noted for Caudal JAMES injections on 04/08/2015 and 06/17/[address] Foss for CLBP and LE pain with good pain relief. PRIOR: Patient is a pleasant 43 years old female with history of lower back pain, left shoulder, bilateral breast reduction with implants and abdominoplasty (07/2023), lumbar degenerative disc disease with facet arthropathy at L5-S1, presents today for initial evaluation of lower back pain with radicular symptoms and left knee pain. Knee pain has been present for 6 months, back pain for over 10 years. Denies any recent trauma, injury or falls. Reports mechanical fall downstairs over 10 years which worsened back pain. She has been seen at [facility] and received injections in 2016 with good relief. Patient also went to [facility] [place] few months ago and completed lumbar spine and knee xray but had no injections. She is currently in physical therapy at [facility]. Back pain is axial and also significantly increases with flexing or bending forward with reproduction of pain on right side. She also reports anterior left knee pain with walking, climbing stairs or cold weather. 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 Denies any fever or chills, abdominal or groin pain, weakness, bladder or bowel dysfunction or saddle anesthesia. Oswestry Low Back Disability Score=21 (moderate disability) Location: Lower back radiates down bilateral legs; left knee worse Duration: Chronic pain for >10 years ago, h/o mechanical fall downstairs Characteristics of symptom or complaint: Aching, numbness, sharp, shooting, radiating, tingling, burning, sore Aggravating or associated factors: Prolonged standing, ADLs, movements, walking, climbing stairs, cold weather Relieving factors: Ibuprofen, laying flat, heating pad, Tylenol, rest, activity modifications Treatment: PT at [facility], lumbar and knee xrays; h/o injections at [facility] Medical History Abnormal uterine bleeding (AUB) Pelvic fullness Acid reflux Sinusitis Lower back pain Asthma Surgical History History of Papanicolaou smear of cervix (~2023) Hx of abdominoplasty Hx of breast implant Hx of laparoscopic gastric banding (~2005) History of tubal ligation (~2003) Family History Mother Schizophrenia Mental health disorder Asthma Father Asthma Sister Substance abuse Social History Household Members: Family Both parents involved: No Caregiver staying overnight: No Housing: House Are you a primary rn acute care to a significant other at home: No Do you presently have visiting nurse or other home services: No 75 years or older and lives alone: No Alcohol intake: current Alcohol type: beer and other Comment: Fridays- 3 drinks or 5 beers Patient Tobacco Use Status: Former Tobacco user e-Cigarette/Vaping Use: Never Used service: No Current occupational status: employed 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 Alert and oriented. Mood and affect appropriate. Follows and participates in conversation appropriately. Respiratory effort is unlabored. No cough. Able to transition from sit to stand unassisted. Ambulates with bilaterally normal heel strike and toe off. General: Yes no CVA tenderness Back/Spine/Pelvis Other: Lumbar flexion reproduces mild pain, extension and axial rotations reproduces mild to moderate pain. Demonstrates 5/5 strength of quadriceps bilaterally as well as flexion/dorsiflexion of bilateral feet against resistance. 2+ pedal pulses bilaterally. Straight leg rise with dorsiflexion negative bilaterally. +2 patellar and achilles reflexes bilaterally. Facet loading test positive bilaterally. Maris sign positive bilateraly. David?s and Stinchfield tests are negative bilaterally. No groin pain with I/E hip rotations. Valsalva maneuver negative. Back: no CVA tenderness Cervical Spine: cervical ROM normal and No Cervical spine tenderness Thoracic/Lumbar Spine: thoracic and lumbar spine normal to inspection, No Thoracic/lumbar spine scar(s), Lasegue's sign negative, straight leg raise negative bilaterally, pain with thoraco-lumbar ROM, paraspinal muscle tenderness, thoraco-lumbar ROM limited, No thoracic spinal tenderness and No lumbar spinal tenderness Sacroiliac joints: bilaterally (+David's) tender to palpation (minimal) Results Reviewed Results Reviewed: MR LUMBAR SPINE WITHOUT CONTRAST 06/18/24 CLINICAL INFORMATION: Spondylosis with radiculopathy. COMPARISON: Lumbar spine x-ray 01/02/2016 FINDINGS: There is normal lumbar lordosis. The vertebral heights and alignment is normal. The T12-L1, L1-2, L2-3 disc levels are unremarkable. At L3-4 disc level there is minimal disc bulge flattening slightly eccentric to the right with mild flattening of ventral thecal sac without spinal canal stenosis. There is mild narrowing of right lateral recess and proximal neural foramina. The left neural foramina appear patent. At L4-5 disc level there is no significant disc bulge, herniation or spinal canal stenosis. The neural foramina are patent in spite of mild facet joint arthropathy and minimal hypertrophy. At L5-S1 disc level there is no significant disc bulge, herniation or spinal canal stenosis. The neural foramina are patent bilaterally. Incidentally noted is a central disc herniation at T11-T12 disc level with minimal AP canal narrowing. Conus medullaris terminates at T12-L1 disc level and appears normal in morphology. IMPRESSION: Mild disc bulge eccentric to the right resulting in moderate right inferolateral recess and neural foraminal narrowing at the L3-4 disc level. Incidental finding of central disc herniation at T11-12 disc level without spinal canal stenosis. Assessment & Plan Assessment & Plan (1) Lumbar spondylosis: Code(s): M47.816 - Spondylosis without myelopathy or radiculopathy, lumbar region Category: Medical (2) Chronic low back pain: Code(s): M54.50 - Low back pain, unspecified; G89.29 - Other chronic pain Category: Medical (3) Lumbar degenerative disc disease: Code(s): M51.369 - Other intervertebral disc degeneration, lumbar region without mention of lumbar back pain or lower extremity pain Category: Medical Plan The patient experienced a 50% reduction in pain following bilateral L3-L4-L5 medial branch blocks, but this level of relief does not meet the criteria for insurance approval for repeat procedures. We discussed the option of peripheral nerve stimulation using the Sprint system as a potential next step. The patient expressed interest in proceeding with the Sprint procedure, starting with the right side where she experiences more pain. We also reviewed radiofrequency ablation RFA as back up option. Schedule bilateral L3 medial branch Sprint PNS placement with local,oral sedation and fluoroscopy. Expectations, risks and benefits were reviewed. Patient is aware she will be contacted to schedule this procedure. All questions and concerns have been been answered and patient agreed with the plan. Follow up after Sprint PNS placement and sooner as needed. Patient was informed and verbally consented to the use of an ambient scribe for clinic note documentation during this visit. Coding Level of Care Code Est Pt Level 4 (05047) Complex EM visit Add On G2211 Diagnoses Lumbar spondylosis M47.816 Chronic low back pain M54.50; G89.29 Lumbar degenerative disc disease M51.369
[2024-12-26 10:47] VITALS: BP 111/64; PULSE 68; O2SAT 100; BMI 30.6
--- OUTSIDE RECORDS SUMMARY | 2024-12-26 11:33 | XMS_ITS | Clinical Summary ---
Author Organization [facility] Address [address] [place] [address] Care Team Providers Care Boat Wrapper Name Role Phone Emily Syed MD Primary [...] age to complete this topic Care Teams Boat Wrapper Relationship Specialty Start Date End Date Emily Syed MD [address] [phone] PCP - General Internal Medicine 05/09/19
== END 2024-12-26 11:15 | disposition home or self-care (01) ==
LOC: HO.PMC 10:41
PROVIDERS: PCP Nurse Practitioner Family; Visit Provider Nurse Practitioner Family
DX: M47.816 Spondylosis without myelopathy or radiculopathy, lumbar region (principal); M54.50 Low back pain, unspecified; G89.29 Other chronic pain; M51.369 Other intervertebral disc degeneration, lumbar region without mention of lumbar back pain or lower extremity pain
CPT/HCPCS: 99214; G2211

== ENCOUNTER → 2024-12-26 10:40 | Outpatient (BNVA) | payer OTHER, SELFPAY | PROVIDERS: PCP Nurse Practitioner Family; Visit Provider Nurse Practitioner Family | DX: M54.50 Low back pain, unspecified (principal); G89.29 Other chronic pain; M47.816 Spondylosis without myelopathy or radiculopathy, lumbar region; M51.369 Other intervertebral disc degeneration, lumbar region without mention of lumbar back pain or lower extremity pain | CPT/HCPCS: 99212 ==

== ENCOUNTER 2025-01-23 06:13 | Outpatient (REF) | payer OTHER, SELFPAY ==
--- OUTSIDE RECORDS SUMMARY | 2023-10-10 09:30 | XMS_ITS | Continuity of Care Document ---
Author Organization [facility] Address [address] [place] [address] Phone Care Team Providers Care Shoulder Boner Name Role Phone Keon MIRZA, RVT, MARISSA, [...] E&M Established 10 Mins- CT & [place] [facility], [address] [place] [address] Dr Porter [address]Suite Bennie Hassan MD, [id number], [place] tel:[phone] [place] Pruritus, unspecifiedCh ronic venous hypertension (idiopathic) with other complications of bilateral lower extremityRest less legs syndrome 0 4 Keon MIRZA RVT, RPVI Robert. [address] [place] [address], [place], [id number], [place]. tel:[phone] [place] [facility], [address] [place] [address] Dr Porter 1000Suite 1000Bennie MD, [id number], [place] tel:[phone] [place] Pain in right legPain in left leg 4 Keon MIRZA RVT, RPVI Robert. [address] [place] [address], [place], [id number], [place]. tel:[phone] Referring Provider: Placido Herbert MD, RVT, RPVI, [address] [place] [address], [place], [address] . tel:[phone] [facility], [address] [place] [address] Dr Porter [address]Suite Bennie Hassan MD, [id number], [place] tel:[phone] [place] Encounter for follow-up examination after completed treatment for conditions other than malignant neoplasmChron ic venous hypertension (idiopathic) with other complications of left lower extremity 0 4 Keon MIRZA RVT, RPVI Robert. [address] [place] [address], [place], [id number], [place]. tel:[phone] Referring Provider: Placido Herbert MD, RVT, MARISSA, [address] [place] [address], [place], [address] . tel:[phone] iDvina [facility], [address] [place] [address] Dr Porter 1000Suite Bennie Hassan MD, [id number], [place] tel:[phone] [place] Chronic venous hypertension (idiopathic) with inflammation of left lower extremity Apr-0 4 Keon MIRZA RVT, RPVI Robert. [address] [place] [address], Suite [facility] [place], [id number], [place]. tel:[phone] [facility], [address] [place] [address] Dr Porter [address]Suite Bennie Hassan MD, [id number], [place] tel:[phone] CV[place] - [place] Chronic venous hypertension (idiopathic) with inflammation of left lower extremity Apr-0 4 Keon MIRZA RVT, RPVI Robert. [address] [place] [address], Suite [facility], [facility] [place], [id number], [place]. tel:[phone] Referring Provider: Placido Herbert MD, RVT, MARISSA, [address] [place] [address] Suite [facility], [facility] [place], [address] . tel:[phone] [facility], [address] [place] [address] Dr Porter [address] Bennie Hassan MD, [id number], [place] tel:[phone] [place] Encounter for follow-up examination after completed treatment for conditions other than malignant nePain in right leg 4 Keon MIRZA RVT, RPVI Robert. [address] [place] [address], [facility] [place], [id number], [place]. tel:[phone] Referring Provider: Placido Herbert MD, RVT, MARISSA, [address] [place] [address], [facility] [place], [address] . tel:[phone] [facility], [address] [place] [address] Dr Porter 1000Suite 1000Bennie MD, [id number], [place] tel:[phone] CVR - [facility] Varicose veins of right lower extremity with other complications 4 Keon MIRZA RVT, RPVI Robert. [address] [place] [address], [place] [address], [facility] [place], [id number], [place]. tel:[phone] [facility], [address] [place] [address] Dr Porter [address]Suite Bennie Hassan MD, [id number], [place] tel:[phone] [place] Chronic venous hypertension (idiopathic) with inflammation of right lower extremity 4 Keon MIRZA, RVT, VI Placido. [address] [place] [address], [place], [id number], [place]. tel:[phone] Referring Provider: Placido Herbert MD, RVT, [facility], [address] [place] [address], [place], [address] . tel:[phone] Offic/outpt E&m Estab 5 Min Trial - Telemedicine [facility], [address] [place] [address] Dr Porter 1000Suite 1000Bennie MD, [id number], [place] tel:[phone] [place] Localized edemaCramp and spasmRestless legs syndromeVenou s insufficiency (chronic) (peripheral)P ruritus, unspecified 4 Kyaw Dos Santos. [address] [place] [address], [place], [id number], [place]. tel:[phone] Referring Provider: Margie Paz MD [facility], [address] [place] [address], [facility] 202 - [facility] Physician [facility], [place], [address]. tel:[phone] [facility], [address] [place] [address] Dr Porter 1000Suite 1000Bennie MD, [id number], [place] tel:[phone] CVR - [facility] Chronic venous hypertension (idiopathic) with other complications of bilateral lower extremity 3 Del MIRZA FACS RVT [facility]. [address] [place] [address], [place], [address], [place]. tel:[phone] Referring Provider: Hanny Mathis MD FACS RVT [facility], [address] [place] [address], [facility] [place], [address]. tel:[phone] Office/Oupt E&M New Pt 45 Mins [facility], [address] [place] [address] Dr Porter 1000Suite 1000Bennie MD, [id number], [place] tel:[phone] [place] - [place] Localized edemaCramp and spasmRestless legs syndromeChron ic venous hypertension (idiopathic) with other complications of bilateral lower extremityPrur itus, unspecified Del MIRZA FACS T MARISSA Parisi. [address], [address], [place], [address], . tel:[phone] Referring Provider: Hanny ANN, [address], [place], [address]. tel:[phone] Family History Family Member Type Diagnosis Age At Onset No Information Payers Payer name Insurance type Covered democrat ID Authornovamora keirydalton(s) Medical Assistance [facility] [id number] [facility] [id number] Social History Type Description Quantity Date [...] Information Instructions Date Instruction Additional Infor mation Patient education booklet given Related to Chronic venous hypertension (idiopathic) with other complications of bilateral lower extremity Lifestyle education Related to B debra mass index (BMI) 31.0-31.9, adult Giving Encouragement to exercise Related to Body mass index (BMI) 31.0-31.9, adult Diet education Related to Body mass index (BMI) 31.0-31.9, adult Patient education booklet given Related to Localized edema Pre and post instruc tions reviewed and provided Related to Localized edema Patient education booklet given Related to Localized edema Lifestyle education Related to B debra mass index (BMI) 31.0-31.9, adult Giving Encouragement to exercise Related to Body mass index (BMI) 31.0-31.9, adult Diet education Related to Body mass index (BMI) 31.0-31.9, adult Assessments Type Assessment Date assessment Pruritus, unspecified assessment Chronic venous hyper tension (idiopathic) with other complications of bilateral lower extremity assessment Restless legs syndrome 24 Patient Care Teams Name Effective Dates (start - stop) Status Members No Information
--- NOTE | ~2025-01-23 | FL_ITS ---
EXAMINATION: XR FLUOROSCOPY WITH IMAGES CLINICAL INFORMATION: Lumbar pain management procedure. COMPARISON: None available. TECHNIQUE: Fluoroscopy provided to: Dr. Nguyen Fluoroscopy time: 31 seconds DAP: 1.4285 Gycm2 Images: 3 FINDINGS: 3 fluoroscopic spot images obtained of the lumbar spine during pain management procedure. Please refer to the full procedural report for details. FL/FL guidance in treatment room IMPRESSION: Fluoroscopic guidance. Electronically signed by: Levon Galeas MD 01/24/2025 11:48 AM EDT
--- OUTSIDE RECORDS SUMMARY | 2025-01-23 06:15 | XMS_ITS | Clinical Summary ---
Author Organization [facility] Address [address] [place] [address] Care Team Providers Care Human Resources Office Assistant Name Role Phone Emily Syed MD Primary [...] age to complete this topic Care Teams Human Resources Office Assistant Relationship Specialty Start Date End Date Emily Syed MD [address] [phone] PCP - General Internal Medicine 05/09/19
== END 2025-01-23 06:14 | disposition home or self-care (01) ==
LOC: CF 06:13
PROVIDERS: Visit Provider Internal Medicine
DX: M47.816 Spondylosis without myelopathy or radiculopathy, lumbar region (principal)
CPT/HCPCS: 64635; 64636; J2003; J2795

== ENCOUNTER 2025-01-23 12:24 | Outpatient (AMB) | payer OTHER, SELFPAY ==
[2025-01-23 12:31] VITALS: BP 106/67; PULSE 77; RESP 16; O2SAT 96; BMI 29.9
--- NOTE | 2025-01-23 12:31 | A.OFFVIS_ITS ---
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 Denies any recent cough, cold, infection, fever or other significant changes in medical history since last office visit. [facility] Medical History Abnormal uterine bleeding (AUB) Pelvic fullness Acid reflux Sinusitis Lower back pain Asthma Surgical History History of Papanicolaou smear of cervix (~2023) Hx of abdominoplasty Hx of breast implant Hx of laparoscopic gastric banding (~2005) History of tubal ligation (~2003) Family History Mother Schizophrenia Mental health disorder Asthma Father Asthma Sister Substance abuse Social History Household Members: Family Both parents involved: No Caregiver staying overnight: No Housing: House Are you a primary home health care physician to a significant other at home: No Do you presently have visiting nurse or other home services: No 75 years or older and lives alone: No Alcohol intake: current Alcohol type: beer and other Comment: Fridays- 3 drinks or 5 beers Patient Tobacco Use Status: Former Tobacco user e-Cigarette/Vaping Use: Never Used service: No Current occupational status: employed 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 Current occupational exposures/hazards: No Cognitive needs: No Hearing needs: No Vision needs: No Female Reproductive History Menstrual Age of Menarche: 14 Physical Exam Vital Signs: Last Vital Signs Pulse 77 01/23/25 12:31 Resp 16 01/23/25 12:31 BP 106/67 01/23/25 12:31 Pulse Ox 96 01/23/25 12:31 Oxygen Delivery Method Room Air 01/23/25 12:31 BMI result Body Mass Index 29.9 Office Procedures Details: Radiofrequency lesioning medial branch nerves, Left L3, L4 medial branches and L5 dorsal ramus (L4/5 and L5/S1) (2 levels, 3 nerves) After obtaining written consent, pre-procedure blood pressure and heart rate were stable and recorded in the nursing record. Standard monitors were applied. The patient was placed in the prone position. The lumbar area was prepped with chloraprep and draped in sterile fashion. The skin over the target for each medial branch nerve was anesthetized with 0.5% lidocaine. An 18 gauge radiofrequency cannula was advanced to each target site under fluoroscopic guidance. No paresthesias were elicited with needle placement and aspiration was negative for heme and CSF. Impedences were verified under 600 ohms. Motor testing (2 Hz) confirmed needle placement at each site within the appropriate voltage thresholds. Each site was injected with 0.5 ml 2% preservative-free lidocaine. Radiofrequency lesioning was performed for 90 seconds at 80 deg Celcius. Each site was then injected with 0.5ml 2% lidocaine. The needle was removed, skin cleansed and a sterile bandage was applied. The patient tolerated the procedure well and no complications were encountered. Following the procedure the patient's vital signs were stable. The patient was discharged home in good condition with post-procedural instructions. Time Out: Immediately prior to the procedure, the following was verbally confirmed that there is a signed consent form and that the correct patient, planned procedure, site and side are consistent with documentation and that necessary equipment and/or blood products are available prior to the start of the case. Complications: none EBL: <5 cc 50739 - RFA Lumbar Medial Branches 90598 - Lumbar Medial Branches ADDNL Procedure code (CPT) selection complete Office Meds lidocaine (PF) 10 mg/mL (1 %) injection solution Performing Provider: Kavita Madrigal APRN, COLLEEN Performing Location: [facility] Administered by: Gustavo Nguyen MD on 01/23/25 13:35 Dose Route Admin Location Dispensed Lot Number Expiration Date NDC Buncher Operator 10 mL subcut 10 mL Total Dispensed Waste 10 mL 0 % Assessment & Plan Assessment & Plan (1) Lumbar spondylosis: Code(s): M47.816 - Spondylosis without myelopathy or radiculopathy, lumbar region Category: Medical Plan Patient is status post left L3, L4 medial branches and L5 dorsal ramus radiofrequency ablation. Patient tolerated procedure well and was discharged home in stable condition with discharge instructions. All questions were answered. We will follow-up via telephone or in clinic to assess response to therapy. A follow-up appointment was made during today's visit. Orders: Orders AMB RFA Radiofrequency Ablation Pain Management Today M47.816 - Spondylosis without myelopathy or radiculopathy, lumbar region FL guidance in treatment room Today M47.816 - Spondylosis without myelopathy or radiculopathy, lumbar region Medications: New oxycodone take 30 minutes prior to arrival for procedure 10 mg PO ONCE PRN 1 tab 0RF pain 1 day diazepam (Valium) please take 30minutes prior to arrival for procedure 5 mg PO ONCE PRN 1 tab 0RF sleep Coding Level of Care Code Procedure Only Diagnoses Lumbar spondylosis M47.816 CPT Codes Radiofrequency Ablation - Rad-Ablation 3: 47950 - RFA Lumbar Medial Branches ([id number]) Radiofrequency Ablation - Rad-Ablation 4: 36551 - Lumbar Medial Branches ADDNL ([id number])
== END 2025-01-23 13:49 | disposition home or self-care (01) ==
LOC: HO.PMCPRC 12:24
PROVIDERS: PCP Nurse Practitioner Family; Visit Provider Internal Medicine
DX: M47.816 Spondylosis without myelopathy or radiculopathy, lumbar region (principal)
CPT/HCPCS: 64635; 64636

== ENCOUNTER 2025-01-31 15:46 | Outpatient (REF) | payer OTHER, SELFPAY ==
--- OUTSIDE RECORDS SUMMARY | 2023-10-10 09:30 | XMS_ITS | Continuity of Care Document ---
Author Organization [facility] Address [address] MD [place] [address] Phone Care Team Providers Care Needle Loom Operator Helper Name Role Phone Keon MIRZA, RVT, MARISSA, [...] E&M Established 10 Mins- CT & [place] [facility], [address] [place] [address] Dr Porter 1000Suite Bennie Hassan MD, [id number], [place] tel:[phone] CVR - [place] Pruritus, unspecifiedCh ronic venous hypertension (idiopathic) with other complications of bilateral lower extremityRest less legs syndrome 0 4 Keon MIRZA RVT, RPVI Robert. [address] [place] [address], [place], [id number], [place]. tel:[phone] [place] [facility], [address] [place] [address] Dr Porter 1000Suite 1000Bennie MD, [id number], [place] tel:[phone] CVR - [place] Pain in right legPain in left leg 4 Keon MIRZA RVT, RPVI Robert. [address] [place] [address], [place], [id number], [place]. tel:[phone] Referring Provider: Placido Herbert MD, RVT, RPVI, [address] [place] [address], [place], [address] . tel:[phone] Div[facility], [address] [place] [address] Dr Porter [address]Suite Bennie Hassan MD, [id number], [place] tel:[phone] CV[place] - [place] Encounter for follow-up examination after completed treatment for conditions other than malignant neoplasmChron ic venous hypertension (idiopathic) with other complications of left lower extremity 0 4 Keon MIRZA RVT, RPVI Robert. [address] [place] [address], [place], [id number], [place]. tel:[phone] Referring Provider: Placido Herbert MD, RVT, MARISSA, [address] [place] [address], [place], [address] . tel:[phone] [facility], [address] [place] [address] Dr Porter [address]Suite Bennie Hassan MD, [id number], [place] tel:[phone] CV[place] - [place] Chronic venous hypertension (idiopathic) with inflammation of left lower extremity Apr-0 4 Keon MIRZA RVT, RPVI Robert. [address] [place] [address], Suite [facility], [facility] [place], [id number], [place]. tel:[phone] [facility], [address] [place] [address] Dr Porter [address]Suite Bennie Hassan MD, [id number], [place] tel:[phone] [place] Chronic venous hypertension (idiopathic) with inflammation of left lower extremity Apr-0 4 Keon MIRZA RVT, RPVI Robert. [address] [place] [address], Suite [facility], [facility] [place], [id number], [place]. tel:[phone] Referring Provider: Placido Herbert MD, RVT, MARISSA, [address] [place] [address] Suite [facility], [facility] [place], [address] . tel:[phone] [facility], [address] [place] [address] Dr Porter [address] Bennie Hassan MD, [id number], [place] tel:[phone] [place] Encounter for follow-up examination after completed treatment for conditions other than malignant nePain in right leg 4 Keon MIRZA RVT, RPVI Robert. [address] [place] [address], [facility] [place], [id number], [place]. tel:[phone] Referring Provider: Placido Herbert MD, RVT, MARISSA, [address] [place] [address], [facility] [place], [address] . tel:[phone] [facility], [address] [place] [address] Dr Porter 1000Suite 1000Bennie MD, [id number], [place] tel:[phone] CVR - [facility] Varicose veins of right lower extremity with other complications 4 Keon MIRZA RVT, RPVI Robert. [address] [place] [address], [place] [address], [facility] [place], [id number], [place]. tel:[phone] [facility], [address] [place] [address] Dr Porter 1000Suite Bennie Hassan MD, [id number], [place] tel:[phone] [place] Chronic venous hypertension (idiopathic) with inflammation of right lower extremity 4 Keon MIRZA, RVT, VI Placido. [address] [place] [address], [place], [id number], [place]. tel:[phone] Referring Provider: Placido Herbert MD, RVT, [facility], [address] [place] [address], [place], [address] . tel:[phone] Offic/outpt E&m Estab 5 Min Trial - Telemedicine [facility], [address] [place] [address] Dr Porter 1000Suite 1000Bennie MD, [id number], [place] tel:[phone] [place] Localized edemaCramp and spasmRestless legs syndromeVenou s insufficiency (chronic) (peripheral)P ruritus, unspecified 4 Kyaw Dos Santos. [address] [place] [address], [place], [id number], [place]. tel:[phone] Referring Provider: Margie Paz MD [facility], [address] [place] [address], rust 202 - [facility] Physician [facility], [place], [address]. tel:[phone] [facility], [address] [place] [address] Dr Porter 1000Suite 1000Bennie MD, [id number], [place] tel:[phone] CVR - [facility] Chronic venous hypertension (idiopathic) with other complications of bilateral lower extremity 3 Del MIRZA FACS RVT [facility]. [address] [place] [address], [place], [address], [place]. tel:[phone] Referring Provider: Hanny Mathis MD FACS RVT [facility], [address] [place] [address], [facility] [place], [address]. tel:[phone] Office/Oupt E&M New Pt 45 Mins [facility], [address] [place] [address] Dr Porter 1000Suite 1000Bennie MD, [id number], [place] tel:[phone] [place] Localized edemaCramp and spasmRestless legs syndromeChron ic venous hypertension (idiopathic) with other complications of bilateral lower extremityPrur itus, unspecified Del MIRZA FACS T MARISSA Parisi. [address] [facility] [address], [address], [place], [address], . tel:[phone] Referring Provider: Hanny ANN, [address], [place], [address]. tel:[phone] Family History Family Member Type Diagnosis Age At Onset No Information Payers Payer name Insurance type Covered alliance party ID Authornovamora keirydalton(s) Medical Assistance [facility] [id number] [facility] [id number] Social History Type Description Quantity Date [...]
--- NOTE | ~2025-01-31 | US_ITS ---
EXAMINATION: US PELVIS CLINICAL INFORMATION: R19.00 - Intra-abdominal and pelvic swelling, mass and lump, unspecified COMPARISON: CT performed September 14, 2016 TECHNIQUE: Ultrasound of the pelvis is performed using both transabdominal and transvaginal transducers along with Doppler. Transvaginal imaging is performed due to inadequate visualization transabdominally. FINDINGS: Uterus: The uterus is anteverted and measures 6.1 x 2.5 x 4.0 cm. The double wall endometrial thickness is 4 mm. The uterus has a coarse echotexture. No discrete mass was identified. No visible fibroid. Adnexa: Right ovary measures 2.1 x 3.4 x 1.5 cm. Left ovary is not seen. Left adnexa is obscured by bowel gas. US/US pelvic and transvaginal IMPRESSION: Possible adenomyosis. The uterus is heterogeneous echotexture without a discrete mass. Electronically signed by: Joe Morales MD 01/31/2025 04:27 PM EDT
--- OUTSIDE RECORDS SUMMARY | 2025-01-31 15:48 | XMS_ITS | Clinical Summary ---
Author Organization [facility] Address [address] [place] [address] Care Team Providers Care Developmental Mathematics Professor Name Role Phone Emily Syed MD Primary [...] age to complete this topic Care Teams Developmental Mathematics Professor Relationship Specialty Start Date End Date Emily Syed MD [address] [phone] PCP - General Internal Medicine 05/09/19
== END 2025-01-31 15:47 | disposition home or self-care (01) ==
LOC: HO.US 15:46
PROVIDERS: PCP Nurse Practitioner Family; Visit Provider Advanced Practice Midwife
DX: R19.00 Intra-abdominal and pelvic swelling, mass and lump, unspecified site (principal); N93.9 Abnormal uterine and vaginal bleeding, unspecified
CPT/HCPCS: 76830; 76856

== ENCOUNTER → 2025-01-31 15:48 | Outpatient (BNV) | payer OTHER, SELFPAY | PROVIDERS: PCP Nurse Practitioner Family; Visit Provider Radiology Diagnostic Radiology | DX: R19.00 Intra-abdominal and pelvic swelling, mass and lump, unspecified site (principal) | CPT/HCPCS: 76830; 76856 ==

== ENCOUNTER 2025-02-12 11:49 | Outpatient (AMB) | payer OTHER, SELFPAY ==
--- NOTE | 2025-02-12 11:51 | A.OFFPC_ITS ---
Vital Signs 02/12/25 11:55 Height 5 ft 3 in Weight 174 lb BMI 30.8 BP 105/68 Blood Pressure Location Rt brachial Position Sitting Respiration 12 Pulse 60 Pulse Source Pulse Oximeter Temp 97.1 F Temp Source Oral Pulse Oximetry (%) 99 Oxygen Delivery Method Room Air Intake Visit Reasons: CPE Intake Note: CPE Lead Front Desk Agent Required: No Allergies pineapple Allergy (Intermediate, Verified 02/12/25 11:52) Anaphylaxis diclofenac Adverse Reaction (Mild, Verified 02/12/25 11:52) Swelling SEASONAL ALLERGIES Allergy (Intermediate, Uncoded 02/12/25 11:52) RUNNY NOSE WATERY ITCHY EYES Medication List - Last Reconciled 02/12/25 by Evelyn Buitrago, TELEPHONE INTERVIEWER-BC diazepam (Valium) 5 mg PO ONCE PRN fluticasone furoate 100 mcg/actuation (Arnuity Ellipta) 1 inh inhalation DAILY hydroxyzine HCl 25 mg PO BEDTIME PRN ibuprofen 800 mg PO Q8H PRN ipratropium-albuterol 20-100 mcg/actuation (Combivent Respimat) 1 puff inhalation QID 30 days lidocaine 5% leave on most painful area for up to 12 hrs topical 30 days multivitamin (Multiple Vitamins tablet) 1 tab PO DAILY oxycodone 10 mg PO ONCE PRN 1 day pantoprazole 20 mg PO DAILY paroxetine HCl (Paxil) 10 mg PO DAILY Tobacco use date assessed: 02/12/25 Dental Screening Dental Screen Date: 02/12/25 Did you have a dental visit in the last 12 months?: Yes Did you have a dental problem in the last 6 months where you did not have access to dental care?: No Was dental information given to patient?: Patient has dentist HPI HPI Comments History of Present Illness Details 44 y/o F with obesity, LATONYA, Asthma, L kn ee OA, GERD, chronic back pain, GERD, anemia d/t AUB s/p Radiofrequency lesioning medial branch nerves, Left L3, L4 medial branches and L5 dorsal ramus (L4/5 and L5/S1) (2 levels, 3 nerves), breast reduction & abdominoplasty, tubal, gastric bypass Fhx: Mom 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 - History of asthma, well-controlled wit h Combivent and Arnuity. - Anxiety and depression are managed wit h hydroxyzine and paroxetine; attends weekly therapy. - GERD managed with pantoprazole; sympto ms persistent at night. - BMI is 30.8, difficulty losing additio nal weight despite lifestyle changes. - Reports ongoing uterine bleeding and a nemia; not taking Iron or MVI. Advised to start MVI w/ Iron OTC - [facility] - Will be getting RF treatment to [facility]ina back in the future. Social History - The patient has a physically active lanny gonzalez. - Engages in regular exercise, attending the gym two to three times weekly. - Following a lifestyle change in dietar y habits for approximately three months. - Family life involves a supportive husb and who is pre-diabetic and engaged in lifestyle changes with her. - She has two children, with her tosin medina on medications affecting body weight, and a son who has different dietary preferences. Health Maintenance - Continued therapy for mental [facility]. - Regular monitoring of asthma and GERD management. - Recommendation for multivitamin with i kate for anemia due to uterine bleeding. - Follow-up mammogram scheduled for [facility]. - Monitoring and lifestyle modification for weight management. - Plan to complete labs to screen for di abetes and cholesterol. Review of Systems - Respiratory: Reports stable breathing, nasal allergies, and use of ophthalmic drops for itchy eyes. - Gastrointestinal: Reports persistent n octurnal heartburn despite modifying diet. - Musculoskeletal: Reports being physica lly active and routine gym attendance. - Psychological: Reports mood stability with therapy, manages anxiety and d epression with medications. - Endocrine: Reports unintended weight s tagnation despite lifestyle changes and dietary modifications. - Gynecological: Reports ongoing uterine bleeding and resultant anemia. Physical Exam General: Well developed, well nourished, in no acute distress. Appears stated age. BMI is 30.8. Head: Normocephalic, atraumatic. Eyes: Pupils are equal, round and reactive to light and accommodation. Conjunctivae are clear. Vision grossly normal. P Ears: TMs clear AU, EACS WNL Nose: Patent, without discharge. Neck: Supple, no adenopathy or thyromegaly. Breast: Edu on SBE. Mammogram due in April. Lungs: Clear to auscultation bilaterally. No rales, rhonchi or wheeze noted. Good air flow in all yousif. P Heart: Regular rate and rhythm. No murmurs, click, rubs or gallops are noted. Abdomen: Bowel sounds present in all quadrants. The abdomen is soft, nontender, with no masses or organomegaly noted. No hernias are noted. Patient has GERD and uses pantoprazole. : Deferred. Reviewed DANI & recommendations for routine PATENT ENGINEER. Pulses: Peripheral pulses are equal and palpable bilaterally. Extremities: No clubbing, cyanosis nor edema is noted. Neurologic: Gait and station normal. Cranial Nerves 2-12 intact. Motor strength grossly symmetrical and intact. No sensory loss. Balance normal. Skin: No rashes, ulcers, or lesions noted. Turgor is good. Skin color is good. Hair and nails are without abnormalities. Psych: Normal eye contact, affect and mood appropriate, and normal interactions. Patient is alert and appropriate to context. Results See below Labs from PATENT ENGINEER 12/2024 reviewed. Anemia, Normal TSH Discussion Notes I discussed with the patient the importance of managing her asthma, anxiety, depression, and GERD effectively with her current medications. For GERD, I recommended an increase in pantoprazole dose to 40 mg daily. We addressed her issues with uterine bleeding and anemia, suggesting a switch to a multivitamin containing iron. Regarding weight management, I encouraged her continued healthy lifestyle changes, acknowledging her recent weight loss efforts. I informed her of the need to monitor her asthma, refill her medications, and complete the n ecessary lab work to screen for diabetes and cholesterol. We discussed scheduling her mammogram at the [facility]. I encouraged routine follow-up care to monitor her health status and adjust treatment plans as necessary. Patient was given time to ask questions. All questions were answered to their satisfaction. Assessment and Plan 1. Asthma - Continue Combivent and Arnuity. - Follow up in six months or as needed. 2. Anxiety/Depression - Maintain current medications. - Continue therapy. 3. GERD - Increase pantoprazole to 40 mg daily. 4. Obesity - Encourage lifestyle changes. - Consider bariatric management referral . I do not think this is needed @ this time. 5. Anemia/Uterine Bleeding - Multivitamin with iron recommended. - Follow up with certified physician's assistant. 6. Health Maintenance - Mammogram at [facility]. - Flu shot at pharmacy. - Diabetes and cholesterol labs ordered. Patient Instructions - Continue using your asthma inhalers as prescribed. - Take your anxiety and depression medic ations regularly. - Increase your pantoprazole dose to 40 mg daily. - Make sure your multivitamin contains i kate and take it daily. - Keep exercising and follow your health y diet. - Get your flu shot when you pear picker pre scriptions. - Complete lab tests ordered before leav ing today. - Look out for a call to schedule your m ammogram. - Return for a check-up in six months or earlier if needed. Consent Patient was informed and verbally consented to the use of an ambient scribe for clinic note documentation during this visit. An additional 20 minutes was spent addressing the problem(s) noted at todays visit. This includes time spent before the visit reviewing the chart, time spent during the visit, and time spent after the visit on documentation [facility] Medical History Abnormal uterine bleeding (AUB) Pelvic fullness Acid reflux Sinusitis Lower back pain Asthma Surgical History History of Papanicolaou smear of cervix (~2023) Hx of abdominoplasty Hx of breast implant Hx of laparoscopic gastric banding (~2005) History of tubal ligation (~2003) Family History Mother Schizophrenia Mental health disorder Asthma Father Asthma Sister Substance abuse Social History Household Members: Family Both parents involved: No Caregiver staying overnight: No Housing: House Are you a primary animal care supervisor to a significant other at home: No Do you presently have visiting nurse or other home services: No 75 years or older and lives alone: No Alcohol intake: current Alcohol type: beer and other Comment: Fridays- 3 drinks or 5 beers Patient Tobacco Use Status: Former Tobacco user e-Cigarette/Vaping Use: Never Used service: No Current occupational status: employed 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 1. Little interest or pleasure in doing things: several days 2. Feeling down, depressed, or hopeless: several days 3. Trouble falling or staying asleep, or sleeping too much: several days 4. Feeling tired or having little energy: nearly every day 5. Poor appetite or overeating: nearly every day 6. Feeling bad about yourself - or that you are a failure or have let yourself or your family down: several days 7. Trouble concentrating on things, such as reading the newspaper or watching television: more than half the days 8. Moving or speaking so slowly that other people could have noticed. Or the opposite - being so fidgety or restless that you have been moving around a lot m ore than usual: several days 9. Thoughts that you would be better off or of hurting yourself in some way: not at all Total score: 13 Depression Screening Interpretation: Positive Depression Screening Follow-up: Existing condition and In treatment Depression Screening Done: Yes 81697 - PHQ-9 Billing: Yes Source: Developed by Drs. Placido Dietrich, Ольга Galaviz, Kavon Mariee and colleagues, with an educational cristofer from [employer]. Thrive Questionnaire Date Thrive assessed: 02/12/25 I am a: Patient What is your living situation today?: I have a steady place to live Within the past 12 months, did the food you bought not last and you didn't have the money to get more?: Never true Within the past 12 months, did you worry whether your food would run out before you got money to buy more?: Never true Do you have trouble paying for medicines?: No Do you have trouble getting transportation to medical appointments?: No Do you have trouble paying your heating and electricity bill?: No Do you have trouble taking care of your child, family member or friend?: No Do you have trouble with day-to-day activities such as bathing, preparing meals, shopping, managing finances, etc.?: No Are you currently unemployed and looking for a job?: Yes Are you interested in more education?: No Please select the resources that you would like help with: None Currently or been in a relationship where the following occur: No concerns reported THRIVE Score: 0 AUDIT C Alcohol Use Questionnaire (AUDIT-C) 1. How often do you have a drink containing alcohol?: Never 2. How many drinks containing alcohol do you have on a typical day when you are drinking?: 1 or 2 3. How often do you have six or more drinks on one occasion?: Never Total Score: 0 Score Reviewed/Action Taken: Yes LATONYA-7 AMB Questionnaire LATONYA-7 Date LATONYA - 7 assessed: 02/12/25 Feeling nervous, anxious, or on edge: 0 = Not at all Not being able to stop or control worryin = Not at all Worrying too much about different things: 0 = Not at all Trouble relaxin = Not at all Being so restless that it is hard to sit still: 0 = Not at all Becoming easily annoyed or irritable: 0 = Not at all Feeling afraid as if something awful might happen: 0 = Not at all Total LATONYA-7 score (0-4 normal; 5-9 mild; 10-14 moderate; 15-21 severe): 0 Source: Developed by Drs. Placido Dietrich, Ольга Galaviz, Kavon Mariee and colleagues, with an educational cristofer from [employer]. LATONYA-7 Assessment Billing LATONYA-7 Assessment Tool: LATONYA-7 Assessment 21084 ACT Questionnaire In the past 4 weeks, how much of the time did your asthma keep you from getting as much done at work, school or at home?: None of the time During the past 4 weeks, how often did your asthma symptoms wake you up at night or earlier than usual in the morning?: Not at all During the past 4 weeks, how often have you had to use your rescue inhaler or nebulizer medication?: Not at all How would you rate your asthma control during the past 4 weeks?: Completely controlled ACT Interpretation: Negative Score: 20 Physical exam (Primary Care) Vital Signs: Last Vital Signs Temp 97.1 F 02/12/25 11:55 Pulse 60 02/12/25 11:55 Resp 12 02/12/25 11:55 BP 105/68 02/12/25 11:55 Pulse Ox 99 02/12/25 11:55 Oxygen Delivery Method Room Air 02/12/25 11:55 BMI result Body Mass Index 30.8 BMI Assessment/Plan discussion: High BMI High, discussed plan: lifestyle Tobacco/Smoking Status: Tobacco use Status Tobacco use date assessed 02/12/25 02/12/25 11:54 Patient Tobacco Use Status Former Tobacco user 02/12/25 11:54 e-Cigarette/Vaping Use Never Used 02/12/25 11:54 PHQ-9: PHQ-9 Score PHQ-9: Total score 13 02/12/25 16:03 Depression Screening Interpretation: Positive Depression Screening Follow-up: Existing condition and In treatment Thrive Assessment: Date of Thrive Assessment Date Thrive assessed 02/12/25 02/12/25 11:54 Currently or been in a relationship where the following occur: No concerns reported Results Reviewed Results Reviewed: Laboratory 02/12/25 Result Units Range Interpretation Provider Comments Sodium Level 138 mmol/L (135-145) Potassium Level 4.0 mmol/L (3.3-5.1) Chloride Level 107 mmol/L (96-108) Carbon Dioxide Level 24 mmol/L (22-29) Anion Gap 11 (12-20) Low Blood Urea Nitrogen 17 mg/dL (9-16) High Creatinine 0.68 mg/dL (0.5-1.4) Estimated Creatinine Clearance Calc Not Reportable Estimat Glomerular Filtration Rate > 60 Random Glucose 86 mg/dL (60-115) Estimated Average Glucose 82 mg/dL Hemoglobin A1c Percent 4.5 % (<6.0) Calcium Level 8.5 mg/dL (8.4-10.2) Delta Total Bilirubin 0.3 mg/dL (0.0-1.0) Aspartate Amino Transf (AST/SGOT) 23 U/L (5-31) Alanine Aminotransferase (ALT/SGPT) 13 U/L (0-31) Alkaline Phosphatase 57 U/L (39-117) Total Protein 7.3 g/dL (6.5-8.0) Albumin 4.0 g/dL (3.5-5.0) Triglycerides Level 45 mg/dL (<150) Cholesterol Level 152 mg/dL (<200) LDL Cholesterol, Calculated 65 mg/dL (<100) HDL Cholesterol 78 mg/dL (>40) Vitamin B12 Level 1044 pg/mL (200-900) High 25-Hydroxy Vitamin D Total 52.9 ng/mL (>30) Folate 6.9 ng/mL (> or = 4.0) Urine Creatinine 65.43 mg/dL Urine Microalbumin < 5.0 mg/L Urine Microalbumin/Creatinine Ratio TNP Coding Level of Care Code Est Pt Level 3 (93103) Est Pt Prev Care 40-64y(18363) Diagnoses Encounter for general adult medical examination without abnormal findings Z00.00 LATONYA (generalized anxiety disorder) F41.1 Obesity E66.9 Chronic GERD K21.9 Abnormal uterine bleeding (AUB) N93.9 Chronic bilateral low back pain with bilateral sciatica M54.42; M54.41; G89.29 Back pain laterality: bilateral Sciatica presence: with sciatica Sciatica laterality: bilateral sciatica Mild intermittent asthma in adult without complication J45.20 Laboratory exam ordered as part of routine general medical examination Z00.00 Hx of laparoscopic gastric banding Z98.84 History of tubal ligation Z98.51 Additional Codes Asthma Control Questionnaire - ACT Interpretation: Negative ([id number]) LATONYA-7 Assessment Billing - LATONYA-7 Assessment Tool: LATONYA-7 Assessment 84565 ([id number]) PHQ-9 - 88836 - PHQ-9 Billing: Yes ([id number]) Assessment & Plan Assessment & Plan (1) Encounter for general adult medical examination without abnormal findings: Onset Date: ~02/12/25 Code(s): Z00.00 - Encounter for general adult medical examination without abnormal findings Category: Medical (2) LATONYA (generalized anxiety disorder): Code(s): F41.1 - Generalized anxiety disorder Category: Medical (3) Obesity: Code(s): E66.9 - Obesity, unspecified Category: Medical (4) Chronic GERD: Code(s): K21.9 - Gastro-esophageal reflux disease without esophagitis Category: Medical (5) Abnormal uterine bleeding (AUB): Code(s): N93.9 - Abnormal uterine and vaginal bleeding, unspecified Category: Medical (6) Chronic low back pain: Code(s): M54.50 - Low back pain, unspecified; G89.29 - Other chronic pain Category: Medical Qualifiers: Back pain laterality: bilateral Sciatica presence: with sciatica Sciatica laterality: bilateral sciatica Qualified Code(s): M54.42 - Lumbago w ith sciatica, left side; M54.41 - Lumbago with sciatica, right side; G89.29 - Other chronic pain (7) Mild intermittent asthma in adult without complication: Code(s): J45.20 - Mild intermittent asthma, uncomplicated Category: Medical (8) Laboratory exam ordered as part of routine general medical examination: Code(s): Z00.00 - Encounter for general adult medical examination without abnormal findings Category: Medical (9) Hx of laparoscopic gastric banding: Onset Date: ~2005 Code(s): Z98.84 - Bariatric surgery status Category: Surgical (10) History of tubal ligation: Onset Date: ~2003 Code(s): Z98.51 - Tubal ligation status Category: Surgical Plan . Orders: Orders MM tomosynthesis screening BI 02/12/25 Z12.31 - Encounter for screening mammogram for malignant neoplasm of breast Hemoglobin A1c 02/12/25 Z00. - Encounter for general adult medical examination without abnormal findings Microalbumin, Random (w Creat) 02/12/25 Z. - Encounter for general adult medical examination without abnormal findings Comprehensive Met. Panel 02/12/25 Z. - Encounter for general adult medical examination without abnormal findings Lipid Panel 02/12/25 Z00. - Encounter for general adult medical examination without abnormal findings Vitamin B12 and Folate 02/12/25 Z00. - Encounter for general adult medical examination without abnormal findings Vitamin D 25-OH Total 02/12/25 Z00. - Encounter for general adult medical examination without abnormal findings Medications: New pantoprazole 40 mg PO DAILY 90 tabs 2RF Refilled paroxetine HCl (Paxil) 10 mg PO DAILY 90 tabs 2RF hydroxyzine HCl 1-2 tabs as needed at bedtime to help with anxiety and insomnia 25 mg PO BEDTIME PRN 45 tabs 1RF anxiety and insomnia Discontinued pantoprazole Discontinued Reason: Doctor's Order 20 mg PO DAILY 60 tabs 3RF Patient Instructions: Health screenings for women You should visit your health care provider from time to time, even if you are healthy. The purpose of these visits is to: Screen for medical issues Assess your risk for future medical problems Encourage a healthy lifestyle Update vaccinations and other preventive care services Help you get to know your provider in case of an illness Information Even if you feel fine, you should still see your provider for regular checkups. These visits can help you avoid problems in the future. For example, the only way to find out if you have high blood pressure is to have it checked regularly. High blood sugar and high cholesterol levels also may not have any symptoms in the early stages. A simple blood test can check for these conditions. There are specific times when you should see your provider or receive specific health screenings. The [place] Preventive Services Task Force publishes a list of recommended screenings. Below are screening guidelines for women ages 18 to 39. BLOOD PRESSURE SCREENING Your blood pressure should be checked at least once every 3 to 5 years if: Your blood pressure is in the normal range (top number less than 120 mm Hg and bottom number less than 80 mm Hg) You don't have risk factors for high blood pressure Ask your provider if you need your blood pressure checked more often if: The top number is 120 to 129 mm Hg or the bottom number is 70 to 79 mm Hg You have diabetes, heart disease, kidney problems, are overweight, or have certain other health conditions You have a first-degree relative with high blood pressure You are Black You had high blood pressure during a If the top number is 130 mm Hg or greater or the bottom number is 80 mm Hg or greater, this is considered stage 1 hypertension. Schedule an appointment with your provider to learn how you can reduce your blood pressure. Watch for blood pressure screenings in your area. Ask your provider if you can stop in to have your blood pressure checked. BREAST CANCER SCREENING Experts do not agree about the benefits of breast self-exams in finding breast cancer or saving lives. Talk to your provider about what is best for you. A screening mammogram is not recommended for most women under age 40. Your provider may discuss and recommend mammograms, MRI scans, or ultrasounds if you have an increased risk for breast cancer, such as: A mother or sister who had breast cancer at a young age (most often starting screening earlier than the age the close relative was diagnosed) You carry a high-risk genetic marker CERVICAL CANCER SCREENING Cervical cancer screening should start at age 21 years unless your provider advises otherwise. After the first test: Women ages 21 through 29 should have a Pap test every 3 years. Exoprts do not agree on whether HPV testing is recommended for this age group. Women ages 30 through 65 should be screened with either a Pap test every 3 years or the HPV test every 5 years or both tests every 5 years (called cotesting ). Women who have been treated for precancer (cervical dysplasia) should continue to have Pap tests for 20 years after treatment or until age 65, whichever is longer. If you have had your uterus and cervix removed (total hysterectomy), and you have not been diagnosed with cervical cancer or precancer (high grade cervical neoplasia), you do not need cervical cancer screening. CHOLESTEROL SCREENING Cholesterol screening should begin at: Age 45 for women with no known risk factors for coronary heart disease Age 20 for women with known risk factors for coronary heart disease Repeat cholesterol screening should take place: Every 5 years for women with normal cholesterol levels More often if changes occur in lifestyle (including weight gain and diet) More often if you have diabetes, heart disease, kidney problems, or certain other conditions DIABETES SCREENING You should be screened for diabetes starting at age 35 and then repeated every 3 years if you have no risk factors for diabetes. Screening may need to start earlier and be repeated more often if you have other risk factors for diabetes, such as: You have a first degree relative with diabetes. You are overweight or have obesity. You have high blood pressure, prediabetes, or a history of heart disease. Screening for diabetes should be done if you are planning to become and you are overweight and have other risk factors such as high blood pressure. DENTAL EXAM Go to the dentist once or twice every year for an exam and cleaning. Your dentist will evaluate if you need more frequent visits. EYE EXAM Have an eye exam every 5 to 10 years before age 40. If you have vision problems, have an eye exam every 2 years or more often if recommended by your provider. You should have an eye exam that includes an examination of your retina (back of your eye) at least every year if you have diabetes. IMMUNIZATIONS Commonly needed vaccines include: Flu shot: get one every year. COVID-19 vaccine: ask your provider what is best for you. Tetanus-diphtheria and acellular pertussis (Tdap) vaccine: have one at or after age 19 as one of your tetanus-diphtheria vaccines if you did not receive it as an adolescent. Tetanus-diphtheria: have a booster (or Tdap) every 10 years. Varicella vaccine: receive 2 doses if you never had chickenpox or the varicella vaccine. Hepatitis B vaccine: receive 2, 3, or 4 doses, depending on your exact circumstances. Measles, mumps, and rubella (MMR) vaccine: receive 1 to 2 doses if you are not already immune to MMR. Your provider can tell you if you are immune. Ask your provider about the human papillomavirus (HPV) vaccine if: You have not received the HPV vaccine in the past You have not completed the full vaccine series (you should catch up on this shot) Ask your provider if you should receive other immunizations if you have certain health problems that increase your risk for some diseases such as pneumonia. INFECTIOUS DISEASE SCREENING Women who are sexually active should be screened for chlamydia and gonorrhea up until age 25. Women 25 years and older should be screened for chlamydia and gonorrhea if at high risk. Screening for hepatitis C: All adults ages 18 to 79 should get a one-time test for hepatitis C. people should be screened at every . Screening for human immunodeficiency virus (HIV): All people ages 15 to 65 should get a one-time test for HIV. Depending on your lifestyle and medical history, you may also need to be screened for infections such as syphilis and HIV, as well as other infections. PHYSICAL EXAM All adults should visit their provider from time to time, even if they are healthy. The purpose of these visits is to: Screen for disease Assess your risk of future medical problems Encourage a healthy lifestyle Update your vaccinations and other preventive care services Maintain a relationship with a provider in case of an illness Your height, weight, and BMI should be checked at every exam. During your exam, your provider may ask you about: Depression and anxiety Diet and exercise Alcohol and tobacco use Safety issues, such as using seat belts, smoke detectors, and intimate partner violence Your medicines and risk for interactions SKIN SELF-EXAM Your provider may check your skin for signs of skin cancer, especially if you're at high risk, such as if you: Have had skin cancer before Have close relatives with skin cancer Have a weakened immune system OTHER SCREENING Talk with your provider about colon cancer screening if you have a strong family history of colon cancer or polyps, or if you have had inflammatory bowel disease or polyps yourself. Routine bone density screening of women under 40 is not recommended.
[2025-02-12 11:55] VITALS: BP 105/68; PULSE 60; RESP 12; TEMP 36.2; O2SAT 99; BMI 30.8
--- OUTSIDE RECORDS SUMMARY | 2025-02-12 15:02 | XMS_ITS | Clinical Summary ---
Author Organization [facility] Address [address] [place] [address] Care Team Providers Care Vessel Scrapper Name Role Phone Emily Syed MD Primary [...] age to complete this topic Care Teams Vessel Scrapper Relationship Specialty Start Date End Date Emily Syed MD [address] [phone] PCP - General Internal Medicine 05/09/19
== END 2025-02-12 13:02 | disposition home or self-care (01) ==
LOC: HO.HMCFM 11:50
PROVIDERS: PCP Nurse Practitioner Family; Visit Provider Nurse Practitioner Family
DX: Z00.00 Encounter for general adult medical examination without abnormal findings (principal); F41.1 Generalized anxiety disorder; E66.9 Obesity, unspecified; Z68.30 Body mass index [BMI] 30.0-30.9, adult; K21.9 Gastro-esophageal reflux disease without esophagitis; N93.9 Abnormal uterine and vaginal bleeding, unspecified; M54.42 Lumbago with sciatica, left side; M54.41 Lumbago with sciatica, right side; G89.29 Other chronic pain; J45.20 Mild intermittent asthma, uncomplicated; Z98.84 Bariatric surgery status; Z98.51 Tubal ligation status

== ENCOUNTER 2025-02-12 11:49 | Outpatient (REF) | payer OTHER, SELFPAY ==
[2025-02-12 15:18] LABS: Alanine Aminotransferase 13 U/L (0-31); Albumin Level 4.0 g/dL (3.5-5.0); Alkaline Phosphatase 57 U/L (39-117); Anion Gap 11 (12-20); Aspartate Amino Transferase 23 U/L (5-31); Blood Urea Nitrogen 17 mg/dL (9-16); Calcium 8.5 mg/dL (8.4-10.2); Carbon Dioxide 24 mmol/L (22-29); Chloride 107 mmol/L (96-108); Cholesterol 152 mg/dL (<200); Estimated Glomerular Filt Rate > 60; HDL Cholesterol 78 mg/dL (>40); Potassium 4.0 mmol/L (3.3-5.1); Sodium 138 mmol/L (135-145); Total Protein 7.3 g/dL (6.5-8.0); Triglycerides 45 mg/dL (<150)
[2025-02-12 16:16] LABS: Folate 6.9 ng/mL (> or = 4.0); Vitamin B12 1044 pg/mL (200-900)
== END 2025-02-12 11:50 | disposition home or self-care (01) ==
LOC: HO.WFDLDS 11:49
PROVIDERS: PCP Nurse Practitioner Family; Visit Provider Nurse Practitioner Family
DX: Z00.00 Encounter for general adult medical examination without abnormal findings (principal); F41.1 Generalized anxiety disorder; E66.9 Obesity, unspecified; K21.9 Gastro-esophageal reflux disease without esophagitis; N93.9 Abnormal uterine and vaginal bleeding, unspecified; M54.42 Lumbago with sciatica, left side; M54.41 Lumbago with sciatica, right side; G89.29 Other chronic pain; J45.20 Mild intermittent asthma, uncomplicated; Z98.84 Bariatric surgery status; Z98.51 Tubal ligation status; Z79.891 Long term (current) use of opiate analgesic; Z79.899 Other long term (current) drug therapy
CPT/HCPCS: 36415; 80053; 80061; 82043; 82306; 82570; 82607; 82746; 83036; 96127; 96160; 99212; 99396

== ENCOUNTER 2025-02-18 09:44 | Outpatient (AMB) | payer OTHER, SELFPAY ==
--- NOTE | 2025-02-18 09:48 | A.OFFVIS_ITS ---
Vital Signs 3 02/18/25 09:55 Height 5 ft 3 in Weight 174 lb BMI 30.8 BP 114/61 Blood Pressure Location Lt brachial Position Sitting Pulse 58 Pulse Source Pulse Oximeter Pulse Oximetry (%) 98 Oxygen Delivery Method Room Air Intake Visit Reasons: LEFT L3, L4, L5 MB RFA Intake Note: Pain today 07/15 Finance Lecturer Required: No Accompanied by: Self / Same As Patient Allergies pineapple Allergy (Intermediate, Verified 02/18/25 09:55) Anaphylaxis diclofenac Adverse Reaction (Mild, Verified 02/18/25 09:55) Swelling SEASONAL ALLERGIES Allergy (Intermediate, Uncoded 02/12/25 11:52) RUNNY NOSE WATERY ITCHY EYES HPI Comments Details: The patient is a 44-year-old female presenting with lumbar pain. She is one month status post left lumbar medial branch radiofrequency ablation (RFA) at levels L3, L4, and L5. The procedure has resulted in significant improvement on the left side, with pain reduced to 1-2/10 and at least 80% improvement in functioning, ROM and sleep. The right side has been more problematic, with pain levels reported at 5-6/19, particularly worse in the morning upon waking and daily activities. The patient had initially sought treatment for the right side, but the left side was addressed first. Insurance approval for the right side RFA was approved yesterday and patient requests with booking right sided lumbar RFA. Denies any recent cough, cold, infection, fever or any significant changes in medical history since last office visit. Past Procedures: 01/23/25: Left L3-L4 DR L5 Medial Branch RFA- 80% ongoing pain relief 11/28/24: Bilateral Therapeutic L3-L4 DR L5 MBB- 40-50% ongoing pain relief 10/03/24: Bilateral Diagnostic L3-L4 DR L5 MBB- 80% pain relief for >3 weeks PRIOR: Patient presents today for follow up to discuss recent lumbar spine MRI results. She continues to endorse lower back pain with bilateral radiculopathy and numbness and tingling in her toes, worse in big toes bilaterally. Patient also reports she lost her balance last week and fell. Reports increased back and left knee pain and occasional right knee pain. She reports axial low back pain has been worse than radicular pain. She is interested to proceed with diagnostic lumbar medial branch blocks to confirm axial low back pain. Denies any recent cough, cold, infection, fever, foot drop, bladder or bowel dysfunction, saddle anesthesia or any other significant changes in medical history since last office visit. [facility] old records were reviewed and noted for Caudal JAMES injections on 04/08/2015 and 06/17/[address] Foss for CLBP and LE pain with good pain relief. PRIOR: Patient is a pleasant 43 years old female with history of lower back pain, left shoulder, bilateral breast reduction with implants and abdominoplasty (07/2023), lumbar degenerative disc disease with facet arthropathy at L5-S1, presents today for initial evaluation of lower back pain with radicular symptoms and left knee pain. Knee pain has been present for 6 months, back pain for over 10 years. Denies any recent trauma, injury or falls. Reports mechanical fall downstairs over 10 years which worsened back pain. She has been seen at [facility] and received injections in 2016 with good relief. Patient also went to [facility] in [place] few months ago and completed lumbar spine and knee xray but had no injections. She is currently in physical therapy at [facility]. Back pain is axial and also significantly increases with flexing or bending forward with reproduction of pain on right side. She also reports anterior left knee pain with walking, climbing stairs or cold weather. 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 Denies any fever or chills, abdominal or groin pain, weakness, bladder or bowel dysfunction or saddle anesthesia. Oswestry Low Back Disability Score=21 (moderate disability) Location: Lower back radiates down bilateral legs; left knee worse Duration: Chronic pain for >10 years ago, h/o mechanical fall downstairs Characteristics of symptom or complaint: Aching, numbness, sharp, shooting, radiating, tingling, burning, sore Aggravating or associated factors: Prolonged standing, ADLs, movements, walking, climbing stairs, cold weather Relieving factors: Ibuprofen, laying flat, heating pad, Tylenol, rest, activity modifications Treatment: PT at [facility], lumbar and knee xrays; h/o injections at [facility] Medical History Abnormal uterine bleeding (AUB) Pelvic fullness Acid reflux Sinusitis Lower back pain Asthma Surgical History History of Papanicolaou smear of cervix (~2023) Hx of abdominoplasty Hx of breast implant Hx of laparoscopic gastric banding (~2005) History of tubal ligation (~2003) Family History Mother Schizophrenia Mental health disorder Asthma Father Asthma Sister Substance abuse Social History Household Members: Family Both parents involved: No Caregiver staying overnight: No Housing: House Are you a primary child care provider to a significant other at home: No Do you presently have visiting nurse or other home services: No 75 years or older and lives alone: No Alcohol intake: current Alcohol type: beer and other Comment: Fridays- 3 drinks or 5 beers Patient Tobacco Use Status: Former Tobacco user e-Cigarette/Vaping Use: Never Used service: No Current occupational status: employed 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 All systems reviewed & are unremarkable except as noted in HPI and below Physical Exam Vital Signs: Last Vital Signs Pulse 58 02/18/25 09:55 BP 114/61 02/18/25 09:55 Pulse Ox 98 02/18/25 09:55 Oxygen Delivery Method Room Air 02/18/25 09:55 BMI result Body Mass Index 30.8 General: Appears afebrile. Alert and oriented. Mood and affect appropriate. Follows and participates in conversation appropriately. Respiratory effort is unlabored. No cough. Able to transition from sit to stand unassisted. Ambulates with bilaterally normal heel strike and toe off. General: Yes no CVA tenderness Back/Spine/Pelvis Other: Lumbar flexion reproduces mild pain, extension and axial rotations reproduces mild to moderate pain on the right, very mild discomfort on the left s/p recent RFA. Demonstrates 5/5 strength of quadriceps bilaterally as well as flexion/dorsiflexion of bilateral feet against resistance. 2+ pedal pulses bilaterally. Straight leg rise with dorsiflexion negative bilaterally. +2 patellar and achilles reflexes bilaterally. Facet loading test positive bilaterally, R>L. Maris sign positive bilateraly. David?s and Stinchfield tests are negative bilaterally. No groin pain with I/E hip rotations. Valsalva maneuver negative. Back: no CVA tenderness Cervical Spine: cervical ROM normal and No Cervical spine tenderness Thoracic/Lumbar Spine: thoracic and lumbar spine normal to inspection, No Thoracic/lumbar spine scar(s), Lasegue's sign negative, straight leg raise negative bilaterally, pain with thoraco-lumbar ROM, paraspinal muscle tenderness, thoraco-lumbar ROM limited, No thoracic spinal tenderness and No lumbar spinal tenderness Sacroiliac joints: bilaterally (+David's) tender to palpation (minimal) Extrem General: Yes capillary refill normal, Yes no clubbing, cyanosis or edema and Yes no calf tenderness Results Reviewed Results Reviewed: MR LUMBAR SPINE WITHOUT CONTRAST 06/18/24 CLINICAL INFORMATION: Spondylosis with radiculopathy. COMPARISON: Lumbar spine x-ray 01/02/2016 FINDINGS: There is normal lumbar lordosis. The vertebral heights and alignment is normal. The T12-L1, L1-2, L2-3 disc levels are unremarkable. At L3-4 disc level there is minimal disc bulge flattening slightly eccentric to the right with mild flattening of ventral thecal sac without spinal canal stenosis. There is mild narrowing of right lateral recess and proximal neural foramina. The left neural foramina appear patent. At L4-5 disc level there is no significant disc bulge, herniation or spinal canal stenosis. The neural foramina are patent in spite of mild facet joint arthropathy and minimal hypertrophy. At L5-S1 disc level there is no significant disc bulge, herniation or spinal canal stenosis. The neural foramina are patent bilaterally. Incidentally noted is a central disc herniation at T11-T12 disc level with minimal AP canal narrowing. Conus medullaris terminates at T12-L1 disc level and appears normal in morphology. IMPRESSION: Mild disc bulge eccentric to the right resulting in moderate right inferolateral recess and neural foraminal narrowing at the L3-4 disc level. Incidental finding of central disc herniation at T11-12 disc level without spinal canal stenosis. Assessment & Plan Assessment & Plan (1) Lumbar spondylosis: Code(s): M47.816 - Spondylosis without myelopathy or radiculopathy, lumbar region Category: Medical (2) Chronic low back pain: Code(s): M54.50 - Low back pain, unspecified; G89.29 - Other chronic pain Category: Medical Qualifiers: Back pain laterality: bilateral Sciatica presence: with sciatica S ciatica laterality: bilateral sciatica Qualified Code(s): M54.42 - Lumbago with sciatica, left side; M54.41 - Lumbago with sciatica, right side; G89.29 - Other chronic pain (3) Lumbar degenerative disc disease: Code(s): M51.369 - Other intervertebral disc degeneration, lumbar region without mention of lumbar back pain or lower extremity pain Category: Medical Plan The plan is to proceed with L3-L4 DR L5 Medial Branch radiofrequency ablation on the right lumbar region with local, oral sedation and fluoroscopy. Approval for the procedure is valid until April 17, and scheduling will be coordinated with the office staff. Patient reports ongoing 80% pain relief for left side s/p recent RFA with improved pain and sleep on that side. All questions and concerns have been answered and patient agreed with the treatment plan. Follow up after right sided RFA and sooner as needed. Patient was informed and verbally consented to the use of an ambient scribe for clinic note documentation during this visit. Patient Instructions: - Schedule the right side radiofrequency ablation with the office staff. - Follow up with any questions or concerns regarding the procedure. Coding Level of Care Code Est Pt Level 3 (90770) Complex EM visit Add On G2211 Diagnoses Lumbar spondylosis M47.816 Chronic bilateral low back pain with bilateral sciatica M54.42; M54.41; G89.29 Back pain laterality: bilateral Sciatica presence: with sciatica Sciatica laterality: bilateral sciatica Lumbar degenerative disc disease M51.369
[2025-02-18 09:55] VITALS: BP 114/61; PULSE 58; O2SAT 98; BMI 30.8
== END 2025-02-18 10:07 | disposition home or self-care (01) ==
LOC: HO.PMC 09:45
PROVIDERS: PCP Nurse Practitioner Family; Visit Provider Nurse Practitioner Family
DX: M47.816 Spondylosis without myelopathy or radiculopathy, lumbar region (principal); M54.42 Lumbago with sciatica, left side; M54.41 Lumbago with sciatica, right side; G89.29 Other chronic pain; M51.369 Other intervertebral disc degeneration, lumbar region without mention of lumbar back pain or lower extremity pain
CPT/HCPCS: 99213

== ENCOUNTER → 2025-02-18 09:44 | Outpatient (BNVA) | payer OTHER, SELFPAY | PROVIDERS: PCP Nurse Practitioner Family; Visit Provider Nurse Practitioner Family | DX: M47.816 Spondylosis without myelopathy or radiculopathy, lumbar region (principal); M51.369 Other intervertebral disc degeneration, lumbar region without mention of lumbar back pain or lower extremity pain; M54.41 Lumbago with sciatica, right side; M54.42 Lumbago with sciatica, left side; G89.29 Other chronic pain | CPT/HCPCS: 99212 ==

== ENCOUNTER 2025-02-20 07:56 | Outpatient (AMB) | payer OTHER, SELFPAY ==
--- OUTSIDE RECORDS SUMMARY | 2025-02-20 08:00 | XMS_ITS | Clinical Summary ---
Author Organization [facility] Address [address] [place] [address] Care Team Providers Care Java Mobile Developer Name Role Phone Emily Syed MD Primary [...] age to complete this topic Care Teams Java Mobile Developer Relationship Specialty Start Date End Date Emily Syed MD [address] [phone] PCP - General Internal Medicine 05/09/19
--- NOTE | 2025-02-20 08:02 | MHC.OFFVIS ---
Vital Signs 02/20/25 08:04 Height 5 ft 3 in Weight 175 lb BMI 31.0 BP 118/68 Intake Visit Reasons: US follow up Last Waxer Required: No Information Interpreted: non-clinical & clinical Taxi Cab Driver: Taxi Cab Driver Present Accompanied by: Self / Same As Patient Allergies pineapple Allergy (Intermediate, Verified 02/20/25 08:05) Anaphylaxis diclofenac Adverse Reaction (Mild, Verified 02/20/25 08:05) Swelling SEASONAL ALLERGIES Allergy (Intermediate, Uncoded 02/20/25 08:05) RUNNY NOSE WATERY ITCHY EYES Is last menstrual period known: Yes Last menstrual period: 01/31/25 HPI Comments Details: Patient is here today for a follow up pelvic ultrasound, history of pelvic fullness on last exam. She reports no menses this past cycle, prior abnormal uterine bleeding-bled heavier for 11 days, normal cycle 3 days. Denies any pelvic pain or other concerns. History of tubal ligation. [facility] Medical History Abnormal uterine bleeding (AUB) Pelvic fullness Acid reflux Sinusitis Lower back pain Asthma Surgical History History of Papanicolaou smear of cervix (~2023) Hx of abdominoplasty Hx of breast implant Hx of laparoscopic gastric banding (~2005) History of tubal ligation (~2003) Family History Mother Schizophrenia Mental health disorder Asthma Father Asthma Sister Substance abuse Social History Household Members: Family Both parents involved: No Caregiver staying overnight: No Housing: House Are you a primary menagerie caretaker to a significant other at home: No Do you presently have visiting nurse or other home services: No 75 years or older and lives alone: No Alcohol intake: current Alcohol type: beer and other Comment: Fridays- 3 drinks or 5 beers Patient Tobacco Use Status: Former Tobacco user e-Cigarette/Vaping Use: Never Used service: No Current occupational status: employed 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 Current occupational exposures/hazards: No Cognitive needs: No Hearing needs: No Vision needs: No Female Reproductive History Menstrual Age of Menarche: 14 Date of last menstrual period: 01/31/25 Review of Systems Const All systems reviewed & are unremarkable except as noted in HPI and below Endo Reports no additional complaints Physical Exam Vital Signs: Last Vital Signs BP 118/68 02/20/25 08:04 BMI result Body Mass Index 31.0 Const General: cooperative, healthy appearing and no acute distress Psych Appearance: well kempt Attitude: cooperative Thought process: Normal thought process present Results Reviewed Results Reviewed: [address] [address] Ultrasound Report Signed Patient: Minnie Nguyen MR#: [id number] : 1980 Acct:[id number] Age/Sex: 44 / F ADM Date: 01/31/25 Loc: HO.US Attending Dr: Patience Bennett CNM Ordering Physician: Patience Bennett CNM Date of Service: 01/31/25 Procedure(s): US pelvic and transvaginal Accession Number(s): [id number] cc: Patience Bennett CNM; [facility]-~ EXAMINATION: US PELVIS CLINICAL INFORMATION: R19.00 - Intra-abdominal and pelvic swelling, mass and lump, unspecified COMPARISON: CT performed September 14, 2016 TECHNIQUE: Ultrasound of the pelvis is performed using both transabdominal and transvaginal transducers along with Doppler. Transvaginal imaging is performed due to inadequate visualization transabdominally. FINDINGS: Uterus: The uterus is anteverted and measures 6.1 x 2.5 x 4.0 cm. The double wall endometrial thickness is 4 mm. The uterus has a coarse echotexture. No discrete mass was identified. No visible fibroid. Adnexa: Right ovary measures 2.1 x 3.4 x 1.5 cm. Left ovary is not seen. Left adnexa is obscured by bowel gas. US/US pelvic and transvaginal IMPRESSION: Possible adenomyosis. The uterus is heterogeneous echotexture without a discrete mass. Electronically signed by: Joe Morales MD 01/31/2025 04:27 PM EDT Dictated By: Joe Morales MD Signed By: <Electronically signed by Joe Morales MD in OV> 01/31/25 1627 DD/ 1603 TD/TT: 01/31/25 1614 Novelty Twister Tender: Assessment & Plan Assessment & Plan (1) Abnormal uterine bleeding (AUB): Code(s): N93.9 - Abnormal uterine and vaginal bleeding, unspecified Category: Medical Plan Discussed: Ultrasound findings- IMPRESSION: Possible adenomyosis. The uterus is heterogeneous echotexture without a discrete mass. No indication of adenomyosis at this time, further studies will be required to make that diagnosis. Monitor menstrual cycles, report any unscheduled bleeding, bleeding episodes <24 days apart or heavy/prolonged menstrual bleeding. Reviewed perimenopausal changes. Call the office for a follow up for any concerns. If reoccurrence of abnormal uterine bleeding, notify office, recommended endometrial biopsy to rule out any abnormal endometrial tissue including atypia, hyperplasia, precancer or cancer. Pre procedure anticipatory guidance reviewed, advised to take 3 Advil with food and fluids 1 hour before the procedure time. Patient has tolerated ibuprofen without reaction in the past. The patient expressed understanding and agreement with the plan of care. All of her questions and concerns were addressed to the best of my ability. Annual exam scheduled May 2025. This note is constructed using voice recognition software. While every effort has been made to ensure accuracy, dressmaker garment fitter errors may have been included. Coding Level of Care Code Est Pt Level 3 (08653) Diagnoses Abnormal uterine bleeding (AUB) N93.9
[2025-02-20 08:04] VITALS: BP 118/68; BMI 31.0
== END 2025-02-20 08:33 | disposition home or self-care (01) ==
LOC: HO.HWS 07:56
PROVIDERS: PCP Nurse Practitioner Family; Visit Provider Advanced Practice Midwife
DX: N93.9 Abnormal uterine and vaginal bleeding, unspecified (principal)
CPT/HCPCS: 99213

== ENCOUNTER → 2025-02-20 07:56 | Outpatient (BNVA) | payer OTHER, SELFPAY | PROVIDERS: PCP Nurse Practitioner Family; Visit Provider Advanced Practice Midwife | DX: M94.262 Chondromalacia, left knee (principal); N93.9 Abnormal uterine and vaginal bleeding, unspecified | CPT/HCPCS: 20610; 99212; J0665; J1100; J2003 ==

== ENCOUNTER 2025-02-20 14:55 | Outpatient (AMB) | payer OTHER, SELFPAY ==
--- NOTE | 2025-02-20 14:58 | A.OFFVIS_ITS ---
Intake Visit Reasons: left knee cortisone injection, last inj 09/25/24 Intake Note: Minnie is a 44 year old female who presents today for a repeat injection to her left knee, last injection on 09/25/24. Patient states that her last injection helped a little and lasted for about a month. 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 Allergies pineapple Allergy (Intermediate, Verified 02/20/25 15:00) Anaphylaxis diclofenac Adverse Reaction (Mild, Verified 02/20/25 15:00) Swelling SEASONAL ALLERGIES Allergy (Intermediate, Uncoded 02/20/25 15:00) RUNNY NOSE WATERY ITCHY EYES HPI HPI left knee cortisone injection, last inj 09/25/24: Details: Ms. Leon Feng is a 44-year-old female who presents to the office today for continued left knee pain. She last received a cortisone injection on 09/25/2024. She reports this gave her about 1 month of relief. She has been seen by pain management and is scheduled for a nerve ablation for the right L3- L4 L5 MB RFA with Dr. Nguyen on 03/13/2025. [facility] Medical History Abnormal uterine bleeding (AUB) Pelvic fullness Acid reflux Sinusitis Lower back pain Asthma Surgical History History of Papanicolaou smear of cervix (~2023) Hx of abdominoplasty Hx of breast implant Hx of laparoscopic gastric banding (~2005) History of tubal ligation (~2003) Family History Mother Schizophrenia Mental health disorder Asthma Father Asthma Sister Substance abuse Social History Household Members: Family Both parents involved: No Caregiver staying overnight: No Housing: House Are you a primary anesthesiologist and critical care to a significant other at home: No Do you presently have visiting nurse or other home services: No 75 years or older and lives alone: No Alcohol intake: current Alcohol type: beer and other Comment: Fridays- 3 drinks or 5 beers Patient Tobacco Use Status: Former Tobacco user e-Cigarette/Vaping Use: Never Used service: No Current occupational status: employed 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 Range of motion 0-120. Crepitus with range of motion. NVI. Office Procedures AMB Joint Injection/Aspiration Joint Injection/Aspiration Primary Site: left knee Prep: site was prepped using aseptic technique, ethochloride spray was applied and injection warnings given Injected: 40 mg of, with 3 mL of, 1% plain lidocaine, 0.25% bupivacaine, in the joint and decadron Approach Used: anterolateral Procedure: The patient tolerated the procedure well, but had some pain with the injection and there was some relief with the local anesthesia Coding 95086 - Large joint Procedure code (CPT) selection complete Assessment & Plan Assessment & Plan (1) Chondromalacia of left knee: Code(s): M94.262 - Chondromalacia, left knee Category: Medical Plan Ms. Leon Feng is a 44-year-old female who presents to the office today for continued left knee pain. She last received a cortisone injection on 09/25/2024. She reports this gave her about 1 month of relief. She has been seen by pain management and is scheduled for a nerve ablation for the right L3- L4 L5 MB RFA with Dr. Nguyen on 03/13/2025. The patient was offered a cortisone injection in the left knee. The patient was explained the risks, benefits, and alternatives to receiving this injection. After receiving consent for the injection, the patient had the procedure done while in the office today. The patient tolerated the procedure well with no complications. I instructed the patient to allow 2-3 weeks for this injection to be effective. If she continues to have pain the next step would be to petition the insurance company for gel injections. She will contact me via telephone to let me know if she would like to proceed with this. Follow-up will be PRN, or sooner if needed Coding Level of Care Code Est Pt Level 3 (94278) Diagnoses Chondromalacia of left knee M94.262 CPT Codes Coding - 34853 Large joint: 52862 - Large joint ([id number])
--- OUTSIDE RECORDS SUMMARY | 2025-02-20 16:36 | XMS_ITS | Clinical Summary ---
Author Organization [facility] Address [address] [place] [address] Care Team Providers Care Personal Assistant Name Role Phone Emily Syed MD [...] age to complete this topic Care Teams Personal Assistant Relationship Specialty Start Date End Date Emily Syed MD [address] [phone] PCP - General Internal Medicine 05/09/19
== END 2025-02-20 15:33 | disposition home or self-care (01) ==
LOC: HO.HOS 14:56
PROVIDERS: PCP Nurse Practitioner Family; Visit Provider Physician Assistant
DX: M94.262 Chondromalacia, left knee (principal)
CPT/HCPCS: 20610; 99213

== ENCOUNTER 2025-03-13 06:19 | Outpatient (REF) | payer OTHER, SELFPAY ==
--- NOTE | ~2025-03-13 | FL_ITS ---
EXAMINATION: FL GUIDANCE ONLY HISTORY: M47.816 - Spondylosis without myelopathy or radiculopathy, lumbar region COMPARISON: None available. TECHNIQUE: Fluoroscopy time: 0.5 minutes. Cumulative Dose: 8.27 mGy. DAP: 0.0545 mGycm2 Images: 5. FINDINGS: Fluoroscopic spot films of the lumbar spine demonstrate needles in the regions of the right L3-4, L4-5, and L5-S1 facet joints. FL/FL guidance in treatment room IMPRESSION: Fluoroscopy during procedure. Please see procedure report for additional information. Electronically signed by: Placido Diego MD 03/13/2025 03:00 PM EDT
== END 2025-03-13 06:20 | disposition home or self-care (01) ==
LOC: CF 06:19
PROVIDERS: Visit Provider Internal Medicine
DX: M47.816 Spondylosis without myelopathy or radiculopathy, lumbar region (principal)
CPT/HCPCS: 64635; 64636; J2003; J2795

== ENCOUNTER 2025-03-13 11:50 | Outpatient (AMB) | payer OTHER, SELFPAY ==
[2025-03-13 12:01] VITALS: BP 86/61; PULSE 63; O2SAT 98; BMI 31.0
--- NOTE | 2025-03-13 12:01 | MHC.OFFVIS ---
Vital Signs 03/13/25 12:01 Height 5 ft 3 in Weight 175 lb BMI 31.0 BP 86/61 L Blood Pressure Location Rt brachial Position Sitting Pulse 63 Pulse Source Pulse Oximeter Pulse Oximetry (%) 98 Oxygen Delivery Method Room Air Intake Visit Reasons: Right L3-L4-L5 MB RFA, Valium & Oxy Anodizing Line Operator Required: No Clam Grower: Clam Grower Present Accompanied by: Employee Allergies pineapple Allergy (Intermediate, Verified 03/13/25 12:02) Anaphylaxis diclofenac Adverse Reaction (Mild, Verified 03/13/25 12:02) Swelling SEASONAL ALLERGIES Allergy (Intermediate, Uncoded 03/13/25 12:02) RUNNY NOSE WATERY ITCHY EYES Medication List - Last Reconciled 03/13/25 by Garima Patton, FIRMWARE TEST ENGINEER diazepam (Valium) 5 mg PO ONCE PRN diazepam (Valium) 5 mg PO ONCE PRN fluticasone furoate 100 mcg/actuation (Arnuity Ellipta) 1 inh inhalation DAILY hydroxyzine HCl 25 mg PO BEDTIME PRN ibuprofen 800 mg PO Q8H PRN ipratropium-albuterol 20-100 mcg/actuation (Combivent Respimat) 1 puff inhalation QID 30 days lidocaine 5% leave on most painful area for up to 12 hrs topical 30 days multivitamin (Multiple Vitamins tablet) 1 tab PO DAILY oxycodone 10 mg PO ONCE PRN 1 day pantoprazole 40 mg PO DAILY paroxetine HCl (Paxil) 10 mg PO DAILY HPI HPI Right L3-L4-L5 MB RFA, Valium & Oxy: Details: Patient presents for scheduled procedure. Denies any recent cough, cold, infection, fever or other significant changes in medical history since last office visit. [facility] Medical History Abnormal uterine bleeding (AUB) Pelvic fullness Acid reflux Sinusitis Lower back pain Asthma Surgical History History of Papanicolaou smear of cervix (~2023) Hx of abdominoplasty Hx of breast implant Hx of laparoscopic gastric banding (~2005) History of tubal ligation (~2003) Family History Mother Schizophrenia Mental health disorder Asthma Father Asthma Sister Substance abuse Social History Household Members: Family Both parents involved: No Caregiver staying overnight: No Housing: House Are you a primary acute care certified nursing assistant to a significant other at home: No Do you presently have visiting nurse or other home services: No 75 years or older and lives alone: No Alcohol intake: current Alcohol type: beer and other Comment: Fridays- 3 drinks or 5 beers Patient Tobacco Use Status: Former Tobacco user e-Cigarette/Vaping Use: Never Used service: No Current occupational status: employed 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 Current occupational exposures/hazards: No Cognitive needs: No Hearing needs: No Vision needs: No Female Reproductive History Menstrual Age of Menarche: 14 Physical Exam Vital Signs: Last Vital Signs Pulse 63 03/13/25 12:01 BP 86/61 L 03/13/25 12:01 Pulse Ox 98 03/13/25 12:01 Oxygen Delivery Method Room Air 03/13/25 12:01 BMI result Body Mass Index 31.0 Office Procedures Details: Radiofrequency lesioning medial branch nerves, RIGHT L3, L4 medial branches and L5 dorsal ramus (L4/5 and L5/S1) (2 levels, 3 nerves) After obtaining written consent, pre-procedure blood pressure and heart rate were stable and recorded in the nursing record. Standard monitors were applied. The patient was placed in the prone position. The lumbar area was prepped with chloraprep and draped in sterile fashion. The skin over the target for each medial branch nerve was anesthetized with 0.5% lidocaine. An 18 gauge radiofrequency cannula was advanced to each target site under fluoroscopic guidance. No paresthesias were elicited with needle placement and aspiration was negative for heme and CSF. Impedences were verified under 600 ohms. Sensory testing (50 Hz) and then motor testing (2 Hz) confirmed needle placement at each site within the appropriate voltage thresholds. Each site was injected with 0.5 ml 2% preservative-free lidocaine. Radiofrequency lesioning was performed for 90 seconds at 80 deg Celcius. Each site was then injected with 0.5ml 0.5% ropivacaine. The needles were removed, skin cleansed and a sterile bandage was applied. The patient tolerated the procedure well and no complications were encountered. Following the procedure the patient's vital signs were stable. The patient was discharged home in good condition with post-procedural instructions. Time Out: Immediately prior to the procedure, the following was verbally confirmed that there is a signed consent form and that the correct patient, planned procedure, site and side are consistent with documentation and that necessary equipment and/or blood products are available prior to the start of the case. Complications: none EBL: <5 cc 18318 - RFA Lumbar Medial Branches 72593 - Lumbar Medial Branches ADDNL Procedure code (CPT) selection complete Assessment & Plan Assessment & Plan (1) Lumbar spondylosis: Code(s): M47.816 - Spondylosis without myelopathy or radiculopathy, lumbar region Category: Medical Plan Patient is status post right L3, L4 medial branches and L5 dorsal ramus radiofrequency ablation. Patient tolerated procedure well and was discharged home in stable condition with discharge instructions. All questions were answered. We will follow-up via telephone or in clinic to assess response to therapy. A follow-up appointment was made during today's visit. Orders: Orders FL guidance in treatment room 03/13/25 M47.816 - Spondylosis without myelopathy or radiculopathy, lumbar region Medications: New oxycodone take 30 minutes prior to arrival for procedure 10 mg PO ONCE PRN 1 tab 0RF pain 1 day diazepam (Valium) please take 30minutes prior to arrival for procedure 5 mg PO ONCE PRN 1 tab 0RF sleep Coding Level of Care Code Procedure Only Diagnoses Lumbar spondylosis M47.816 CPT Codes Radiofrequency Ablation - Rad-Ablation 3: 71852 - RFA Lumbar Medial Branches ([id number]) Radiofrequency Ablation - Rad-Ablation 4: 39677 - Lumbar Medial Branches ADDNL ([id number])
== END 2025-03-13 12:46 | disposition home or self-care (01) ==
LOC: HO.PMCPRC 11:50
PROVIDERS: PCP Nurse Practitioner Family; Visit Provider Internal Medicine
DX: M47.816 Spondylosis without myelopathy or radiculopathy, lumbar region (principal)
CPT/HCPCS: 64635; 64636

== ENCOUNTER 2025-04-01 15:21 | Outpatient (REF) | payer OTHER, SELFPAY ==
--- OUTSIDE RECORDS SUMMARY | 2025-04-01 19:46 | XMS_ITS | Clinical Summary ---
Author Organization [facility] Address [address] [place] [address] Care Team Providers Care Manufacturing Electrician Name Role Phone Emily Syed MD Primary Care Provider [phone] Social History Tobacco Use Types Packs/Day Years [...] age to complete this topic Care Teams Manufacturing Electrician Relationship Specialty Start Date End Date Emily Syed MD [address] [phone] PCP - General Internal Medicine 05/09/19
== END 2025-04-01 15:22 | disposition home or self-care (01) ==
LOC: HO.MAMMO 15:21
PROVIDERS: PCP Family Medicine; Visit Provider Nurse Practitioner Family
DX: Z12.31 Encounter for screening mammogram for malignant neoplasm of breast (principal)
CPT/HCPCS: 77063; 77067

== ENCOUNTER → 2025-04-01 16:30 | Outpatient (BNV) | payer OTHER, SELFPAY | PROVIDERS: PCP Family Medicine; Visit Provider Internal Medicine | DX: Z12.31 Encounter for screening mammogram for malignant neoplasm of breast (principal) | CPT/HCPCS: 77063; 77067 ==

== ENCOUNTER 2025-05-16 09:23 | Outpatient (AMB) | payer OTHER, SELFPAY ==
--- NOTE | 2025-05-16 09:25 | MHC.OFFVIS ---
Vital Signs 05/16/25 09:36 Height 5 ft 3 in Weight 190 lb BMI 33.7 BP 102/62 Intake Visit Reasons: HAND ZIPPER TRIMMER annual exam Investigator Utility Bill Complaints: Investigator Utility Bill Complaints Present (Coral) Accompanied by: Self / Same As Patient Allergies pineapple Allergy (Intermediate, Verified 05/16/25 09:30) Anaphylaxis diclofenac Adverse Reaction (Mild, Verified 05/16/25 09:30) Swelling SEASONAL ALLERGIES Allergy (Intermediate, Uncoded 03/13/25 12:02) RUNNY NOSE WATERY ITCHY EYES Medication List - Last Reconciled 05/16/25 by Keira Huertas CNM diazepam (Valium) 5 mg PO ONCE PRN diazepam (Valium) 5 mg PO ONCE PRN fluticasone furoate 100 mcg/actuation (Arnuity Ellipta) 1 inh inhalation DAILY hydroxyzine HCl 25 mg PO BEDTIME PRN ibuprofen 800 mg PO Q8H PRN ipratropium-albuterol 20-100 mcg/actuation (Combivent Respimat) 1 puff inhalation QID 30 days lidocaine 5% leave on most painful area for up to 12 hrs topical 30 days multivitamin (Multiple Vitamins tablet) 1 tab PO DAILY pantoprazole 40 mg PO DAILY paroxetine HCl (Paxil) 10 mg PO DAILY Is last menstrual period known: Yes Last menstrual period: 05/12/25 Post menopausal: No Patient : No HPI HPI HAND ZIPPER TRIMMER annual exam: Details: Patient is here for her blacking wheel tender annual exam. She is not really having any blacking wheel tender concerns couple of months ago she had had a very prolonged. For almost 3 weeks and she saw Patience for follow-up and had an ultrasound which was within normal limits. The period Normalized after that. Patient has seen her primary care provider she recently had her mammogram. Patient had lost a lot of weight and had a lot of redundant skin and she underwent cosmetic surgery in [place] 2 years ago she had a breast reduction and lift and abdominal plasty and she is still wearing the tight garments to support her new structure. She is very happy with the results. 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 She has a learned where she can void both before going out on her runs with her truck and EN route but sometimes holding her urine is challenging because of the difficulties but she manages. Her Pap smear last year was negative she has no concerns about STIs and declines cultures today. [facility]ENDING S[facility] TO [facility] Medical History Abnormal uterine bleeding (AUB) Pelvic fullness Acid reflux Sinusitis Lower back pain Asthma Surgical History (Updated 05/16/25 @ 10:31 by Keira Huertas CNM) History of Papanicolaou smear of cervix (~2023) Hx of abdominoplasty Hx of breast implant Hx of laparoscopic gastric banding (~2005) History of tubal ligation (~2003) Family History Mother Schizophrenia Mental health disorder Asthma Father Asthma Sister Substance abuse Social History Household Members: Family Both parents involved: No Caregiver staying overnight: No Housing: House Are you a primary care nurse rn to a significant other at home: No Do you presently have visiting nurse or other home services: No 75 years or older and lives alone: No Alcohol intake: current Alcohol type: beer and other Comment: Fridays- 3 drinks or 5 beers Patient Tobacco Use Status: Former Tobacco user e-Cigarette/Vaping Use: Never Used service: No Current occupational status: employed 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 Current occupational exposures/hazards: No Cognitive needs: No Hearing needs: No Vision needs: No Female Reproductive History Menstrual Age of Menarche: 14 Date of last menstrual period: 05/12/25 control method: permanent sterilization Total pregnancies: 3 Full term: 2 Ab spontaneous: 1 Date of last pap smear: 01/24/24 (negative pap smear, negative hpv ) History of abnormal pap smear: No Date of Mammogram: 04/01/25 (bi rad 2) Physical Exam Vital Signs: Last Vital Signs BP 102/62 05/16/25 09:36 BMI result Body Mass Index 33.7 Const General: healthy appearing, comfortable, no acute distress, well developed and alert Nutritional Appearance: average body habitus Orientation/consciousness: patient oriented x3 Limitations: no limitations HEENT Head: Yes normocephalic Neck Neck: Yes normal visual inspection Chest Chest palpation & inspection: normal inspection of the chest Breast/axilla inspection: normal inspection of the breasts and normal inspection of the axillae Breast/axilla palpation: normal palpation of the breasts and normal palpation of the axillae Resp Effort & Inspection: normal respiratory effort GI Inspection: Yes normal to inspection, No Abdominal wall edema and No distended Palpation (GI): Soft to palpation and nontender Other: External exam within normal limits vagina is pink and moist whitish discharge and clear discharge from os consistent with pending ovulation though she is only on day 4 of her cycle. Cervix long close thick parous mobile nontender uterus difficult to palpate secondary to abdominal plasty scars but nontender. Good tone with Kegel. General: Yes bladder normal to palpation External Female Exam: normal external appearance and normal appearance of the urethra Speculum Exam - Vagina: normal appearance of the vagina, normal palpation and normal vaginal discharge Speculum Exam - Cervix: normal appearance of the cervix, normal palpation and nontender Bimanual exam- vagina & uterus: normal bimanual exam, normal palpation, uterine size normal, bladder normal to palpation, consistency normal, normal palpation, uterine mobility normal, uterine shape normal, No Cervical tenderness present, non-tender and no cervical motion tenderness Bimanual Exam- Adnexa, other: normal adnexae, no masses, normal and No adnexal tenderness Neuro General: patient oriented x3 Assessment & Plan Assessment & Plan (1) History of tubal ligation: Onset Date: ~2003 Code(s): Z98.51 - Tubal ligation status Category: Surgical (2) Breast cancer screening by mammogram: Code(s): Z12.31 - Encounter for screening mammogram for malignant neoplasm of breast Category: Medical (3) Screening for cervical cancer: Comment: pap done 01/24/24= negative with negative HPV. Code(s): Z12.4 - Encounter for screening for malignant neoplasm of cervix Category: Medical (4) Well woman exam with routine gynecological exam: Code(s): Z01.419 - Encounter for gynecological examination (general) (routine) without abnormal findings Category: Medical (5) Hx of laparoscopic gastric banding: Onset Date: ~2005 Code(s): Z98.84 - Bariatric surgery status Category: Surgical Plan -----Discussed in this visit the following: healthy balanced diet, regular and consistent exercise, getting recommended health screens, doing the best she can for her particular health concerns, kegel exercises, pap smear screening and followup recommendations, mammography screening and SBE, normal changes in cycles in her life stage--- . Reviewed everything in HPI patient is up-to-date on all of her screens so far. She feels she is doing well she is taking care of herself and we discussed being extra mindful of trying to void whenever she has an opportunity as her work situation makes it extra challenging and it can lead to holding one's urine too long which can lead to difficulties in the future with incontinence and incomplete emptying. She is very mindful of it all. RTC 1 year. Coding Level of Care Code Est Pt Prev Care 40-64y(19495) Diagnoses History of tubal ligation Z98.51 Breast cancer screening by mammogram Z12.31 Screening for cervical cancer Z12.4 Well woman exam with routine gynecological exam Z01.419 Hx of laparoscopic gastric banding Z98.84
[2025-05-16 09:36] VITALS: BP 102/62; BMI 33.7
== END 2025-05-16 14:14 | disposition home or self-care (01) ==
LOC: HO.HWS 09:24
PROVIDERS: PCP Family Medicine; Visit Provider Advanced Practice Midwife
DX: Z01.419 Encounter for gynecological examination (general) (routine) without abnormal findings (principal); Z98.51 Tubal ligation status; Z12.31 Encounter for screening mammogram for malignant neoplasm of breast; Z98.84 Bariatric surgery status
CPT/HCPCS: 99396; 99459

== ENCOUNTER → 2025-05-16 09:23 | Outpatient (BNVA) | payer OTHER, SELFPAY | PROVIDERS: PCP Family Medicine; Visit Provider Advanced Practice Midwife | DX: Z01.419 Encounter for gynecological examination (general) (routine) without abnormal findings (principal); Z12.31 Encounter for screening mammogram for malignant neoplasm of breast; Z98.51 Tubal ligation status; Z98.84 Bariatric surgery status; Z71.3 Dietary counseling and surveillance; Z71.82 Exercise counseling; Z68.33 Body mass index [BMI] 33.0-33.9, adult | CPT/HCPCS: 99396 ==